=== PATIENT | female | born 1960 | race Caucasian/White ===

== ENCOUNTER → 2019-03-26 | Outpatient (CLI) | payer MEDICARE ==
[~2019-03-26] MED LIST: CPR500T PO; DIPH1TAB45 PO; GBPN600T PO; LEVO200T39 PO; LOSA100T16 PO; MELO-195 PO; METR500T PO; PRED-398 PO; TRAM50TA2 PO
--- NOTE | 2019-03-26 16:28 | Diagnostic Imaging Report ---
PATIENT HISTORY: FALL DOWN STAIRS ONE MONTH AGO. RT HIP PAIN. TECHNIQUE: Two views of the right hip. COMPARISON: CT from 2013. FINDINGS: There is end-stage osteoarthritis of the right hip joint with complete joint space loss, marked subchondral sclerosis, prominent osteophytes, and osteonecrosis with flattening of the superior femoral head. No acute fracture is seen. There are degenerative changes in the right sacroiliac joint. IMPRESSION: End-stage osteoarthritis in the right hip joint. No acute fracture is seen. Dictated by: Dictated on workstation # [id number]
== END ==
LOC: RAD 15:04
PROVIDERS: ATTEND Nurse Practitioner Family
DX: M16.11 Unilateral primary osteoarthritis, right hip (principal)
CPT/HCPCS: 73502

== ENCOUNTER → 2019-05-09 | Outpatient (CLI) | payer MEDICARE ==
--- NOTE | 2019-05-09 17:13 | Diagnostic Imaging Report ---
PROCEDURE: US Non-ob pelvis comp/trans. TECHNIQUE: Multiple realtime grayscale images were obtained of the pelvis in various projections endovaginally. Transabdominal imaging was also performed. INDICATION: Postmenopausal bleeding. FINDINGS: Uterus measures 9.0 x 3.9 x 4.0 cm. The endometrium is 7 mm in thickness. No myometrial mass is detected. Ovaries are not visualized. No adnexal mass or free fluid is seen. IMPRESSION: Nonvisualized ovaries. The study is otherwise unremarkable. Dictated by: Dictated on workstation # [id number]
== END ==
LOC: RAD 14:05
PROVIDERS: ATTEND Obstetrics & Gynecology
DX: N95.0 Postmenopausal bleeding (principal); Z78.0 Asymptomatic menopausal state
CPT/HCPCS: 76830; 76856

== ENCOUNTER 2019-07-15 17:56 | Inpatient (IN) | payer MEDICARE ==
[~2019-07-15] VITALS: Ht 167.6 cm; Wt 150.3 kg
[2019-07-15] MEDS ORDERED: PIPERACILLIN SODIUM/TAZOBACTAM 4.5 GM in NS (IVPB) 100 ML IV ONE (18:15)
[2019-07-15] MEDS ORDERED: ONDANSETRON 4 MG/2 ML (SDV) Z0FRAN IVP ONE (18:15)
[2019-07-15] MEDS ORDERED: NS IV 1000 ML 1,000 ML IV ONE (18:15)
[2019-07-15 18:22] LABS: BASOPHILS % (AUTO) 0 % (0-10); EOSINOPHILS % (AUTO) 0 % (0-10); HEMATOCRIT 47 % (35-52); HEMOGLOBIN 14.7 G/DL (11.5-16.0); LYMPHOCYTES # (AUTO) 0.8 X 10^3 (1.0-4.0); LYMPHOCYTES % (AUTO) 9 % (12-44); MEAN CORPUSCULAR HEMOGLOBIN 28 PG (25-34); MEAN CORPUSCULAR HGB CONC 31 G/DL (32-36); MEAN CORPUSCULAR VOLUME 89 FL (80-99); MEAN PLATELET VOLUME 11.6 FL (7.4-10.4); MONOCYTES # (AUTO) 0.7 X 10^3 (0.0-1.0); MONOCYTES % (AUTO) 7 % (0-12); NEUTROPHILS % (AUTO) 84 % (42-75); PLATELET COUNT 180 10^3/uL (130-400); RED CELL DISTRIBUTION WIDTH 13.9 % (10.0-14.5); WHITE BLOOD COUNT 9.6 10^3/uL (4.3-11.0)
--- NOTE | 2019-07-15 18:22 | ED General ---
General Chief Complaint: - Urinary Stated Complaint: FEVER/NAUSEA/YEAST INFECTION/POSS UTI Nursing Triage Note: COMPLAINS A YEAST INFECTION AND UTI X10 DAYS. Nursing Sepsis Screen: Possible Severe Sepsis Risk Source of Information: Patient, Family Exam Limitations: No Limitations History of Present Illness Date Seen by Provider: Jul 15, 2019 Time Seen by Provider: 18:07 Initial Comments This 58 year old woman presents to the ER with fever x 5 days and dysuria x 10 days. She has been confused although she is alert and oriented at present. She has had nausea without vomiting, constipation, or diarrhea. She states her dysuria is an intense burning with urination. She also wonders if she has a urinary tract infection. She reports intermittent vaginal bleeding for several months. She has seen Dr. TERRAZAS for this. She states he told her she would need D&C or biopsy if it occurred again. She did have vaginal bleeding through the weekend. She complains of generalized abdominal pain that is tender to palpation throughout this illness. Pain is worse when she eats certain foods including spicy foods. Patient is febrile on presentation. Although patient was calm during my assessment, nursing staff reported she was near hysterical when she was first checked again. Allergies and Home Medications Allergies Coded Allergies: dexamethasone (Unverified Adverse Reaction, Unknown, 07/15/19) dexamethasone sod phosphate (Unverified Adverse Reaction, Unknown, 07/15/19) diphenhydramine HCl (Unverified Adverse Reaction, Unknown, 07/15/19) Home Medications Gabapentin 600 Mg Tab, 600 MG PO TID, (Reported) Levothyroxine Sodium 200 Mcg Tablet, 200 MCG PO DAILY, (Reported) Losartan Potassium 100 Mg Tablet, 1 EACH PO DAILY, (Reported) Prednisone 5 Mg Tablet.dr, 5 MG PO Q12H, (Reported) Patient Home Medication List Home Medication List Reviewed: Yes Review of Systems Review of Systems Constitutional: see HPI EENTM: no symptoms reported Respiratory: no symptoms reported Cardiovascular: no symptoms reported Gastrointestinal: see HPI Genitourinary: see HPI : No Musculoskeletal: back pain Skin: no symptoms reported Psychiatric/Neurological: No Symptoms Reported Hematologic/Lymphatic: No Symptoms Reported Immunological/Allergic: no symptoms reported Past Iudocss-Tgcbuo-Gimlyq Hx Past Med/Social Hx: Reviewed and Corrections made Patient Social History Alcohol Use: Rarely Uses Recreational Drug Use: No Smoking Status: Never a Smoker Recent Foreign Travel: No Contact w/Someone Who Travel: No Recent Infectious Disease Expo: No Past Medical History Surgeries: Yes (sinus surgery) Parathyroidectomy, Thyroidectomy Respiratory: No Cardiac: Yes Hypertension Neurological: No : No Reproductive Disorders: Yes (postmenopausal bleeding) [employer] History: Menopausal Genitourinary: No Gastrointestinal: No Musculoskeletal: Yes Rheumatoid Arthritis, Chronic Back Pain Endocrine: Yes Hypothyroidsim, Lupus HEENT: No Cancer: No Psychosocial: No Integumentary: No Physical Exam-Suspected Sepsis Physical Exam Vital Signs Vital Signs - First Documented 07/15/19 07/15/19 18:00 20:59 Temp 102.6 Pulse 94 Resp 16 B/P (MAP) 175/108 (130) Pulse Ox 99 O2 Delivery Room Air O2 Flow Rate 2.00 Capillary Refill : Less Than 3 Seconds Blood Pressure Mean: 130 Height, Weight, BMI Height: 5'6.00" Weight: 345lbs. oz. 156.312454zc; BMI Method:Stated General Appearance: No Apparent Distress, WD/WN, Obese HEENT: PERRL/EOMI, Normal ENT Inspection, Other (mucous membranes moist) Neck: Normal Inspection, Other (thyroidectomy scar) Respiratory: Lungs Clear, Normal Breath Sounds, No Accessory Muscle Use, No Respiratory Distress Cardiovascular: Regular Rate, Rhythm, No Edema, No Murmur, Normal Peripheral Pulses Gastrointestinal: Normal Bowel Sounds, Soft, Tenderness (diffuse) Extremity: Normal Inspection, No Pedal Edema, Slow Capillary Refill (proximally 5 seconds) Neurologic/Psychiatric: Alert, Oriented x3, No Motor/Sensory Deficits, Normal Mood/Affect, human resources team member II-XII Norm as Tested, Other (nursing staff reported she was extremely anxious during initial assessment) Skin: normal color, warm/dry Focused Exam Lactate Level 07/15/19 18:11: Lactic Acid Level 2.49*H 07/15/19 20:40: Lactic Acid Level 0.92 Lactic Acid Level Progress/Results/Core Measures Suspected Sepsis Recent Fever Within 48 Hours: Yes Infection Criteria Present: Suspected New Infection New/Unexplained Altered Menta: Yes Sepsis Screen: Possible Severe Sepsis Risk SIRS Temperature:102.6 Pulse: 94 Respiratory Rate: 16 Laboratory Tests 07/15/19 18:11: White Blood Count 9.6 07/16/19 05:40: White Blood Count 10.6 Blood Pressure 175 /108 Mean: 130 07/15/19 18:11: Lactic Acid Level 2.49*H 07/15/19 20:40: Lactic Acid Level 0.92 Laboratory Tests 07/15/19 18:11: Creatinine 0.83, INR Comment 1.1, Platelet Count 180, Total Bilirubin 0.5 07/16/19 05:40: Creatinine 0.79, Platelet Count 184, Total Bilirubin 0.6 Results/Orders Lab Results Laboratory Tests Test 07/15/19 18:11 07/15/19 18:20 07/15/19 20:40 07/16/19 05:40 Range/Units White Blood Count 9.6 10.6 4.3-11.0 10^3/uL Red Blood Count 5.29 4.70 4.35-5.85 10^6/uL Hemoglobin 14.7 13.0 11.5-16.0 G/DL Hematocrit 47 42 35-52 % Mean Corpuscular Volume 89 90 80-99 FL Mean Corpuscular Hemoglobin 28 28 25-34 PG Mean Corpuscular Hemoglobin Concent 31 L 31 L 32-36 G/DL Red Cell Distribution Width 13.9 14.2 10.0-14.5 % Platelet Count 180 184 130-400 10^3/uL Mean Platelet Volume 11.6 H 11.2 H 7.4-10.4 FL Neutrophils (%) (Auto) 84 H 68 42-75 % Lymphocytes (%) (Auto) 9 L 19 12-44 % Monocytes (%) (Auto) 7 13 H 0-12 % Eosinophils (%) (Auto) 0 0 0-10 % Basophils (%) (Auto) 0 0 0-10 % Neutrophils # (Auto) 8.0 H 7.2 1.8-7.8 X 10^3 Lymphocytes # (Auto) 0.8 L 2.0 1.0-4.0 X 10^3 Monocytes # (Auto) 0.7 1.3 H 0.0-1.0 X 10^3 Eosinophils # (Auto) 0.0 0.0 0.0-0.3 10^3/uL Basophils # (Auto) 0.0 0.0 0.0-0.1 10^3/uL Prothrombin Time 14.3 12.2-14.7 SEC INR Comment 1.1 0.8-1.4 Activated Partial Thromboplast Time 30 24-35 SEC Sodium Level 139 140 135-145 MMOL/L Potassium Level 3.9 3.7 3.6-5.0 MMOL/L Chloride Level 100 105 98-107 MMOL/L Carbon Dioxide Level 26 26 21-32 MMOL/L Anion Gap 13 9 5-14 MMOL/L Blood Urea Nitrogen 13 11 7-18 MG/DL Creatinine 0.83 0.79 0.60-1.30 MG/DL Estimat Glomerular Filtration Rate > 60 > 60 BUN/Creatinine Ratio 16 14 Glucose Level 144 H 105 70-105 MG/DL Lactic Acid Level 2.49 *H 0.92 0.50-2.00 MMOL/L Calcium Level 8.8 8.0 L 8.5-10.1 MG/DL Corrected Calcium 8.9 8.5 8.5-10.1 MG/DL Total Bilirubin 0.5 0.6 0.1-1.0 MG/DL Aspartate Amino Transf (AST/SGOT) 17 11 5-34 U/L Alanine Aminotransferase (ALT/SGPT) 23 22 0-55 U/L Alkaline Phosphatase 107 77 40-136 U/L Total Protein 7.6 6.5 6.4-8.2 GM/DL Albumin 3.9 3.4 3.2-4.5 GM/DL Lipase 9 8-78 U/L Thyroid Stimulating Hormone (TSH) 0.18 L 0.35-4.94 UIU/ML Free Thyroxine 1.54 H 0.70-1.48 NG/DL Urine Color YELLOW Urine Clarity VERY CLOUDY H Urine pH 6.5 5-9 Urine Specific [place] 1.010 L 1.016-1.022 Urine Protein 2+ H NEGATIVE Urine Glucose (UA) NEGATIVE NEGATIVE Urine Ketones NEGATIVE NEGATIVE Urine Nitrite NEGATIVE NEGATIVE Urine Bilirubin NEGATIVE NEGATIVE Urine Urobilinogen NORMAL NORMAL MG/DL Urine Leukocyte Esterase 3+ H NEGATIVE Urine RBC (Auto) 4+ H NEGATIVE Urine RBC 0-2 /HPF Urine WBC >100 H /HPF Urine Squamous Epithelial Cells 5-10 /HPF Urine Crystals NONE /LPF Urine Bacteria TRACE /HPF Urine Casts NONE /LPF Urine Mucus NEGATIVE /LPF Urine Culture Indicated CULTURE PENDING Micro Results Microbiology 07/15/19 Influenza Types A,B Antigen ([facility]) - Final, Complete My Orders Orders - WILBER RODRÍGUEZ MD Cbc With Automated Diff (07/15/19 18:15) Comprehensive Metabolic Panel (07/15/19 18:15) Blood Culture (07/15/19 18:15) Sputum Culture (07/15/19 18:15) Urinalysis (07/15/19 18:15) Urine Culture (07/15/19 18:15) Protime With Inr (07/15/19 18:15) Partial Thromboplastin Time (07/15/19 18:15) Chest 1 View, Ap/Pa Only (07/15/19 18:15) Ed Iv/Invasive Line Start (07/15/19 18:15) Ed Iv/Invasive Line Start (07/15/19 18:15) O2 (07/15/19 18:15) Remove Rings In Anticipation O (07/15/19 18:15) Lactic Acid Analyzer (07/15/19 18:15) Piperacillin Sodium/Tazobactam (Zosyn Vi (07/15/19 18:15) Ed Iv/Invasive Line Start (07/15/19 18:15) Ns Iv 1000 Ml (Sodium Chloride 0.9%) (07/15/19 18:15) Lipase (07/15/19 18:15) Ondansetron Injection (Zofran Injectio (07/15/19 18:15) Catheter(Urinary) Care .0300, 1500 (07/15/19 18:18) Free T4 (Free Thyroxine) (07/15/19 18:11) Thyroid Stimulating Hormone (07/15/19 18:11) Influenza A And B Antigens (07/15/19 18:43) Iohexol Injection (Omnipaque 350 Mg/Ml 1 (07/15/19 19:00) Received Contrast (Hold Metformin- Contr (07/15/19 19:00) Ns (Ivpb) (Sodium Chloride 0.9% Ivpb Bag (07/15/19 19:00) Ct Abdomen/Pelvis Wo (07/15/19 19:05) Acetaminophen Tablet (Tylenol Tablet) (07/15/19 20:15) Medications Given in ED Vital Signs/I&O 07/15/19 07/15/19 07/15/19 07/15/19 20:59 21:27 21:27 21:30 Temp 103.5 100.4 100.4 Pulse 84 89 89 Resp 18 20 20 B/P (MAP) 175/108 (130) 111/53 (72) 111/53 Pulse Ox 94 93 93 O2 Delivery Nasal Cannula Nasal Cannula Nasal Cannula Room Air O2 Flow Rate 2.00 2.00 2.00 07/15/19 07/16/19 07/16/19 07/16/19 22:35 00:25 01:00 03:35 Temp 99.2 98.3 Pulse 70 75 77 71 Resp 20 20 B/P (MAP) 114/58 (76) 124/59 (80) Pulse Ox 93 94 O2 Delivery Nasal Cannula Nasal Cannula O2 Flow Rate 2.00 2.00 07/16/19 00:00 Intake Total 100 ml Balance 100 ml Capillary Refill : Less Than 3 Seconds Blood Pressure Mean: 130 Progress Note #1: Time: 18:20 Progress Note Patient was seen and examined. Sepsis is suspected given her symptoms of infection and fever. Septic workup is being pursued. I anticipate CT imaging of the abdomen and pelvis due to her abdominal pain in context of fever. Zosyn will be administered after the second blood culture is drawn for empiric antibiotic therapy. Labs, urine, and x-ray are pending. IV fluids are being initiated. Progress Note #2: Time: 20:16 Progress Note Patient received Zosyn, Zofran, and a liter of IV fluid. Tylenol will be given for fever. CT demonstrated no overt source of infection. Source of infection is presumed to be the urinary tract infection. She does have criteria for sepsis with fever and heart rate greater than 90 on initial assessment. Due to possible presence of gallstones on CT, we will order a gallbladder ultrasound for tomorrow morning. Dr. Valdez will be consulted. In the meantime, patient will continue on IV fluids and IV antibiotics. We will allow her clear liquid diet with NPO status after 01:00 in preparation for ultrasound. Patient was noted to have hypoxia of around 90 percent on room air. Her fingers and toes appear dusky with capillary refill of approximately 5 seconds. Patient states this is a chronic problem and was present prior to her illness. I suspect that she has rate nods. Given the chronic nature of this finding, I do not think it relates to her sepsis. However, oxygen was placed at 2 L/m by nasal cannula. Progress Note #3: Time: 20:[address] Valdez has been to the emergency room and we discussed the case and reviewed imaging together. He does not believe an ultrasound is necessary for further evaluation of the gallbladder. He plans to discuss potential cholecystectomy with the patient when she is stable. We will make her nothing by mouth after midnight. Diagnostic Imaging Diagonstic Imaging: Xray Plain Films/CT/US/NM/MRI: chest Comments Chest x-ray viewed by me and report reviewed. See report below: NAME: ENMANUEL ANAYA [facility] REC#: [id number] PT STATUS: REG ER : 1960 PHYSICIAN: WILBER RODRÍGUEZ MD ADMIT DATE: 07/15/19/ER Signed Date of Exam:07/15/19 CHEST 1 VIEW, AP/PA ONLY CHEST 1 VIEW, AP/PA ONLY Indication: Fever, nausea. Comparison: None available. Findings: No focal airspace disease in the visualized lungs. Please note that the posterior lower lobes are poorly evaluated by portable radiography. No pleural effusion or pneumothorax. Normal cardiomediastinal silhouette. Impression: No acute cardiopulmonary process by portable radiography. Dictated by: Dictated on workstation # [id number] Dict: 07/15/191855 Trans: 07/15/191855 [facility] [id number] Interpreted by: RAYNA GARCÍA MD Electronically signed by: RAYNA GARCÍA MD 07/15/191855 Diagonstic Imaging: CT Plain Films/CT/US/NM/MRI: abdomen, pelvis Comments CT abdomen and pelvis viewed by me and report reviewed. See report below: NAME: ENMANUEL ANAYA [facility] REC#: [id number] PT STATUS: REG ER : 1960 PHYSICIAN: WILBER RODRÍGUEZ MD ADMIT DATE: 07/15/19/ER Signed Date of Exam: 07/15/19 CT ABDOMEN/PELVIS WO PROCEDURE: CT abdomen and pelvis without contrast. TECHNIQUE: Multiple contiguous axial images were obtained through the abdomen and pelvis without the use of intravenous contrast. Auto Exposure Controls were utilized during the CT exam to meet ALARA standards for radiation dose reduction. INDICATION: Left lower quadrant pain. COMPARISON: 05/07/2013. FINDINGS: Evaluation of the abdominal viscera is mildly limited without contrast. Lower chest: The lung bases are clear. No pericardial or pleural effusion. Peritoneum: No free intraperitoneal air or fluid. Liver and biliary system: Unenhanced liver is normal. Hyperattenuation of the gallbladder may represent cholelithiasis. No CT features of acute cholecystitis or biliary duct obstruction. Spleen and Pancreas: Spleen is normal. Unenhanced pancreas is grossly normal. Adrenals: Normal. tract: No renal or ureteral calculi. No obstructive uropathy. Uterus is normal in appearance. No adnexal mass. GI tract: Stomach is decompressed. No bowel obstruction. No pericolonic inflammatory changes. There are a few scattered descending and sigmoid colon diverticula without features of diverticulitis. Vasculature and Lymph nodes: Normal caliber aorta. No abdominal or pelvic lymphadenopathy. Musculoskeletal: No concerning osseous lesion. Severe degenerative arthritis of both hips. No abdominal, pelvic, or inguinal hernia. IMPRESSION: 1. Colonic diverticulosis without features of diverticulitis. 2. Potential cholelithiasis. No CT features of acute cholecystitis or biliary obstruction. 3. Severe/end-stage degenerative arthritis of both hips. Dictated by: Dictated on workstation # [id number] Dict: 07/15/191926 Trans: 07/15/192005 Interpreted by: RAYNA GARCÍA MD Electronically signed by: RAYNA GARCÍA MD 07/15/192005 Departure Communication (Admissions) Time/Spoke to Admitting Phy: 20:00 Dr. Pham Time/Spoke to Consulting Phy: 20:05 Dr. Valdez Impression Primary Impression: Sepsis Qualified Codes: A41.9 - Sepsis, unspecified organism Additional Impressions: Urinary tract infection Qualified Codes: N39.0 - Urinary tract infection, site not specified Acute generalized abdominal pain Thyroid dysfunction Hypoxia Cholelithiasis Qualified Codes: K80.20 - Calculus of gallbladder without cholecystitis without obstruction Disposition: ADMITTED INPATIENT Condition: Improved Admissions Decision to Admit Reason: Admit from ER (General) Decision to Admit/Date: Jul 15, 2019 Time/Decision to Admit Time: 18:15 Departure-Patient Inst. Referrals: [facility] (PCP) Primary Care Physician CARO GUSTAFSON TERRAZZO JOURNEYMAN (Family) Primary Care Physician WILBER RODRÍGUEZ MD Jul 15, 2019 18:22
[2019-07-15 18:32] LABS: INR 1.1 (0.8-1.4); PROTHROMBIN TIME PATIENT 14.3 SEC (12.2-14.7)
[2019-07-15 18:33] LABS: BILIRUBIN,URINE NEGATIVE (NEGATIVE); CLARITY,URINE VERY CLOUDY; COLOR,URINE YELLOW; GLUCOSE, URINE (UA) NEGATIVE (NEGATIVE); KETONES,URINE NEGATIVE (NEGATIVE); LEUKOCYTE ESTERASE ,URINE 3+ (NEGATIVE); NITRITE,URINE NEGATIVE (NEGATIVE); PH,URINE 6.5 (5-9); PROTEIN,URINE 2+ (NEGATIVE); UROBILINOGEN,URINE NORMAL (NORMAL)
[2019-07-15 18:40] LABS: ALANINE AMINOTRANSFERASE 23 U/L (0-55); ALBUMIN 3.9 GM/DL (3.2-4.5); ALKALINE PHOSPHATASE 107 U/L (40-136); BILIRUBIN,TOTAL 0.5 MG/DL (0.1-1.0); BUN/CREATININE RATIO 16; CALCIUM 8.8 MG/DL (8.5-10.1); CARBON DIOXIDE 26 MMOL/L (21-32); CHLORIDE 100 MMOL/L (98-107); CREATININE SERUM 0.83 MG/DL (0.60-1.30); GFR ESTIMATED > 60; GLUCOSE 144 MG/DL (70-105); LIPASE 9 U/L (8-78); POTASSIUM 3.9 MMOL/L (3.6-5.0); SODIUM 139 MMOL/L (135-145); TOTAL PROTEIN 7.6 GM/DL (6.4-8.2)
[2019-07-15 18:41] LABS: BACTERIA,URINE TRACE /HPF; RBC,URINE 0-2 /HPF; WBC,URINE >100 /HPF
--- NOTE | 2019-07-15 18:59 | Diagnostic Imaging Report ---
CHEST 1 VIEW, AP/PA ONLY Indication: Fever, nausea. Comparison: None available. Findings: No focal airspace disease in the visualized lungs. Please note that the posterior lower lobes are poorly evaluated by portable radiography. No pleural effusion or pneumothorax. Normal cardiomediastinal silhouette. Impression: No acute cardiopulmonary process by portable radiography. Dictated by: Dictated on workstation # [id number]
[2019-07-15] MEDS ORDERED: IOHEXOL 350 MG/ML 100 ML (OMNIPAQUE 350) VIAL IV ONE (19:00)
[2019-07-15] MEDS ORDERED: HOLD METFORMIN - RECEIVED CONTRAST 20 ML VIAL IV SCH (19:00)
[2019-07-15] MEDS ORDERED: NS 100 ML (IVPB) BAG IV ONE (19:00)
[2019-07-15 19:01] LABS: FREE T4 (FREE THYROXINE) 1.54 NG/DL (0.70-1.48)
--- NOTE | 2019-07-15 19:12 | NUR ---
pt to CT to obtain images
--- NOTE | 2019-07-15 19:35 | Diagnostic Imaging Report ---
PROCEDURE: CT abdomen and pelvis without contrast. TECHNIQUE: Multiple contiguous axial images were obtained through the abdomen and pelvis without the use of intravenous contrast. Auto Exposure Controls were utilized during the CT exam to meet ALARA standards for radiation dose reduction. INDICATION: Left lower quadrant pain. COMPARISON: 05/07/2013. FINDINGS: Evaluation of the abdominal viscera is mildly limited without contrast. Lower chest: The lung bases are clear. No pericardial or pleural effusion. Peritoneum: No free intraperitoneal air or fluid. Liver and biliary system: Unenhanced liver is normal. Hyperattenuation of the gallbladder may represent cholelithiasis. No CT features of acute cholecystitis or biliary duct obstruction. Spleen and Pancreas: Spleen is normal. Unenhanced pancreas is grossly normal. Adrenals: Normal. tract: No renal or ureteral calculi. No obstructive uropathy. Uterus is normal in appearance. No adnexal mass. GI tract: Stomach is decompressed. No bowel obstruction. No pericolonic inflammatory changes. There are a few scattered descending and sigmoid colon diverticula without features of diverticulitis. Vasculature and Lymph nodes: Normal caliber aorta. No abdominal or pelvic lymphadenopathy. Musculoskeletal: No concerning osseous lesion. Severe degenerative arthritis of both hips. No abdominal, pelvic, or inguinal hernia. IMPRESSION: 1. Colonic diverticulosis without features of diverticulitis. 2. Potential cholelithiasis. No CT features of acute cholecystitis or biliary obstruction. 3. Severe/end-stage degenerative arthritis of both hips. Dictated by: Dictated on workstation # [id number]
--- NOTE | 2019-07-15 19:58 | NUR ---
O2 applied via NC at 2 L/min per physician
[2019-07-15] MEDS ORDERED: ACETAMINOPHEN 500 MG TAB (TYLENOL) PO ONE (20:15)
--- NOTE | 2019-07-15 20:53 | NUR ---
report given to Lolis QUINN
--- NOTE | 2019-07-15 20:55 | NUR ---
pt reports pain to be a 6/10
--- NOTE | 2019-07-15 21:04 | Consultation - Surgery ---
GRACE JOSÉ,MED STUDENT 07/15/19 2104: History of Present Illness History of Present Illness Patient Consulted On(homa/time) 07/15/19 20:59 Date Seen by Provider: Jul 15, 2019 Time Seen by Provider: 20:50 History of Present Illness Surgery consulted regarding abdominal pain. HPI per ED: "This 58 year old woman presents to the ER with fever x 5 days and dysuria x 10 days. She has been confused although she is alert and oriented at present. She has had nausea without vomiting, constipation, or diarrhea. She states her dysuria is an intense burning with urination. She also wonders if she has a urinary tract infection. She reports intermittent vaginal bleeding for several months. She has seen Dr. TERRAZAS for this. She states he told her she would need D&C or biopsy if it occurred again. She did have vaginal bleeding through the weekend. She complains of generalized abdominal pain that is tender to palpation throughout this illness. Pain is worse when she eats certain foods including spicy foods. Patient is febrile on presentation. Although patient was calm during my assessment, nursing staff reported she was near hysterical when she was first checked again." Pt states for years she has had right upper abdominal pain that, in the past year, has begun to worsen. At visit, she states her pain is a constant 3/10 with intermittent 8/10 crampy pain that occurs around mealtimes. She states apples and grapes bring on her pain and has not noticed anything that alleviates the pain. Pain radiates through her abdomen to her back bilaterally. Allergies and Home Medications Allergies Coded Allergies: dexamethasone (Unverified Adverse Reaction, Unknown, 07/15/19) dexamethasone sod phosphate (Unverified Adverse Reaction, Unknown, 07/15/19) diphenhydramine HCl (Unverified Adverse Reaction, Unknown, 07/15/19) Home Medications Gabapentin 600 Mg Tab, 600 MG PO TID, (Reported) Levothyroxine Sodium 200 Mcg Tablet, 200 MCG PO DAILY, (Reported) Losartan Potassium 100 Mg Tablet, 1 EACH PO DAILY, (Reported) Prednisone 5 Mg Tablet.dr, 5 MG PO Q12H, (Reported) Patient Home Medication List Home Medication List Reviewed: Yes Past Rifejfb-Yuiixb-Umdacr Hx Patient Social History Alcohol Use: Rarely Uses Recreational Drug Use: No Smoking Status: Never a Smoker Recent Foreign Travel: No Contact w/Someone Who Travel: No Recent Infectious Disease Expo: No Surgeries History of Surgeries: Yes (sinus surgery) Surgeries: Parathyroidectomy, Thyroidectomy Respiratory History of Respiratory Disorde: No Cardiovascular History of Cardiac Disorders: Yes Cardiac Disorders: Hypertension Neurological History of Neurological Disord: No Reproductive System : No Hx Reproductive Disorders: Yes (postmenopausal bleeding) REALTY SPECIALIST History: Menopausal Genitourinary History of Genitourinary Disor: No Gastrointestinal History of Gastrointestinal Di: No Musculoskeletal History of Musculoskeletal Dis: Yes Musculoskeletal Disorders: Rheumatoid Arthritis, Chronic Back Pain Endocrine History of Endocrine Disorders: Yes Endocrine Disorders: Hypothyroidsim, Lupus HEENT History of HEENT Disorders: No Cancer History of Cancer: No Psychosocial History of Psychiatric Problem: No Integumentary History of Skin or Integumenta: No Family Medical History Significant Family History: Heart Disease (father), Cancer (mother and father ), Stroke (mother) Review of Systems-General Constitutional: chills; No diaphoresis; fever EENTM: eye pain; No ear discharge, No hearing loss, No ear pain Respiratory: No cough, No dyspnea on exertion; orthopnea (improves with sitting upright ); No short of breath Cardiovascular: chest pain (R lower rib pain ); No edema Gastrointestinal: abdominal pain (diffuse ); No constipation, No diarrhea, No dysphagia, No melena; nausea; No vomiting Genitourinary: frequency, incontinence (stress, states it is related to her d egenerative joint disease ) Musculoskeletal: back pain, joint pain Skin: No lesions, No lumps, No rash Psychiatric/Neurological: Anxiety (one week onset ); Denies Depressed; Headache Other Denies abnormal bleeding disorder. Denies heat/cold intolerance. Physical Exam-General Problems Physical Exam Vital Signs Vital Signs - First Documented 07/15/19 18:00 Temp 102.6 Pulse 94 Resp 16 B/P (MAP) 175/108 (130) Pulse Ox 99 O2 Delivery Room Air Capillary Refill : Less Than 3 Seconds General Appearance: WD/WN, no apparent distress Eyes: Bilateral Eye PERRL, Bilateral Eye EOMI HEENT: No scleral icterus (R), No scleral icterus (L), No pale conjunctivae (R), No pale conjunctivae (L) Respiratory: No chest non-tender; lungs clear, normal breath sounds, no respiratory distress, no accessory muscle use Cardiovascular: regular rate, rhythm Gastrointestinal: soft, distended, guarding (voluntary), tenderness (RUQ, epigastric and midline ) Rectal: deferred Neurologic/Psychiatric: alert, normal mood/affect, oriented x 3 Skin: normal color, warm/dry Data Review Labs Laboratory Tests 07/15/19 18:11: White Blood Count 9.6, Red Blood Count 5.29, Hemoglobin 14.7, Hematocrit 47, Mean Corpuscular Volume 89, Mean Corpuscular Hemoglobin 28, Mean Corpuscular Hemoglobin Concent 31L, Red Cell Distribution Width 13.9, Platelet Count 180, Mean Platelet Volume 11.6H, Neutrophils (%) (Auto) 84H, Lymphocytes (%) (Auto) 9L, Monocytes (%) (Auto) 7, Eosinophils (%) (Auto) 0, Basophils (%) (Auto) 0, Neutrophils # (Auto) 8.0H, Lymphocytes # (Auto) 0.8L, Monocytes # (Auto) 0.7, Eosinophils # (Auto) 0.0, Basophils # (Auto) 0.0, Prothrombin Time 14.3, INR Comment 1.1, Activated Partial Thromboplast Time 30, Sodium Level 139, Potassium Level 3.9, Chloride Level 100, Carbon Dioxide Level 26, Anion Gap 13, Blood Urea Nitrogen 13, Creatinine 0.83, Estimat Glomerular Filtration Rate > 60, BUN/Crea tinine Ratio 16, Glucose Level 144H, Lactic Acid Level 2.49*H, Calcium Level 8.8, Corrected Calcium 8.9, Total Bilirubin 0.5, Aspartate Amino Transf (AST/SGOT) 17, Alanine Aminotransferase (ALT/SGPT) 23, Alkaline Phosphatase 107, Total Protein 7.6, Albumin 3.9, Lipase 9, Thyroid Stimulating Hormone (TSH) 0.18L, Free Thyroxine 1.54H 07/15/19 18:20: Urine Color YELLOW, Urine Clarity VERY CLOUDYH, Urine pH 6.5, Urine Specific [place] 1.010L, Urine Protein 2+H, Urine Glucose (UA) NEGATIVE, Urine Ketones NEGATIVE, Urine Nitrite NEGATIVE, Urine Bilirubin NEGATIVE, Urine Urobilinogen NORMAL, Urine Leukocyte Esterase 3+H, Urine RBC (Auto) 4+H, Urine RBC 0-2, Urine WBC >100H, Urine Squamous Epithelial Cells 5-10, Urine Crystals NONE, Urine Bacteria TRACE, Urine Casts NONE, Urine Mucus NEGATIVE, Urine Culture Indicated CULTURE PENDING 07/15/19 20:40: Microbiology 07/15/19 Influenza Types A,B Antigen (RAQUEL) - Final, Complete Assessment/Plan Assessment/Plan Assessment/Plan Cholelithiasis Urinary tract infection Possible sepsis Admit to med/surg and continue IVF, pain management and antibiotics for urinary tract infection. Spoke with patient about performing cholecystectomy during her hospitalization for ongoing kidney infection or electively as an outpatient. Will continue to follow. YAYO VALDEZ DO 07/15/19 2210: History of Present Illness History of Present Illness Time Seen by Provider: 20:50 Allergies and Home Medications Allergies Coded Allergies: dexamethasone (Unverified Adverse Reaction, Unknown, 07/15/19) dexamethasone sod phosphate (Unverified Adverse Reaction, Unknown, 07/15/19) diphenhydramine HCl (Unverified Adverse Reaction, Unknown, 07/15/19) Home Medications Gabapentin 600 Mg Tab, 600 MG PO TID, (Reported) Levothyroxine Sodium 200 Mcg Tablet, 200 MCG PO DAILY, (Reported) Losartan Potassium 100 Mg Tablet, 1 EACH PO DAILY, (Reported) Prednisone 5 Mg Tablet.dr, 5 MG PO Q12H, (Reported) Physical Exam-General Problems Physical Exam Neck: non-tender; No thyromegaly Back: no vertebral tenderness, CVA tenderness (R) Extremities: no pedal edema, no calf tenderness Supervisory-Addendum Brief Verification & Attestation Participated in pt care: history, MDM, physical Personally performed: exam, history, MDM Care discussed with: Medical Student Procedures: n/a Verification and Attestation of Medical Student E/M Service A medical student performed and documented this service in my presence. I reviewed and verified all information documented by the medical student and made modifications to such information, when appropriate. I personally performed the physical exam and medical decision making. Yayo Valdez, Jul 15, 2019,22:10 GRACE JOSÉ,MED STUDENT Jul 15, 2019 21:04 YAYO VALDEZ DO Jul 15, 2019 22:10
[2019-07-15 21:27] VITALS: BP 111/53
--- NOTE | 2019-07-15 21:50 | NUR ---
Admitted to room 418 per cart from ER. Alert and oriented x4. Unable to ambulate. Voided per bedpan. States abdominal pain 4/6. States the best she has felt all day. Temp 100.4 temporal. Water given per request.
[2019-07-15] MEDS: GABAPENTIN 600 MG (NEURONTIN) TAB PO PRN (22:46)
[2019-07-15] MEDS: NS IV 1000 ML 1,000 ML IV SCH (22:47)
[2019-07-15] MEDS ORDERED: NS (IVPB) 100 ML ONE (23:21)
[2019-07-15] MEDS ORDERED: PIPERACILLIN/TAZO 4.5 GM VIAL (ZOSYN) IV ONE (23:21)
[2019-07-16] MEDS: PIPERACILLIN/TAZO 4.5 GM/NS 100 ML IV SCH ×6 (00:08→15:20)
[2019-07-16 00:25] VITALS: BP 114/58
[2019-07-16 03:35] VITALS: BP 124/59
[2019-07-16] MEDS: GABAPENTIN 600 MG (NEURONTIN) TAB PO PRN ×3 (05:10→23:55)
[2019-07-16] MEDS: LEVOTHYROXINE 75 MCG (LEVOTHROID) TABLET PO SCH (05:10)
[2019-07-16 05:58] LABS: BASOPHILS % (AUTO) 0 % (0-10); EOSINOPHILS % (AUTO) 0 % (0-10); HEMATOCRIT 42 % (35-52); LYMPHOCYTES % (AUTO) 19 % (12-44); MEAN CORPUSCULAR HEMOGLOBIN 28 PG (25-34); MEAN CORPUSCULAR HGB CONC 31 G/DL (32-36); MEAN CORPUSCULAR VOLUME 90 FL (80-99); MEAN PLATELET VOLUME 11.2 FL (7.4-10.4); MONOCYTES # (AUTO) 1.3 X 10^3 (0.0-1.0); MONOCYTES % (AUTO) 13 % (0-12); NEUTROPHILS # (AUTO) 7.2 X 10^3 (1.8-7.8); NEUTROPHILS % (AUTO) 68 % (42-75); PLATELET COUNT 184 10^3/uL (130-400); RED CELL DISTRIBUTION WIDTH 14.2 % (10.0-14.5); WHITE BLOOD COUNT 10.6 10^3/uL (4.3-11.0)
[2019-07-16 06:19] LABS: ALANINE AMINOTRANSFERASE 22 U/L (0-55); ALBUMIN 3.4 GM/DL (3.2-4.5); ALKALINE PHOSPHATASE 77 U/L (40-136); BILIRUBIN,TOTAL 0.6 MG/DL (0.1-1.0); BUN/CREATININE RATIO 14; CARBON DIOXIDE 26 MMOL/L (21-32); CHLORIDE 105 MMOL/L (98-107); CREATININE SERUM 0.79 MG/DL (0.60-1.30); GFR ESTIMATED > 60; GLUCOSE 105 MG/DL (70-105); POTASSIUM 3.7 MMOL/L (3.6-5.0); SODIUM 140 MMOL/L (135-145); TOTAL PROTEIN 6.5 GM/DL (6.4-8.2)
[2019-07-16] MEDS: NS IV 1000 ML 1,000 ML IV SCH ×3 (06:32→23:00)
[2019-07-16] MEDS: ONDANSETRON 4 MG/2 ML (SDV) Z0FRAN IV PRN ×2 (06:36→17:49)
[2019-07-16 08:00] VITALS: BP 110/59
[2019-07-16] MEDS: LOSARTAN 100 MG (COZAAR) TABLET PO SCH (08:21)
--- NOTE | 2019-07-16 08:33 | NUR ---
SPOKE WITH THE PATIENT ABOUT HER MEDICATIONS. WE WENT OVER THE EXT MED HX AND SHE VERIFIED HOW SHE TAKES THEM. SHE FILLED TRAMADOL 50MG #168 FOR A 28 DAY SUPPLY - SHE STATES SHE ONLY TAKES 1 BID. SHE FILLED METHOCARBAMOL 500MG #90 FOR 30 DAYS- SHE STATES SHE ONLY TAKES 1 HS. SHE STATES SHE DOES NOT TAKE ANYTHING OTC.
[2019-07-16] MEDS ORDERED: DICL75TA2 PO (08:36)
[2019-07-16] MEDS ORDERED: LOSA100T57 PO (08:36)
[2019-07-16] MEDS ORDERED: TRAM50TA2 PO (08:36)
[2019-07-16] MEDS ORDERED: GBPN600T PO (08:36)
[2019-07-16] MEDS ORDERED: METH500T7 PO (08:36)
[2019-07-16] MEDS ORDERED: LEVO200T6 PO (08:36)
[2019-07-16] MEDS ORDERED: LEVO25TA5 PO (08:36)
[2019-07-16] MEDS ORDERED: DULO30CA49 PO (08:36)
[2019-07-16] MEDS: fentaNYL INJECTION 100 MCG/2 ML AMP IVP PRN (11:10)
[2019-07-16 12:00] VITALS: BP 118/59
--- NOTE | 2019-07-16 13:17 | NUR ---
Initial visit: The pt welcomed me to sit and visit. This is her first admission to the hospital "in many years" and it is difficult emotionally because her is not present to care for and encourage her: her unexpectedly of heart complications three years ago. She has an online support group of widows and widowers whom she describes as "even more supportive than my own friends." Her primary support is her sister, who has been hospitalized frequently in the last year. Her sister is visiting today. The pt said she was scheduled for gall bladder surgery today, but her UTI and kidney infection have delayed the procedure. She said "I am so glad you visited. I was feeling really down, but I am going to get through this."
--- NOTE | 2019-07-16 14:00 | Progress Note - Surgery ---
Subjective Time Seen by a Provider: 09:55 Subjective/Events-last exam Pt seen and examined, states she feels better than yesterday but still in pain and run down. Pt describes pain on right side, more in the Upper quadrant and some in lower quadrant plus suprapubically. She is very thirsty and hoping she can get something to drink. Review of Systems General: Chills, Fatigue, Malaise HEENT: Head Aches; No Visual Changes, No Sore Throat Pulmonary: No Dyspnea, No Cough Cardiovascular: No: Chest Pain, Palpitations Gastrointestinal: Nausea, Abdominal Pain; No: Vomiting Genitourinary: Dysuria, Frequency; No Hematuria Focused Exam Lactate Level 07/15/19 18:11: Lactic Acid Level 2.49*H 07/15/19 20:40: Lactic Acid Level 0.92 Objective Exam Vital Signs Date Time Temp Pulse Resp B/P (MAP) Pulse Ox O2 Delivery O2 Flow Rate FiO2 07/16/19 12:00 97.2 67 18 118/59 (78) 96 Nasal Cannula 2.00 07/16/19 08:00 98.1 78 20 110/59 (76) 93 Nasal Cannula 2.00 07/16/19 08:00 Room Air 07/16/19 07:00 72 07/16/19 03:35 98.3 71 20 124/59 (80) 94 Nasal Cannula 2.00 07/16/19 01:00 77 07/16/19 00:25 99.2 75 20 114/58 (76) 93 Nasal Cannula 2.00 07/15/19 22:35 70 07/15/19 21:30 Room Air 07/15/19 21:27 100.4 89 20 111/53 93 Nasal Cannula 2.00 07/15/19 21:27 100.4 89 20 111/53 (72) 93 Nasal Cannula 2.00 07/15/19 20:59 103.5 84 18 175/108 (130) 94 Nasal Cannula 2.00 07/15/19 18:00 102.6 94 16 175/108 (130) 99 Room Air I & O 07/16/19 07:00 Intake Total 2370 ml Output Total 900 ml Balance 1470 ml Capillary Refill : Less Than 3 Seconds General Appearance: WD/WN, Moderate Distress, Obese HEENT: PERRL/EOMI, Moist Mucous Membranes, Other (mucous membranes moist) Neck: Normal Inspection, Other (thyroidectomy scar) Respiratory: Lungs Clear, Normal Breath Sounds, No Accessory Muscle Use, No Respiratory Distress Cardiovascular: Regular Rate, Rhythm, No Edema, No Murmur, Normal Peripheral Pulses Gastrointestinal: soft, distended, guarding (voluntary), tenderness (RUQ, epigastric and suprapubic ) Extremity: Normal Inspection, No Pedal Edema, Slow Capillary Refill (proximally 5 seconds) Neurologic/Psychiatric: Alert, Oriented x3, Depressed Affect, Other (nursing staff reported she was extremely anxious during initial assessment) Results Lab Laboratory Tests 07/15/19 18:11: White Blood Count 9.6, Red Blood Count 5.29, Hemoglobin 14.7, Hematocrit 47, Mean Corpuscular Volume 89, Mean Corpuscular Hemoglobin 28, Mean Corpuscular Hemoglobin Concent 31L, Red Cell Distribution Width 13.9, Platelet Count 180, Mean Platelet Volume 11.6H, Neutrophils (%) (Auto) 84H, Lymphocytes (%) (Auto) 9L, Monocytes (%) (Auto) 7, Eosinophils (%) (Auto) 0, Basophils (%) (Auto) 0, Neutrophils # (Auto) 8.0H, Lymphocytes # (Auto) 0.8L, Monocytes # (Auto) 0.7, Eosinophils # (Auto) 0.0, Basophils # (Auto) 0.0, Prothrombin Time 14.3, INR Comment 1.1, Activated Partial Thromboplast Time 30, Sodium Level 139, Potassium Level 3.9, Chloride Level 100, Carbon Dioxide Level 26, Anion Gap 13, Blood Urea Nitrogen 13, Creatinine 0.83, Estimat Glomerular Filtration Rate > 60, BUN/Creatinine Ratio 16, Glucose Level 144H, Lactic Acid Level 2.49*H, Calcium Level 8.8, Corrected Calcium 8.9, Total Bilirubin 0.5, Aspartate Amino Transf (AST/SGOT) 17, Alanine Aminotransferase (ALT/SGPT) 23, Alkaline Phosphatase 107, Total Protein 7.6, Albumin 3.9, Lipase 9, Thyroid Stimulating Hormone (TSH) 0.18L, Free Thyroxine 1.54H 07/15/19 18:20: Urine Color YELLOW, Urine Clarity VERY CLOUDYH, Urine pH 6.5, Urine Specific [place] 1.010L, Urine Protein 2+H, Urine Glucose (UA) NEGATIVE, Urine Ketones NEGATIVE, Urine Nitrite NEGATIVE, Urine Bilirubin NEGATIVE, Urine Urobilinogen NORMAL, Urine Leukocyte Esterase 3+H, Urine RBC (Auto) 4+H, Urine RBC 0-2, Urine WBC >100H, Urine Squamous Epithelial Cells 5-10, Urine Crystals NONE, Urine Bacteria TRACE, Urine Casts NONE, Urine Mucus NEGATIVE, Urine Culture Indicated CULTURE PENDING 07/15/19 20:40: Lactic Acid Level 0.92 07/16/19 05:40: White Blood Count 10.6, Red Blood Count 4.70, Hemoglobin 13.0, Hematocrit 42, Mean Corpuscular Volume 90, Mean Corpuscular Hemoglobin 28, Mean Corpuscular Hemoglobin Concent 31L, Red Cell Distribution Width 14.2, Platelet Count 184, Mean Platelet Volume 11.2H, Neutrophils (%) (Auto) 68, Lymphocytes (%) (Auto) 19, Monocytes (%) (Auto) 13H, Eosinophils (%) (Auto) 0, Basophils (%) (Auto) 0, Neutrophils # (Auto) 7.2, Lymphocytes # (Auto) 2.0, Monocytes # (Auto) 1.3H, Eosinophils # (Auto) 0.0, Basophils # (Auto) 0.0, Sodium Level 140, Potassium Level 3.7, Chloride Level 105, Carbon Dioxide Level 26, Anion Gap 9, Blood Urea Nitrogen 11, Creatinine 0.79, Estimat Glomerular Filtration Rate > 60, BUN/Creatinine Ratio 14, Glucose Level 105, Calcium Level 8.0L, Corrected Calcium 8.5, Total Bilirubin 0.6, Aspartate Amino Transf (AST/SGOT) 11, Alanine Aminotransferase (ALT/SGPT) 22, Alkaline Phosphatase 77, Total Protein 6.5, Albumin 3.4 Microbiology 07/15/19 Blood Culture - Preliminary, Resulted Gram Negative Eliezer 07/15/19 Influenza Types A,B Antigen (RAQUEL) - Final, Complete 07/15/19 Urine Culture - Preliminary, Resulted Escherichia coli Assessment/Plan Assessment/Plan Assessment/Plan Bactermia UTI Cholelithiasis/Cholecystitis Will start clear liquids, continue IV ABX, pain control and anti-emetics as needed. Will have pt do IS 10x Q hour while awake and encourage ambulation. Plan is to possibly do Lap tonny tomorrow or Sunday, depending on how she is feeling and if the ABX have been on board long enough. Await final report on bacteria in blood. Clinical Quality Measures DVT/VTE Risk/Contraindication: Risk Factor Score Per Nursin RFS Level Per Nursing on Admit: 4+=Very High YAYO OLIVAS DO Jul 16, 2019 14:00
--- NOTE | 2019-07-16 15:23 | History & Physical-Hospitalist ---
[facility] 07/16/19 1523: History of Present Illness HPI/Chief Complaint C/C: fever and dysuria HPI: This is a 58 year old white female presenting to the ER with fever and dysuria. Fever and dysuria have been going on for sometime. She also has diffuse abdominal pain with localization to the RUQ. The patient is alert and oriented but in mild distress. Patient is currently in the chair and requires assistance moving to the bed. The patient also states diffuse body pain. Per the ER note the patient is currently under Dr. Salazar care for intermittent vaginal bleeding for several months. Date Seen 07/16/19 Time Seen by a Provider: 09:00 Attending Physician Daniel Valdez DO [facility] Referring Physician Date of Admission Jul 15, 2019 at 20:00 Home Medications & Allergies Home Medications Reviewed patient Home Medication Reconciliation performed by pharmacy medication reconciliations costume technician and/or nursing. Patients Allergies have been reviewed. Allergies Allergies Coded Allergies Iodinated Contrast- Oral and IV Dye (Verified Allergy, Unknown, 07/16/19) dexamethasone (Unverified Adverse Reaction, Unknown, 07/15/19) dexamethasone sod phosphate (Unverified Adverse Reaction, Unknown, 07/15/19) diphenhydramine HCl (Unverified Adverse Reaction, Unknown, 07/15/19) Patient denies food allergies and the only environmental allergy is elm trees. Past Nbjxfti-Avhvkb-Mskgfe Hx Past Med/Social Hx: Reviewed and Corrections made Patient Social History Employed/Student: retired (Medically Retired ) Alcohol Use: Rarely Uses Recreational Drug Use: No Smoking Status: Never a Smoker Recent Foreign Travel: No Contact w/other who traveled: No Recent Infectious Disease Expo: No Past Medical History Surgeries: Parathyroidectomy, Thyroidectomy Sinus Surgery Cardiac: Hypertension : No Reproductive: Yes (postmenopausal bleeding) Menopausal Musculoskeletal: Rheumatoid Arthritis, Chronic Back Pain Endocrine: Hypothyroidsim, Lupus Patient stated that she had had sinus surgery, thyroidectomy and has been dx with RA, lupus, spinal stenosis, herniated disc. Could not remember any other dx Family History Colon cancer 19 MOTHER Completed stroke 19 MOTHER Myocardial infarction 19 FATHER Heart Disease (father), Cancer (mother and father ), Stroke (mother) Mother (69 ): cancer unknown type Father ( at 60): Heart attack One brother: stroke three sisters: one dx with lupus Review of Systems Constitutional: weakness EENTM: no symptoms reported Respiratory: no symptoms reported, other (Only SOB when laying flat ) Cardiovascular: no symptoms reported Gastrointestinal: abdominal pain (RUQ) Genitourinary: dysuria, pain Musculoskeletal: joint pain Skin: no symptoms reported Physical Exam Physical Exam Vital Signs Vital Signs - First Documented 07/15/19 07/15/19 18:00 20:59 Temp 102.6 Pulse 94 Resp 16 B/P (MAP) 175/108 (130) Pulse Ox 99 O2 Delivery Room Air O2 Flow Rate 2.00 Capillary Refill : Less Than 3 Seconds Height, Weight, BMI Height: 5'6.00" Weight: 331lbs. 6.0oz. [id number]; 53.5 BMI Method:Stated Respiratory: Chest Non Tender, Normal Breath Sounds, No Accessory Muscle Use Cardiovascular: Regular Rate, Rhythm, No Edema, No JVD Gastrointestinal: No Pulsatile Mass, Tenderness, Other (Decreased bowel sounds patient is NPO ) Extremity: Normal Capillary Refill Neurologic/Psychiatric: Alert, Oriented x3, medical biller II-XII Norm as Tested Results Results/Procedures Labs Laboratory Tests 07/15/19 18:11 07/16/19 05:40 Patient resulted labs reviewed. Assessment/Plan Assessment and Plan Assessment: 1. UTI 2. Sepsis 3. Cholelithiasis 4. Thyroid dysfunction 5. RA 6. Lupus 7. Arthritis Plan: 1. Continue Abx regimen for infection 2. Monitor GI consult for the possibility of surgery 3. Continue to monitor vitals and labs (CMP, CBC with Diff, lactate, GGT) 4. DVT prophylaxis 5. Consult PT if patient is able 6. Continue current medication regimen 7. Pain management Clinical Quality Measures DVT/VTE Risk/Contraindication: Risk Factor Score Per Nursin RFS Level Per Nursing on Admit: 4+=Very High ZABRINA KELLY DO 07/16/192041: History of Present Illness HPI/Chief Complaint CC: UTI with altered mental status HPI: This is a 58yoWF who previously has a diagnosis of rheumatoid arthritis and fibromyalgia who presented with abdominal pain, nausea, and confusion found to have a UTI and yeast on UA. Gallbladder was found to be abnormal with gallstones and Dr. Valdez was consulted and will initiate a cholecystectomy once medically stable. At this current time pt is much improved, feels much better and abdominal pain is tolerable but I did order some Fentanyl for her comfort. She remains NPO for bowel rest. Source: patient Exam Limitations: clinical condition Past Cvlvcuq-Yjcpww-Qcgwxg Hx Past Med/Social Hx: Reviewed Nursing Past Med/Soc Hx, Reviewed and Corrections made Patient Social History Marrital Status: Employed/Student: retired (Medically Retired ) Past Medical History Cardiac: Hypertension Family History Colon cancer 19 MOTHER Completed stroke 19 MOTHER Myocardial infarction 19 FATHER Review of Systems Constitutional: see HPI, malaise, weakness Gastrointestinal: abdominal pain (RUQ), loss of appetite, nausea, vomiting Genitourinary: decreased output, dysuria, hematuria Physical Exam Physical Exam General Appearance: No Apparent Distress, WD/WN, Chronically ill, Obese Respiratory: Chest Non Tender, Lungs Clear, Normal Breath Sounds, No Accessory Muscle Use, No Respiratory Distress Cardiovascular: Regular Rate, Rhythm, No Edema, No Gallop, No JVD, No Murmur, Normal Peripheral Pulses Gastrointestinal: Tenderness Assessment/Plan Admission Diagnosis Assessment: Sepsis Gram negative bacteremia UTI RA Fibromyalgia Plan: Empiric abx Appreciate Dr Valdez Admission Status: Inpatient Order (span 2 midnights) Reason for Inpatient Admission: Sepsis with bacteremia Diagnosis/Problems Diagnosis/Problems (1) Bacteremia due to Gram-negative bacteria Status: Acute (2) Fibromyalgia Status: Chronic (3) Rheumatoid arthritis Qualifiers: Rheumatoid arthritis location: unspecified site Rheumatoid factor presence: unspecified presence Qualified Codes: M06.9 - Rheumatoid arthritis, unspecified (4) Sepsis Status: Acute Qualifiers: Sepsis type: sepsis due to unspecified organism Sepsis acute organ dysfunction status: unspecified Qualified Codes: A41.9 - Sepsis, unspecified organism (5) Urinary tract infection Status: Acute Qualifiers: Urinary tract infection type: site unspecified Hematuria presence: without hematuria Qualified Codes: N39.0 - Urinary tract infection, site not specified (6) Hypoxia Status: Acute (7) Acute generalized abdominal pain Status: Acute (8) Cholelithiasis Status: Acute Qualifiers: Cholelithiasis location: gallbladder Cholecystitis presence: without cho lecystitis Biliary obstruction: without biliary obstruction Qualified Codes: K80.20 - Calculus of gallbladder without cholecystitis without obstruction Supervisory-Addendum Brief Verification & Attestation Participated in pt care: history, MDM, physical Personally performed: exam, history, MDM, supervision of care Care discussed with: Medical Student Procedures: n/a Results interpretation: Verified all documentation Verification and Attestation of Medical Student E/M Service A medical student performed and documented this service in my presence. I reviewed and verified all information documented by the medical student and made modifications to such information, when appropriate. I personally performed the physical exam and medical decision making. Zabrina Kelly, Jul 16, 2019,20:42 [facility] Jul 16, 2019 15:23 ZABRINA KELLY DO Jul 16, 2019 20:42
[2019-07-16 16:09] VITALS: BP 121/62
[2019-07-16 19:26] VITALS: BP 116/60
[2019-07-16] MEDS: ACETAMINOPHEN 500 MG TAB (TYLENOL) PO PRN (21:37)
[2019-07-17] MEDS: PIPERACILLIN/TAZO 4.5 GM/NS 100 ML IV SCH ×4 (00:20→07:59)
[2019-07-17 00:33] VITALS: BP 114/56
[2019-07-17 04:29] VITALS: BP 96/51
[2019-07-17 05:28] LABS: BASOPHILS % (AUTO) 0 % (0-10); EOSINOPHILS % (AUTO) 0 % (0-10); HEMATOCRIT 40 % (35-52); HEMOGLOBIN 11.9 G/DL (11.5-16.0); LYMPHOCYTES # (AUTO) 1.9 X 10^3 (1.0-4.0); LYMPHOCYTES % (AUTO) 20 % (12-44); MEAN CORPUSCULAR HEMOGLOBIN 27 PG (25-34); MEAN CORPUSCULAR HGB CONC 30 G/DL (32-36); MEAN CORPUSCULAR VOLUME 91 FL (80-99); MEAN PLATELET VOLUME 11.4 FL (7.4-10.4); MONOCYTES # (AUTO) 1.1 X 10^3 (0.0-1.0); MONOCYTES % (AUTO) 12 % (0-12); NEUTROPHILS # (AUTO) 6.5 X 10^3 (1.8-7.8); NEUTROPHILS % (AUTO) 69 % (42-75); PLATELET COUNT 178 10^3/uL (130-400); RED CELL DISTRIBUTION WIDTH 14.5 % (10.0-14.5); WHITE BLOOD COUNT 9.6 10^3/uL (4.3-11.0)
[2019-07-17 05:45] LABS: ALANINE AMINOTRANSFERASE 17 U/L (0-55); ALBUMIN 3.1 GM/DL (3.2-4.5); ALKALINE PHOSPHATASE 73 U/L (40-136); BILIRUBIN,TOTAL 0.7 MG/DL (0.1-1.0); BUN/CREATININE RATIO 12; CARBON DIOXIDE 23 MMOL/L (21-32); CHLORIDE 105 MMOL/L (98-107); CREATININE SERUM 0.76 MG/DL (0.60-1.30); GFR ESTIMATED > 60; GLUCOSE 115 MG/DL (70-105); POTASSIUM 3.5 MMOL/L (3.6-5.0); SODIUM 139 MMOL/L (135-145); TOTAL PROTEIN 6.1 GM/DL (6.4-8.2)
[2019-07-17] MEDS: GABAPENTIN 600 MG (NEURONTIN) TAB PO PRN ×2 (06:11→20:03)
[2019-07-17] MEDS: LEVOTHYROXINE 75 MCG (LEVOTHROID) TABLET PO SCH (06:11)
[2019-07-17 08:00] VITALS: BP 122/56
[2019-07-17] MEDS: LOSARTAN 100 MG (COZAAR) TABLET PO SCH (08:00)
[2019-07-17] MEDS: fentaNYL INJECTION 100 MCG/2 ML AMP IVP PRN (08:09)
--- NOTE | 2019-07-17 10:13 | Progress Note - Surgery ---
GRACE JOSÉ,MED STUDENT 07/17/19 1013: Subjective Date Seen by a Provider: Jul 17, 2019 Time Seen by a Provider: 10:02 Subjective/Events-last exam Pt states her abdominal pain has improved but it is still present, 11/28 at this time. Complains of new onset back pain she localizes to her costovertebral area that comes and goes. States she is hungry and would like to go home and follow up her cholelithiasis as an outpatient. Review of Systems General: No Chills, No Night Sweats Cardiovascular: No: Chest Pain Gastrointestinal: Nausea, Abdominal Pain, Other (passing flatus); No: Vomiting, Diarrhea, Constipation Focused Exam Lactate Level 07/15/19 18:11: Lactic Acid Level 2.49*H 07/15/19 20:40: Lactic Acid Level 0.92 Objective Exam Vital Signs Date Time Temp Pulse Resp B/P (MAP) Pulse Ox O2 Delivery O2 Flow Rate FiO2 07/17/19 08:00 Room Air 07/17/19 08:00 98.4 64 18 122/56 (78) 94 Room Air 07/17/19 07:00 65 07/17/19 04:29 99.2 72 20 96/51 (66) 93 Room Air 07/17/19 01:00 74 07/17/19 00:33 98.2 73 20 114/56 (75) 91 Room Air 07/16/19 22:07 98.2 07/16/19 21:37 100.0 07/16/19 20:00 Room Air 07/16/19 19:26 98.9 74 20 116/60 (78) 96 Room Air 07/16/19 19:00 77 07/16/19 16:09 98.4 67 18 121/62 (81) 97 Room Air 07/16/19 13:00 67 07/16/19 12:00 97.2 67 18 118/59 (78) 96 Nasal Cannula 2.00 I & O 07/17/19 07:00 Intake Total 3370 ml Output Total 3 ml Balance 3367 ml Capillary Refill : Less Than 3 Seconds General Appearance: No Apparent Distress, WD/WN, Obese HEENT: PERRL/EOMI, Moist Mucous Membranes, Other (mucous membranes moist) Neck: Normal Inspection, Non Tender, Other (thyroidectomy scar) Respiratory: Chest Non Tender, No Accessory Muscle Use, No Respiratory Distress Cardiovascular: No Edema, Normal Peripheral Pulses Gastrointestinal: soft, distended (may be body habitus), guarding (voluntary), tenderness (RUQ) Extremity: Normal Capillary Refill Neurologic/Psychiatric: Alert, Oriented x3, 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 Skin: Normal Color, Warm/Dry Results Lab Laboratory Tests 07/17/19 05:04: White Blood Count 9.6, Red Blood Count 4.38, Hemoglobin 11.9, Hematocrit 40, Mean Corpuscular Volume 91, Mean Corpuscular Hemoglobin 27, Mean Corpuscular Hemoglobin Concent 30L, Red Cell Distribution Width 14.5, Platelet Count 178, Mean Platelet Volume 11.4H, Neutrophils (%) (Auto) 69, Lymphocytes (%) (Auto) 20, Monocytes (%) (Auto) 12, Eosinophils (%) (Auto) 0, Basophils (%) (Auto) 0, Neutrophils # (Auto) 6.5, Lymphocytes # (Auto) 1.9, Monocytes # (Auto) 1.1H, Eosinophils # (Auto) 0.0, Basophils # (Auto) 0.0, Sodium Level 139, Potassium Level 3.5L, Chloride Level 105, Carbon Dioxide Level 23, Anion Gap 11, Blood Urea Nitrogen 9, Creatinine 0.76, Estimat Glomerular Filtration Rate > 60, BUN/Creatinine Ratio 12, Glucose Level 115H, Calcium Level 8.0L, Corrected Calcium 8.7, Total Bilirubin 0.7, Aspartate Amino Transf (AST/SGOT) 14, Alanine Aminotransferase (ALT/SGPT) 17, Alkaline Phosphatase 73, Total Protein 6.1L, Albumin 3.1L Microbiology 07/15/19 Blood Culture - Preliminary, Resulted Escherichia coli 07/15/19 Influenza Types A,B Antigen (RAQUEL) - Final, Complete 07/15/19 Urine Culture - Preliminary, Resulted Escherichia coli Assessment/Plan Assessment/Plan Assessment/Plan Bactermia UTI Cholelithiasis/Cholecystitis Continue IV fluids, antibiotics, pain management for UTI and bacteremia. Advance diet to solid low-fat diet. If tolerating diet, from a surgical standpoint she is able to follow up her cholelithiasis as an outpatient, which she states she would like to do. Clinical Quality Measures DVT/VTE Risk/Contraindication: Risk Factor Score Per Nursin RFS Level Per Nursing on Admit: 4+=Very High DANIEL VALDEZ DO 07/17/19 1018: Subjective Time Seen by a Provider: 10:02 Supervisory-Addendum Brief Verification & Attestation Participated in pt care: history, MDM, physical Personally performed: exam, history, MDM Care discussed with: Medical Student Procedures: n/a Verification and Attestation of Medical Student E/M Service A medical student performed and documented this service in my presence. I reviewed and verified all information documented by the medical student and made modifications to such information, when appropriate. I personally performed the physical exam and medical decision making. Daniel Valdez, Jul 17, 2019,10:18 GRACE JOSÉ,MED STUDENT Jul 17, 2019 10:13 DANIEL VALDEZ DO Jul 17, 2019 10:18
[2019-07-17] MEDS: NS IV 1000 ML 1,000 ML IV SCH ×3 (10:55→18:16)
--- NOTE | 2019-07-17 11:22 | Progress Note - Hospitalist ---
[facility] 07/17/19 1122: Subjective HPI/CC On Admission Date Seen by Provider: Jul 17, 2019 Time Seen by Provider: 07:50 CC: UTI with altered mental status HPI: This is a 58yoWF who previously has a diagnosis of rheumatoid arthritis and fibromyalgia who presented with abdominal pain, nausea, and confusion found to have a UTI and yeast on UA. Gallbladder was found to be abnormal with gallstones and Dr. Valdez was consulted and will initiate a cholecystectomy once medically stable. At this current time pt is much improved, feels much better and abdominal pain is tolerable but I did order some Fentanyl for her comfort. She remains NPO for bowel rest. Subjective/Events-last exam Patient is alert and oriented with no acute distress. Stated she was having back pain but she seemed a lot better compared to the previous day. Patient stated she had a hard time sleeping Pt is still NPO Urinating and she states it is dark and still plummer a little. She has not had a bowel movement yet Patient has been ambulating in the room ROS: Pt denies chest pain, has SOB only when she lays down, denies F/C and occasionally she feels a little nausea Heart: HRRR Lungs: LCTAB Abdomen: Slight pain in RUQ but overall it seems improved from the day before. Bowel sounds diminished (pt has been NPO since arrival) Vitals: Stable Labs: Stable Plan: Continue to monitor GI consult for possible surgery in regards to cholelithiasis. Focused Exam Lactate Level 07/15/19 18:11: Lactic Acid Level 2.49*H 07/15/19 20:40: Lactic Acid Level 0.92 Respiratory: Chest Non Tender, Lungs Clear, Normal Breath Sounds, No Accessory Muscle Use, No Respiratory Distress Cardiovascular: Regular Rate, Rhythm, No JVD Peripheral Pulses: 2+ Radial Pulses (R), 2+ Radial Pulses (L) Skin: other (Lower extremities showed vascular insufficieny and possible edema ) Objective Exam Vital Signs Vital Signs Date Time Temp Pulse Resp B/P (MAP) Pulse Ox O2 Delivery O2 Flow Rate FiO2 07/17/19 08:00 Room Air 07/17/19 08:00 98.4 64 18 122/56 (78) 94 07/16/19 12:00 2.00 Capillary Refill : Less Than 3 Seconds General Appearance: No Apparent Distress, WD/WN Neck: Full Range of Motion Respiratory: Chest Non Tender, Lungs Clear, Normal Breath Sounds, No Accessory Muscle Use, No Respiratory Distress Cardiovascular: Regular Rate, Rhythm, No JVD Gastrointestinal: Other (Minor RUQ tenderness, which is improved, diminished bowel sounds (pt NPO) ) Neurologic/Psychiatric: Alert, Oriented x3 Results/Procedures Lab Laboratory Tests 07/17/19 05:04 Patient resulted labs reviewed. Assessment/Plan Assessment and Plan Assess & Plan/Chief Complaint Assessment: 1. UTI 2. Sepsis 3. Cholelithiasis 4. Thyroid dysfunction 5. RA 6. Lupus 7. Arthritis Plan: 1. Continue Abx regimen for infection 2. Monitor GI consult for the possibility of surgery 3. Continue to monitor vitals and labs (CMP, CBC with Diff, lactate, GGT) 4. DVT prophylaxis 5. Consult PT if patient is able 6. Continue current medication regimen 7. Pain management Clinical Quality Measures DVT/VTE Risk/Contraindication: Risk Factor Score Per Nursin RFS Level Per Nursing on Admit: 4+=Very High ZABRINA KELLY DO 07/17/192124: Subjective Subjective/Events-last exam Pt is in the shower. Pain still remains. Cholecystectomy planned for either today or tomorrow depending on blood culture results since there is bacteremia and likely E. Coli. Rocephin will be narrowing the spectrum, discontinue the Zosyn. Overall feeling much better. Labs are stable. Review of Systems General: Fatigue Objective Exam General Appearance: No Apparent Distress, WD/WN Respiratory: Chest Non Tender, Lungs Clear, Normal Breath Sounds, No Accessory Muscle Use, No Respiratory Distress Cardiovascular: Regular Rate, Rhythm, No Edema, No Gallop, No JVD, No Murmur, Normal Peripheral Pulses Neurologic/Psychiatric: Alert, Oriented x3, No Motor/Sensory Deficits, Normal Mood/Affect Assessment/Plan Assessment and Plan Assess & Plan/Chief Complaint Rocephin to narrow spectrum CLD Monitor closely Diagnosis/Problems Diagnosis/Problems (1) Bacteremia due to Gram-negative bacteria Status: Acute (2) Fibromyalgia Status: Chronic (3) Rheumatoid arthritis Qualifiers: Qualified Codes: M06.9 - Rheumatoid arthritis, unspecified (4) Acute generalized abdominal pain Status: Acute (5) Thyroid dysfunction Status: Acute (6) Sepsis Status: Acute Qualifiers: Qualified Codes: A41.9 - Sepsis, unspecified organism (7) Cholelithiasis Status: Acute Qualifiers: Qualified Codes: K80.20 - Calculus of gallbladder without cholecystitis without obstruction (8) Hypoxia Status: Acute (9) Urinary tract infection Status: Acute Qualifiers: Qualified Codes: N39.0 - Urinary tract infection, site not specified Supervisory-Addendum Brief Verification & Attestation Participated in pt care: history, MDM, physical Personally performed: exam, history, MDM, supervision of care Care discussed with: Medical Student Procedures: n/a Results interpretation: Verified all documentation Verification and Attestation of Medical Student E/M Service A medical student performed and documented this service in my presence. I reviewed and verified all information documented by the medical student and made modifications to such information, when appropriate. I personally performed the physical exam and medical decision making. Zabrina Kelly, Jul 17, 2019,21:25 [facility] Jul 17, 2019 11:22 ZABRINA KELLY DO Jul 17, 2019 21:25
[2019-07-17 12:00] VITALS: BP 103/51
[2019-07-17] MEDS: ACETAMINOPHEN 500 MG TAB (TYLENOL) PO PRN (13:16)
[2019-07-17 16:00] VITALS: BP 109/56
[2019-07-17] MEDS ORDERED: cefTRIAXone 1,000 MG/SWFI 10 ML IV PUSH IV SCH ×2 (16:00)
[2019-07-17 19:28] VITALS: BP 130/61
[2019-07-18 00:53] VITALS: BP 130/77
[2019-07-18] MEDS: NS IV 1000 ML 1,000 ML IV SCH (02:06)
[2019-07-18 04:58] VITALS: BP 125/74
[2019-07-18] MEDS: ACETAMINOPHEN 500 MG TAB (TYLENOL) PO PRN (05:01)
[2019-07-18] MEDS: LEVOTHYROXINE 75 MCG (LEVOTHROID) TABLET PO SCH (05:28)
[2019-07-18 05:56] LABS: BASOPHILS % (AUTO) 0 % (0-10); EOSINOPHILS % (AUTO) 0 % (0-10); HEMATOCRIT 39 % (35-52); LYMPHOCYTES % (AUTO) 19 % (12-44); MEAN CORPUSCULAR HEMOGLOBIN 28 PG (25-34); MEAN CORPUSCULAR HGB CONC 31 G/DL (32-36); MEAN CORPUSCULAR VOLUME 91 FL (80-99); MEAN PLATELET VOLUME 11.1 FL (7.4-10.4); MONOCYTES # (AUTO) 0.8 X 10^3 (0.0-1.0); MONOCYTES % (AUTO) 8 % (0-12); NEUTROPHILS # (AUTO) 7.8 X 10^3 (1.8-7.8); NEUTROPHILS % (AUTO) 73 % (42-75); PLATELET COUNT 190 10^3/uL (130-400); RED CELL DISTRIBUTION WIDTH 14.1 % (10.0-14.5); WHITE BLOOD COUNT 10.6 10^3/uL (4.3-11.0)
[2019-07-18 06:20] LABS: ALANINE AMINOTRANSFERASE 21 U/L (0-55); ALBUMIN 3.2 GM/DL (3.2-4.5); ALKALINE PHOSPHATASE 70 U/L (40-136); BILIRUBIN,TOTAL 0.4 MG/DL (0.1-1.0); BUN/CREATININE RATIO 13; CALCIUM 8.2 MG/DL (8.5-10.1); CARBON DIOXIDE 23 MMOL/L (21-32); CHLORIDE 108 MMOL/L (98-107); CREATININE SERUM 0.72 MG/DL (0.60-1.30); GFR ESTIMATED > 60; GLUCOSE 105 MG/DL (70-105); POTASSIUM 3.7 MMOL/L (3.6-5.0); SODIUM 142 MMOL/L (135-145); TOTAL PROTEIN 6.4 GM/DL (6.4-8.2)
[2019-07-18 08:00] VITALS: BP 120/75
[2019-07-18] MEDS: LOSARTAN 100 MG (COZAAR) TABLET PO SCH (08:49)
--- NOTE | 2019-07-18 09:18 | Progress Note - Surgery ---
Subjective Time Seen by a Provider: 08:44 Subjective/Events-last exam Pt seen and examined, states she is feeling better. Ate yesterday and this am with no problems. Pt states pain is almost gone. Review of Systems General: No Chills, No Night Sweats Pulmonary: No Dyspnea, No Cough Cardiovascular: No: Chest Pain, Palpitations Gastrointestinal: No: Nausea, Vomiting Focused Exam Lactate Level 07/15/19 18:11: Lactic Acid Level 2.49*H 07/15/19 20:40: Lactic Acid Level 0.92 Objective Exam Vital Signs Date Time Temp Pulse Resp B/P (MAP) Pulse Ox O2 Delivery O2 Flow Rate FiO2 07/18/19 07:00 55 07/18/19 05:40 99.5 07/18/19 05:01 100.4 07/18/19 04:58 100.4 72 18 125/74 (91) 93 Room Air 07/18/19 00:53 100.0 70 18 130/77 (94) 95 Room Air 07/18/19 00:49 71 07/17/19 20:00 Room Air 07/17/19 19:28 98.6 62 20 130/61 (84) 98 Room Air 07/17/19 19:00 64 07/17/19 16:00 97.8 62 20 109/56 (73) 97 Room Air 07/17/19 13:16 100.0 07/17/19 13:00 65 07/17/19 12:00 100.0 64 16 103/51 (68) 95 Room Air I & O 07/18/19 07:00 Intake Total 4440 ml Output Total 3 ml Balance 4437 ml Capillary Refill : Less Than 3 Seconds General Appearance: No Apparent Distress, WD/WN, Obese HEENT: PERRL/EOMI, Moist Mucous Membranes Neck: Full Range of Motion Respiratory: Chest Non Tender, Lungs Clear, Normal Breath Sounds, No Accessory Muscle Use, No Respiratory Distress Cardiovascular: Regular Rate, Rhythm, No Edema, No Murmur Peripheral Pulses: 2+ Radial Pulses (R), 2+ Radial Pulses (L) Gastrointestinal: soft, tenderness (RUQ very minimal) Extremity: No Calf Tenderness Neurologic/Psychiatric: Alert, Oriented x3, Normal Mood/Affect Skin: Normal Color, Warm/Dry Results Lab Laboratory Tests 07/18/19 05:45: White Blood Count 10.6, Red Blood Count 4.33L, Hemoglobin 12.0, Hematocrit 39, Mean Corpuscular Volume 91, Mean Corpuscular Hemoglobin 28, Mean Corpuscular Hemoglobin Concent 31L, Red Cell Distribution Width 14.1, Platelet Count 190, Mean Platelet Volume 11.1H, Neutrophils (%) (Auto) 73, Lymphocytes (%) (Auto) 19, Monocytes (%) (Auto) 8, Eosinophils (%) (Auto) 0, Basophils (%) (Auto) 0, Neutrophils # (Auto) 7.8, Lymphocytes # (Auto) 2.0, Monocytes # (Auto) 0.8, Eosinophils # (Auto) 0.0, Basophils # (Auto) 0.0, Sodium Level 142, Potassium Level 3.7, Chloride Level 108H, Carbon Dioxide Level 23, Anion Gap 11, Blood Urea Nitrogen 9, Creatinine 0.72, Estimat Glomerular Filtration Rate > 60, BUN/Creatinine Ratio 13, Glucose Level 105, Calcium Level 8.2L, Corrected Calcium 8.8, Total Bilirubin 0.4, Aspartate Amino Transf (AST/SGOT) 13, Alanine Aminotransferase (ALT/SGPT) 21, Alkaline Phosphatase 70, Total Protein 6.4, Albumin 3.2 Microbiology 07/15/19 Blood Culture - Preliminary, Resulted Escherichia coli 07/15/19 Influenza Types A,B Antigen (RAQUEL) - Final, Complete 07/15/19 Urine Culture - Preliminary, Resulted Escherichia coli Assessment/Plan Assessment/Plan Assessment/Plan Chronic Cholelithiasis/Cholecystitis Bacteremia - E. Coli UTI - E. coli Microbiology report and sensitivity is back; pt is on ABX that treats it correctly. Pt is tolerating diet. She would like to go home and have Cholecystectomy done as an outpt. I will have nurse make an appointment to see me in a week. She had no other questions. Clinical Quality Measures DVT/VTE Risk/Contraindication: Risk Factor Score Per Nursin RFS Level Per Nursing on Admit: 4+=Very High YAYO OLIVAS DO Jul 18, 2019 09:18
[2019-07-18] MEDS ORDERED: CEFD300C3 PO (11:08)
[2019-07-18] MEDS ORDERED: cefTRIAXone 2,000 MG/SWFI 20 ML IV PUSH IV SCH ×2 (12:00)
[2019-07-18] MEDS ORDERED: MEROPENEM 500 MG VIAL (MERREM) IV ONE (12:59)
--- NOTE | 2019-07-18 13:21 | NUR ---
CM/SS responded to consult for SS. Patient was interested in services for in home of housekeeping/ grocery shopping. Provided her information on [employer] and application process.
[2019-07-18 14:07] VITALS: BP 120/75
--- NOTE | 2019-07-18 14:15 | NUR ---
DISMISSED PER W/C, VERBALIZED UNDERSTANDING OF DISCHARGE INSTRUCTION, DENIES NAUSEA, IV DC, TELEMETRY DC
--- NOTE | 2019-07-18 15:25 | Discharge Summary ---
[facility] 07/18/19 1525: Diagnosis/Chief Complaint Date of Admission Jul 15, 2019 at 20:00 Date of Discharge Jul 18, 2019 at 14:00 Discharge Date: Jul 18, 2019 Admission Diagnosis Assessment: Sepsis Gram negative bacteremia UTI RA Fibromyalgia Plan: Empiric abx Appreciate Dr Valdez Primary Care Elly Domínguez Vice President Sales Discharge Diagnosis UTI, Sepsis, cholelithiasis (1) Bacteremia due to Gram-negative bacteria Status: Acute (2) Fibromyalgia Status: Chronic (3) Rheumatoid arthritis (4) Acute generalized abdominal pain Status: Acute (5) Thyroid dysfunction Status: Acute (6) Sepsis Status: Acute (7) Cholelithiasis Status: Acute (8) Hypoxia Status: Acute (9) Urinary tract infection Status: Acute Discharge Summary Discharge Physical Exam Allergies: Coded Allergies: Iodinated Contrast- Oral and IV Dye (Verified Allergy, Unknown, 07/16/19) dexamethasone (Unverified Adverse Reaction, Unknown, 07/15/19) dexamethasone sod phosphate (Unverified Adverse Reaction, Unknown, 07/15/19) diphenhydramine HCl (Unverified Adverse Reaction, Unknown, 07/15/19) Vitals & I&Os Vital Signs Date Time Temp Pulse Resp B/P (MAP) Pulse Ox O2 Delivery O2 Flow Rate FiO2 07/18/19 14:07 55 28 120/75 94 Room Air 2.00 07/18/19 08:00 97.2 General Appearance: No Apparent Distress, WD/WN, Obese Respiratory: Chest Non Tender, Lungs Clear, Normal Breath Sounds, No Accessory Muscle Use, No Respiratory Distress Cardiovascular: Regular Rate, Rhythm, No Edema, No JVD Gastrointestinal: Other (Bowel sounds have increasde and patients tenderness has decreased 2/10 on deep palpation of RUQ, no pain without palpation) Extremity: Normal Capillary Refill Skin: Normal Color, Warm/Dry Neurologic/Psychiatric: Alert, Oriented x3 Hospital Course Was the Problem List Reviewed?: Yes Gauri Sosa presented to [facility] with an UTI, sepsis and Abdominal pain. All of which had been going on for sometime according to the patient. The patient was under the care of Dr. Kelly Internal Medicine and Dr. Valdez General Surgery while at [facility]. The patient was worked up for the aforementioned dx and the patient was found with E.coli present in both urine and blood samples. The patient also had a gallstone that was not obstructing but of considerable size causing the abdominal pain. In addition to the presenting dx the patient has an extensive PMH. The patient had both an X-ray (No pertinent findings) and CT (please see imaging notes for full evaluation) while in the hospital. Additionally, the patient was put on an appropriated treatment regimen and brought back to good health. As of today the patient was alert, oriented and in no distress and minimal to zero pain.She continually expressed her desire to go home. Both vitals and labs are stable. The abdominal pain had decreased considerably. The patient is to continue her Abx regimen and her other medications outlined in her discharge papers. The patient is also advised to follow up with Dr. Valdez as an outpatient to monitor her gallbladder issues. The patient is being discharged today as stable and should follow all instruction outlined in her discharge papers. The aforementioned hospital course is not all inclusive and for a more detailed understanding of this patient please review hospital notes. Labs (last 24 hrs) Laboratory Tests 07/18/19 05:45: White Blood Count 10.6, Red Blood Count 4.33L, Hemoglobin 12.0, Hematocrit 39, Mean Corpuscular Volume 91, Mean Corpuscular Hemoglobin 28, Mean Corpuscular Hemoglobin Concent 31L, Red Cell Distribution Width 14.1, Platelet Count 190, Mean Platelet Volume 11.1H, Neutrophils (%) (Auto) 73, Lymphocytes (%) (Auto) 19, Monocytes (%) (Auto) 8, Eosinophils (%) (Auto) 0, Basophils (%) (Auto) 0, Neutrophils # (Auto) 7.8, Lymphocytes # (Auto) 2.0, Monocytes # (Auto) 0.8, Eosinophils # (Auto) 0.0, Basophils # (Auto) 0.0, Sodium Level 142, Potassium Level 3.7, Chloride Level 108H, Carbon Dioxide Level 23, Anion Gap 11, Blood Urea Nitrogen 9, Creatinine 0.72, Estimat Glomerular Filtration Rate > 60, BUN/Creatinine Ratio 13, Glucose Level 105, Calcium Level 8.2L, Corrected Calcium 8.8, Total Bilirubin 0.4, Aspartate Amino Transf (AST/SGOT) 13, Alanine Aminotransferase (ALT/SGPT) 21, Alkaline Phosphatase 70, Total Protein 6.4, Albumin 3.2 Microbiology 07/15/19 Blood Culture - Final, Complete Escherichia coli 07/15/19 Influenza Types A,B Antigen (RAQUEL) - Final, Complete 07/15/19 Urine Culture - Final, Complete Escherichia coli Patient resulted labs reviewed. Discharge Home Medications: Active Scripts Active Cefdinir 300 Mg Capsule 300 Mg PO BID Reported Duloxetine HCl 30 Mg Capsule.dr 30 Mg PO HS Gabapentin 600 Mg Tablet 600 Mg PO QID Losartan Potassium 100 Mg Tablet 100 Mg PO DAILY Diclofenac Sodium 75 Mg Tablet.dr 75 Mg PO BID Levothyroxine Sodium 200 Mcg Tablet 200 Mcg PO DAILY TAKES ALONG WITH 25MCG TABLET Levothyroxine Sodium 25 Mcg Tablet 25 Mcg PO DAILY TAKES ALONG WITH 200MCG TABLET Tramadol HCl 50 Mg Tablet 50 Mg PO BID Methocarbamol 500 Mg Tablet 500 Mg PO HS Instructions to patient/family Please see electronic discharge instructions given to patient. Clinical Quality Measures DVT/VTE Risk/Contraindication: Risk Factor Score Per Nursin RFS Level Per Nursing on Admit: 4+=Very High ZABRINA KELLY DO 07/18/19 1655: Diagnosis/Chief Complaint Discharge Diagnosis (1) Bacteremia due to Gram-negative bacteria Status: Acute (2) Fibromyalgia Status: Chronic (3) Rheumatoid arthritis (4) Cholelithiasis Status: Acute (5) Hypoxia Status: Acute (6) Acute generalized abdominal pain Status: Acute (7) Sepsis Status: Acute Discharge Summary Discharge Physical Exam Allergies: Coded Allergies: Iodinated Contrast- Oral and IV Dye (Verified Allergy, Unknown, 07/16/19) dexamethasone (Unverified Adverse Reaction, Unknown, 07/15/19) dexamethasone sod phosphate (Unverified Adverse Reaction, Unknown, 07/15/19) diphenhydramine HCl (Unverified Adverse Reaction, Unknown, 07/15/19) General Appearance: No Apparent Distress, WD/WN, Chronically ill, Obese Neurologic/Psychiatric: Alert, Oriented x3, No Motor/Sensory Deficits, Normal Mood/Affect Hospital Course Was the Problem List Reviewed?: Yes Verification and Attestation of Medical Student E/M Service A medical student performed and documented this service in my presence. I reviewed and verified all information documented by the medical student and made modifications to such information, when appropriate. I personally performed the physical exam and medical decision making. Zabrina Kelly, Jul 18, 2019,16:55 Discussion & Recommendations Discharge Planning: <30 minutes discharge planning Supervisory-Addendum Brief Verification & Attestation Participated in pt care: history, MDM, physical Personally performed: exam, history, MDM, supervision of care Care discussed with: Medical Student Procedures: n/a Results interpretation: Verified all documentation Verification and Attestation of Medical Student E/M Service A medical student performed and documented this service in my presence. I reviewed and verified all information documented by the medical student and made modifications to such information, when appropriate. I personally performed the physical exam and medical decision making. Zabrina Kelly, Jul 18, 2019,16:55 Problem Qualifiers (1) Rheumatoid arthritis: Rheumatoid arthritis location: unspecified site Rheumatoid factor presence: unspecified presence Qualified Codes: M06.9 - Rheumatoid arthritis, unsp ecified (2) Sepsis: Sepsis type: sepsis due to unspecified organism Sepsis acute organ dysfunction status: unspecified Qualified Codes: A41.9 - Sepsis, unspecified organism (3) Cholelithiasis: Cholelithiasis location: gallbladder Cholecystitis presence: without tonny cystitis Biliary obstruction: without biliary obstruction Qualified Codes: K80.20 - Calculus of gallbladder without cholecystitis without obstruction (4) Urinary tract infection: Urinary tract infection type: site unspecified Hematuria presence: without hematuria Qualified Codes: N39.0 - Urinary tract infection, site not specified [facility] Jul 18, 2019 15:25 ZABRINA KELLY DO Jul 18, 2019 16:55
== END 2019-07-18 14:00 | disposition home or self-care (01) | DRG 872 ==
LOC: EDUNIT# 17:56 → ER 17:57 → 4TH 20:00
PROVIDERS: ADMIT Internal Medicine; ATTEND Surgery
DX: A41.51 Sepsis due to Escherichia coli [E. coli] (principal); N39.0 Urinary tract infection, site not specified; B37.49 Other urogenital candidiasis; K80.10 Calculus of gallbladder with chronic cholecystitis without obstruction; Z68.43 Body mass index [BMI] 50.0-59.9, adult; I10 Essential (primary) hypertension; N95.0 Postmenopausal bleeding; E89.0 Postprocedural hypothyroidism; R09.02 Hypoxemia; E89.2 Postprocedural hypoparathyroidism; M06.9 Rheumatoid arthritis, unspecified; F41.9 Anxiety disorder, unspecified; R51 Headache; I73.00 Raynaud's syndrome without gangrene; M32.9 Systemic lupus erythematosus, unspecified; M48.00 Spinal stenosis, site unspecified; M19.91 Primary osteoarthritis, unspecified site; E07.9 Disorder of thyroid, unspecified; M79.7 Fibromyalgia
CPT/HCPCS: 36415; 71045; 74176; 80053; 81000; 83605; 83690; 84439; 84443; 85025; 85610; 85730; 87040; 87077; 87088; 87186; 87804; 94664; 96374; 96375

== ENCOUNTER 2019-07-24 18:41 | Emergency (ER) | payer MEDICARE ==
[~2019-07-24] VITALS: Ht 167.6 cm; Wt 150.1 kg
--- NOTE | 2019-07-24 19:20 | ED General ---
General Chief Complaint: Fever-Adult/Adol Stated Complaint: FEVER/NOT THINKING RIGHT Nursing Triage Note: PATIENT STATES THAT SHE WAS IN THE HOSPITAL LAST WEEK WITH SEPSIS. SHE STATES THAT HER DOCTOR TOLD HER SHE PROBBALY NEEDS ANOTHER ANTIBIOTIC. REPORTS FEVERS AND WEAKNESS RECENTLY. Nursing Sepsis Screen: No Definite Risk Source of Information: Patient Exam Limitations: No Limitations History of Present Illness Date Seen by Provider: Jul 24, 2019 Time Seen by Provider: 19:19 Initial Comments To ER per private vehicle with reports of weakness and fevers. She had outpatient labs drawn just prior to coming here, family convinced her to check into the ER for weakness. She was admitted recently for UTI and Escherichia coli bacteremia. She is currently on antibiotic, has 1 day left. Upon arrival to ER she is without tachycardia or hypotension, she is not febrile and she had a normal CBC outpatient just before getting here. Timing/Duration: 1-2 Days Severity: Moderate Associated Systoms: Weakness Allergies and Home Medications Allergies Coded Allergies: Iodinated Contrast- Oral and IV Dye (Verified Allergy, Unknown, 07/16/19) dexamethasone (Unverified Adverse Reaction, Unknown, 07/15/19) dexamethasone sod phosphate (Unverified Adverse Reaction, Unknown, 07/15/19) diphenhydramine HCl (Unverified Adverse Reaction, Unknown, 07/15/19) Home Medications Cefdinir 300 Mg Capsule, 300 MG PO BID Prescribed by: MARILYNN KELLY on 07/18/19 1108 Diclofenac Sodium 75 Mg Tablet.dr, 75 MG PO BID, (Reported) Duloxetine HCl 30 Mg Capsule.dr, 30 MG PO HS, (Reported) Gabapentin 600 Mg Tablet, 600 MG PO QID, (Reported) Levothyroxine Sodium 25 Mcg Tablet, 25 MCG PO DAILY, (Reported) TAKES ALONG WITH 200MCG TABLET Levothyroxine Sodium 200 Mcg Tablet, 200 MCG PO DAILY, (Reported) TAKES ALONG WITH 25MCG TABLET Losartan Potassium 100 Mg Tablet, 100 MG PO DAILY, (Reported) Methocarbamol 500 Mg Tablet, 500 MG PO HS, (Reported) Tramadol HCl 50 Mg Tablet, 50 MG PO BID, (Reported) Patient Home Medication List Home Medication List Reviewed: Yes Review of Systems Review of Systems Constitutional: see HPI EENTM: see HPI Respiratory: no symptoms reported Cardiovascular: no symptoms reported Genitourinary: no symptoms reported Musculoskeletal: see HPI Skin: no symptoms reported Psychiatric/Neurological: No Symptoms Reported Past Iqkbaid-Adrllx-Uvftue Hx Patient Social History Alcohol Use: Denies Use Recreational Drug Use: No Smoking Status: Never a Smoker 2nd Hand Smoke Exposure: No Recent Foreign Travel: No Contact w/Someone Who Travel: No Recent Infectious Disease Expo: No Past Medical History Surgeries: Yes (sinus surgery) Parathyroidectomy, Thyroidectomy Respiratory: No Cardiac: Yes Hypertension Neurological: No Reproductive Disorders: Yes (postmenopausal bleeding) [employer] History: Menopausal Genitourinary: No Gastrointestinal: No Musculoskeletal: Yes Rheumatoid Arthritis, Chronic Back Pain Endocrine: Yes Hypothyroidsim, Lupus HEENT: No Cancer: No Psychosocial: No Integumentary: No Family Medical History Colon cancer 19 MOTHER Completed stroke 19 MOTHER Myocardial infarction 19 FATHER Heart Disease, Cancer, Stroke Mother (69 ): cancer unknown type Father ( at 60): Heart attack One brother: stroke three sisters: one dx with lupus Physical Exam Vital Signs Vital Signs - First Documented 07/24/19 19:08 Temp 97.7 Pulse 56 Resp 18 B/P (MAP) 196/98 (130) Pulse Ox 98 Capillary Refill : Less Than 3 Seconds Height, Weight, BMI Height: 5'6.00" Weight: 331lbs. 0oz. [id number]; 53.5 BMI Method:Stated General Appearance: No Apparent Distress, WD/WN, Obese, Other (alert and oriented conversing with me appropriately) Eyes: Bilateral Eye Normal Inspection, Bilateral Eye PERRL, Bilateral Eye EOMI Neck: Full Range of Motion, Normal Inspection Respiratory: Normal Breath Sounds, No Accessory Muscle Use, No Respiratory Distress Cardiovascular: Regular Rate, Rhythm, Normal Peripheral Pulses Gastrointestinal: Normal Bowel Sounds, Non Tender, Soft Extremity: Normal Capillary Refill, Normal Inspection Neurologic/Psychiatric: Alert, Oriented x3 Skin: Normal Color, Warm/Dry Progress/Results/Core Measures Suspected Sepsis Recent Fever Within 48 Hours: No Infection Criteria Present: Suspected New Infection New/Unexplained Altered Menta: No Sepsis Screen: No Definite Risk SIRS Temperature:97.7 Pulse: 56 Respiratory Rate: 18 Blood Pressure 196 /98 Mean: 130 Laboratory Tests 07/24/19 18:29: Creatinine 0.71, Total Bilirubin 0.3 Results/Orders Lab Results Laboratory Tests Test 07/24/19 18:29 07/24/19 19:51 Range/Units Sodium Level 145 135-145 MMOL/L Potassium Level 3.5 L 3.6-5.0 MMOL/L Chloride Level 106 98-107 MMOL/L Carbon Dioxide Level 32 21-32 MMOL/L Anion Gap 7 5-14 MMOL/L Blood Urea Nitrogen 18 7-18 MG/DL Creatinine 0.71 0.60-1.30 MG/DL Estimat Glomerular Filtration Rate > 60 BUN/Creatinine Ratio 25 Glucose Level 107 H 70-105 MG/DL Calcium Level 9.0 8.5-10.1 MG/DL Corrected Calcium 9.3 8.5-10.1 MG/DL Total Bilirubin 0.3 0.1-1.0 MG/DL Aspartate Amino Transf (AST/SGOT) 18 5-34 U/L Alanine Aminotransferase (ALT/SGPT) 41 0-55 U/L Alkaline Phosphatase 91 40-136 U/L Total Protein 6.9 6.4-8.2 GM/DL Albumin 3.6 3.2-4.5 GM/DL Urine Color YELLOW Urine Clarity CLEAR Urine pH 6 5-9 Urine Specific [place] 1.015 L 1.016-1.022 Urine Protein NEGATIVE NEGATIVE Urine Glucose (UA) NEGATIVE NEGATIVE Urine Ketones NEGATIVE NEGATIVE Urine Nitrite NEGATIVE NEGATIVE Urine Bilirubin NEGATIVE NEGATIVE Urine Urobilinogen NORMAL NORMAL MG/DL Urine Leukocyte Esterase 2+ H NEGATIVE Urine RBC (Auto) NEGATIVE NEGATIVE Urine RBC 0-2 /HPF Urine WBC 5-10 H /HPF Urine Squamous Epithelial Cells 2-5 /HPF Urine Crystals NONE /LPF Urine Bacteria FEW H /HPF Urine Casts NONE /LPF Urine Mucus NEGATIVE /LPF Urine Culture Indicated NO My Orders Orders - LUCERO MARIN APRN Ua Culture If Indicated (07/24/19 19:17) Comprehensive Metabolic Panel (07/24/19 19:17) Vital Signs/I&O 07/24/19 19:08 Temp 97.7 Pulse 56 Resp 18 B/P (MAP) 196/98 (130) Pulse Ox 98 Capillary Refill : Less Than 3 Seconds Blood Pressure Mean: 130 Departure Impression Primary Impression: UTI (urinary tract infection) Additional Impression: Weakness Disposition: 01 HOME, SELF-CARE Condition: Stable Departure-Patient Inst. Decision time for Depature: 20:07 Referrals: [facility] (PCP) Primary Care Physician CARO GUSTAFSON APRN (Family) Primary Care Physician Patient Instructions: Urinary Tract Infection, Adult (DC), Generalized Weakness (DC) Scripts Cefdinir (Cefdinir) 300 Mg Capsule 300 MG PO BID, #6 CAP 0 Refills Prov: LUCERO MARIN APRN 07/24/19 LUCERO MARIN APRN Jul 24, 2019 19:20
[2019-07-24 19:41] LABS: ALANINE AMINOTRANSFERASE 41 U/L (0-55); ALBUMIN 3.6 GM/DL (3.2-4.5); ALKALINE PHOSPHATASE 91 U/L (40-136); BILIRUBIN,TOTAL 0.3 MG/DL (0.1-1.0); BUN/CREATININE RATIO 25; CARBON DIOXIDE 32 MMOL/L (21-32); CHLORIDE 106 MMOL/L (98-107); CREATININE SERUM 0.71 MG/DL (0.60-1.30); GFR ESTIMATED > 60; GLUCOSE 107 MG/DL (70-105); POTASSIUM 3.5 MMOL/L (3.6-5.0); SODIUM 145 MMOL/L (135-145); TOTAL PROTEIN 6.9 GM/DL (6.4-8.2)
[2019-07-24 19:57] LABS: BILIRUBIN,URINE NEGATIVE (NEGATIVE); CLARITY,URINE CLEAR; COLOR,URINE YELLOW; GLUCOSE, URINE (UA) NEGATIVE (NEGATIVE); KETONES,URINE NEGATIVE (NEGATIVE); LEUKOCYTE ESTERASE ,URINE 2+ (NEGATIVE); NITRITE,URINE NEGATIVE (NEGATIVE); PH,URINE 6 (5-9); PROTEIN,URINE NEGATIVE (NEGATIVE); UROBILINOGEN,URINE NORMAL (NORMAL)
[2019-07-24 20:05] LABS: BACTERIA,URINE FEW /HPF; RBC,URINE 0-2 /HPF
[2019-07-24] MEDS ORDERED: CEFD300C3 PO (20:08)
[2019-07-24 20:15] VITALS: BP 196/98
== END 2019-07-24 20:14 | disposition home or self-care (01) ==
LOC: EDUNIT# 18:41 → ER 18:42
DX: N39.0 Urinary tract infection, site not specified (principal); R53.1 Weakness; I10 Essential (primary) hypertension; M06.9 Rheumatoid arthritis, unspecified; E03.9 Hypothyroidism, unspecified; M32.9 Systemic lupus erythematosus, unspecified; Z91.041 Radiographic dye allergy status; Z88.8 Allergy status to other drugs, medicaments and biological substances; Z80.0 Family history of malignant neoplasm of digestive organs; Z82.49 Family history of ischemic heart disease and other diseases of the circulatory system
CPT/HCPCS: 36415; 80053; 81000; 99282

== ENCOUNTER → 2019-07-24 | Outpatient (CLI) | payer MEDICARE ==
[~2019-07-24] MED LIST changes: +CEFD300C3 PO; +DICL75TA2 PO; +DULO30CA49 PO; +LEVO200T6 PO; +LEVO25TA5 PO; +LOSA100T57 PO; +METH500T7 PO
[2019-07-24 18:35] LABS: BASOPHILS % (AUTO) 0 % (0-10); EOSINOPHILS # (AUTO) 0.1 10^3/uL (0.0-0.3); EOSINOPHILS % (AUTO) 1 % (0-10); HEMATOCRIT 41 % (35-52); HEMOGLOBIN 12.5 G/DL (11.5-16.0); LYMPHOCYTES # (AUTO) 2.8 X 10^3 (1.0-4.0); LYMPHOCYTES % (AUTO) 29 % (12-44); MEAN CORPUSCULAR HEMOGLOBIN 27 PG (25-34); MEAN CORPUSCULAR HGB CONC 31 G/DL (32-36); MEAN CORPUSCULAR VOLUME 89 FL (80-99); MEAN PLATELET VOLUME 10.3 FL (7.4-10.4); MONOCYTES # (AUTO) 0.5 X 10^3 (0.0-1.0); MONOCYTES % (AUTO) 5 % (0-12); NEUTROPHILS # (AUTO) 6.4 X 10^3 (1.8-7.8); NEUTROPHILS % (AUTO) 65 % (42-75); PLATELET COUNT 295 10^3/uL (130-400); RED CELL DISTRIBUTION WIDTH 14.1 % (10.0-14.5); WHITE BLOOD COUNT 9.8 10^3/uL (4.3-11.0)
== END ==
LOC: LAB 18:09
PROVIDERS: ATTEND Surgery
DX: R78.81 Bacteremia (principal)
CPT/HCPCS: 36415; 85025; 87040

== ENCOUNTER 2019-08-12 13:41 | Emergency (ER) | payer MEDICARE ==
[~2019-08-12] VITALS: Ht 167.7 cm; Wt 150.5 kg
[2019-08-12 14:12] LABS: BILIRUBIN,URINE NEGATIVE (NEGATIVE); CLARITY,URINE CLEAR; COLOR,URINE YELLOW; GLUCOSE, URINE (UA) NEGATIVE (NEGATIVE); KETONES,URINE 1+ (NEGATIVE); LEUKOCYTE ESTERASE ,URINE 2+ (NEGATIVE); NITRITE,URINE NEGATIVE (NEGATIVE); PH,URINE 7 (5-9); PROTEIN,URINE 1+ (NEGATIVE); UROBILINOGEN,URINE NORMAL (NORMAL)
[2019-08-12 14:23] LABS: BACTERIA,URINE TRACE /HPF; RBC,URINE RARE /HPF
[2019-08-12] MEDS ORDERED: NITR-65 PO (14:38)
--- NOTE | 2019-08-12 14:38 | ED GU-Female ---
General Chief Complaint: - Urinary Stated Complaint: LOWER BACK PAIN Nursing Triage Note: Pt reports possible kidney infection with "slimy/bloody" urine as well as pain with urination. Nursing Sepsis Screen: No Definite Risk Source: patient Exam Limitations: no limitations History of Present Illness Date Seen by Provider: Aug 12, 2019 Time Seen by Provider: 13:51 Initial Comments Patient presents to the emergency room with complaints of dysuria 3 weeks, temperature up to 100 at home, and urine with bloody and slimy consistency. She was admitted in late June with sepsis. She was seen again in the emergency room earlier this month with suspected urinary tract infection. She does not feel like she ever got over the infection. Chart was reviewed. She was prescribed Cefdinir during her last visit which she completed. For some reason a urine culture was not performed during that visit. Allergies and Home Medications Allergies Coded Allergies: Iodinated Contrast- Oral and IV Dye (Verified Allergy, Unknown, 07/16/19) dexamethasone (Unverified Adverse Reaction, Unknown, 07/15/19) dexamethasone sod phosphate (Unverified Adverse Reaction, Unknown, 07/15/19) diphenhydramine HCl (Unverified Adverse Reaction, Unknown, 07/15/19) Home Medications Cefdinir 300 Mg Capsule, 300 MG PO BID Prescribed by: MARILYNN KELLY on 07/18/191107 Cefdinir 300 Mg Capsule, 300 MG PO BID Prescribed by: LUCERO MARIN on 07/24/192007 Diclofenac Sodium 75 Mg Tablet.dr, 75 MG PO BID, (Reported) Duloxetine HCl 30 Mg Capsule.dr, 30 MG PO HS, (Reported) Gabapentin 600 Mg Tablet, 600 MG PO QID, (Reported) Levothyroxine Sodium 25 Mcg Tablet, 25 MCG PO DAILY, (Reported) TAKES ALONG WITH 200MCG TABLET Levothyroxine Sodium 200 Mcg Tablet, 200 MCG PO DAILY, (Reported) TAKES ALONG WITH 25MCG TABLET Losartan Potassium 100 Mg Tablet, 100 MG PO DAILY, (Reported) Methocarbamol 500 Mg Tablet, 500 MG PO HS, (Reported) Nitrofurantoin Monohyd/M-Cryst 100 Mg Capsule, 1 TAB PO BID Prescribed by: WILBER OSCAR on 08/12/19 1438 Tramadol HCl 50 Mg Tablet, 50 MG PO BID, (Reported) Patient Home Medication List Home Medication List Reviewed: Yes Review of Systems Review of Systems Constitutional: see HPI EENTM: no symptoms reported Respiratory: no symptoms reported Cardiovascular: no symptoms reported Gastrointestinal: no symptoms reported Genitourinary: see HPI : No Musculoskeletal: other (chronic problems with left lower back and sciatic pain) Skin: no symptoms reported Psychiatric/Neurological: No Symptoms Reported Endocrine: No Symptoms Reported Past Mklptsn-Jialeq-Yffogd Hx Patient Social History Alcohol Use: Denies Use Recreational Drug Use: No Smoking Status: Never a Smoker 2nd Hand Smoke Exposure: No Recent Foreign Travel: No Contact w/Someone Who Travel: No Recent Infectious Disease Expo: No Recent Hopitalizations: Yes Past Medical History Surgeries: Yes (sinus surgery) Parathyroidectomy, Thyroidectomy Respiratory: No Cardiac: Yes Hypertension Neurological: No Reproductive Disorders: Yes (postmenopausal bleeding) [employer] History: Menopausal Genitourinary: No Gastrointestinal: No Musculoskeletal: Yes Rheumatoid Arthritis, Chronic Back Pain Endocrine: Yes Hypothyroidsim, Lupus HEENT: No Cancer: No Psychosocial: No Integumentary: No Family Medical History Colon cancer 19 MOTHER Completed stroke 19 MOTHER Myocardial infarction 19 FATHER Heart Disease, Cancer, Stroke Mother (69 ): cancer unknown type Father ( at 60): Heart attack One brother: stroke three sisters: one dx with lupus Physical Exam Vital Signs Vital Signs - First Documented 08/12/19 13:49 Temp 36.7 Pulse 68 Resp 14 B/P (MAP) 192/91 (124) Pulse Ox 94 Capillary Refill : Less Than 3 Seconds Height, Weight, BMI Height: 5'6.00" Weight: 331lbs. 0oz. 150.182190rw; 53.00 BMI Method:Stated General Appearance: WD/WN, no apparent distress HEENT: normal ENT inspection Neck: normal inspection Cardiovascular: regular rate, rhythm, no edema, no murmur Respiratory: lungs clear, normal breath sounds, no respiratory distress Gastrointestinal: normal bowel sounds, soft, tenderness (suprapubic) Extremities: normal inspection, no pedal edema Neurologic/Psychiatric: vp packaging II-XII nml as tested, no motor/sensory deficits, alert, normal mood/affect, oriented x 3 Skin: normal color, warm/dry Progress/Results/Core Measures Suspected Sepsis Recent Fever Within 48 Hours: Yes Infection Criteria Present: Suspected New Infection New/Unexplained Altered Menta: No Sepsis Screen: No Definite Risk SIRS Temperature: Pulse: 68 Respiratory Rate: 14 Blood Pressure 192 /91 Mean: 124 Results/Orders Lab Results My Orders Vital Signs/I&O Capillary Refill : Less Than 3 Seconds Blood Pressure Mean: 124 Progress Note : Progress Note There was very subtle suggestion of urinary tract infection on UA but it was not very impressive. Nonetheless, she does have symptoms and will therefore be retreated. Departure Impression Primary Impression: Urinary tract infection Qualified Codes: N39.0 - Urinary tract infection, site not specified Disposition: HOME, SELF-CARE Condition: Stable Departure-Patient Inst. Decision time for Depature: 14:37 Referrals: [facility] (PCP) Primary Care Physician CARO GUSTAFSON APRN (Family) Primary Care Physician Patient Instructions: Urinary Tract Infection, Adult (DC) Add. Discharge Instructions: Complete your antibiotics as prescribed. This antibiotic may cause an orangeish or reddish color to your urine. Drink plenty of clear liquids and urinate often. Follow-up with your primary care provider later this week to review urine culture results. Return to the ER if you have worsening symptoms. All discharge instructions reviewed with patient and/or family. Voiced understan joe. Scripts Nitrofurantoin Monohyd/M-Cryst (Macrobid 100 mg Capsule) 100 Mg Capsule 1 TAB PO BID, #14 CAP Prov: WILBER RODRÍGUEZ MD 08/12/19 Copy Copies To 1: OUSMANE PRIEST JOSHUA T MD Aug 12, 2019 14:38
[2019-08-12 14:57] VITALS: BP 192/91
== END 2019-08-12 14:54 | disposition home or self-care (01) ==
LOC: EDUNIT# 13:41 → ER 13:42
DX: N39.0 Urinary tract infection, site not specified (principal); I10 Essential (primary) hypertension; M06.9 Rheumatoid arthritis, unspecified; E03.9 Hypothyroidism, unspecified; Z88.8 Allergy status to other drugs, medicaments and biological substances; Z91.041 Radiographic dye allergy status; Z87.39 Personal history of other diseases of the musculoskeletal system and connective tissue; Z80.0 Family history of malignant neoplasm of digestive organs; Z82.49 Family history of ischemic heart disease and other diseases of the circulatory system
CPT/HCPCS: 81000; 87077; 87088; 99282

== ENCOUNTER 2021-02-18 00:39 | Emergency (ER) | payer MEDICARE ==
[~2021-02-18] VITALS: Ht 167.7 cm; Wt 155.0 kg
[~2021-02-18 00:39] MED LIST changes: +METH-731 PO; -METH500T7 PO; +NITR-65 PO; +TRM50T PO
--- NOTE | 2021-02-18 01:12 | ED General ---
General Chief Complaint: - Urinary Stated Complaint: LEGS SWOLLEN FOR 6 MONTHS,BLOOD IN URINE,LEGS WEEP Nursing Triage Note: BLOOD IN URINE X2 DAYS, LEGS LEAKING X 1 MONTH. Nursing Sepsis Screen: No Definite Risk Source of Information: Patient Exam Limitations: No Limitations History of Present Illness Date Seen by Provider: Feb 18, 2021 Time Seen by Provider: 00:50 Initial Comments Patient is a 60-year-old female who presents to the emergency department today with a chief complaint of blood in her urine and swelling over the course of the last month. Patient states that she has an appointment at [facility] tomorrow at 4:00 in the afternoon. Patient states that she noticed the blood in her urine several times today and her sister became concerned and advised that she come to the emergency room for evaluation. Patient endorses dysuria, incontinence, urinary frequency and urgency. She states that she has had subjective fever. No nausea vomiting or diarrhea. No chest pain. The patient is slightly short of breath. She is morbidly obese. She has a little abdominal discomfort in the mid abdomen as well. Patient states that she has had so much swelling that she has a hard time fitting into her clothes and in her shoes. She is on Cozaar for a blood pressure medication and states that she takes it at 6 AM every morning. She takes 100 mg. Patient denies any other complaints of illness or injury. All other review of systems reviewed and negative except as stated above. Timing/Duration: Constant, Getting Worse Severity: Severe Allergies and Home Medications Allergies Coded Allergies: Iodinated Contrast- Oral and IV Dye (Verified Allergy, Unknown, 07/16/19) dexamethasone (Unverified Adverse Reaction, Unknown, 07/15/19) dexamethasone sod phosphate (Unverified Adverse Reaction, Unknown, 07/15/19) diphenhydramine HCl (Unverified Adverse Reaction, Unknown, 07/15/19) Home Medications Diclofenac Sodium 75 Mg Tablet.dr, 75 MG PO BID, (Reported) Duloxetine HCl 30 Mg Capsule.dr, 30 MG PO HS, (Reported) Gabapentin 600 Mg Tablet, 600 MG PO QID, (Reported) Levothyroxine Sodium 25 Mcg Tablet, 25 MCG PO DAILY, (Reported) TAKES ALONG WITH 200MCG TABLET Levothyroxine Sodium 200 Mcg Tablet, 200 MCG PO DAILY, (Reported) TAKES ALONG WITH 25MCG TABLET Losartan Potassium 100 Mg Tablet, 100 MG PO DAILY, (Reported) Nitrofurantoin Monohyd/M-Cryst 100 Mg Capsule, 1 TAB PO BID Prescribed by: ALVA LI on 02/18/21 0210 Patient Home Medication List Home Medication List Reviewed: Yes Review of Systems Review of Systems Constitutional: see HPI EENTM: no symptoms reported Respiratory: short of breath Cardiovascular: edema Gastrointestinal: abdominal pain, other (Mid abdominal pain and suprapubic pain) Genitourinary: dysuria, frequency, hematuria, hesitancy : No (Patient states that she is menopausal) Musculoskeletal: back pain (Chronic; patient takes diclofenac for chronic back pain and arthritis pain), muscle pain Skin: no symptoms reported All Other Systems Reviewed Negative Unless Noted: Yes Past Ivghmxn-Nocrne-Vezblk Hx Patient Social History Alcohol Use: Denies Use Smoking Status: Never a Smoker 2nd Hand Smoke Exposure: No Recent Infectious Disease Expo: No Recent Hopitalizations: No Immunizations Up To Date Tetanus Booster (TDap): Unknown Seasonal Allergies Seasonal Allergies: No Past Medical History Surgeries: Yes (sinus surgery) Parathyroidectomy, Thyroidectomy Respiratory: No Cardiac: Yes Hypertension Neurological: Yes Neuropathy : No Reproductive Disorders: Yes (postmenopausal bleeding) INPATIENT SERVICES RN History: Menopausal Genitourinary: Yes UTI-Chronic Gastrointestinal: No Musculoskeletal: Yes Arthritis, Rheumatoid Arthritis, Chronic Back Pain Endocrine: Yes Hypothyroidsim, Lupus HEENT: No Cancer: No Psychosocial: No Integumentary: No Family Medical History Colon cancer 19 MOTHER Completed stroke 19 MOTHER Myocardial infarction 19 FATHER Heart Disease, Cancer, Stroke Mother (69 ): cancer unknown type Father ( at 60): Heart attack One brother: stroke three sisters: one dx with lupus Physical Exam Vital Signs Vital Signs - First Documented 02/18/21 00:46 Temp 36.5 Pulse 112 Resp 18 B/P (MAP) 151/130 (137) Pulse Ox 95 O2 Delivery Room Air Capillary Refill : Less Than 3 Seconds Height, Weight, BMI Height: 5'6.00" Weight: 331lbs. 0oz. 150.271730ge; 55.00 BMI Method:Stated General Appearance: No Apparent Distress, WD/WN, Obese Eyes: Bilateral Eye Normal Inspection HEENT: PERRL/EOMI Neck: Normal Inspection Respiratory: Lungs Clear, Normal Breath Sounds, No Accessory Muscle Use, No Respiratory Distress Cardiovascular: Regular Rate, Rhythm (Distant heart sounds) Gastrointestinal: Soft, Tenderness (Mild mid abdominal tenderness) Extremity: Normal Inspection, Pedal Edema Neurologic/Psychiatric: Alert, Oriented x3, No Motor/Sensory Deficits, Normal Mood/Affect Skin: Warm/Dry Progress/Results/Core Measures Suspected Sepsis Recent Fever Within 48 Hours: No Infection Criteria Present: None New/Unexplained Altered Menta: No Sepsis Screen: No Definite Risk SIRS Temperature: Pulse: 112 Respiratory Rate: 18 Laboratory Tests 02/18/21 01:10: White Blood Count 11.2H Blood Pressure 151 /130 Mean: 137 Laboratory Tests 02/18/21 01:10: Creatinine 0.82, Platelet Count 198 Results/Orders Lab Results Laboratory Tests Test 02/18/21 01:10 Range/Units White Blood Count 11.2 H 4.3-11.0 10^3/uL Red Blood Count 5.30 H 3.80-5.11 10^6/uL Hemoglobin 15.0 11.5-16.0 g/dL Hematocrit 49 35-52 % Mean Corpuscular Volume 92 80-99 fL Mean Corpuscular Hemoglobin 28 25-34 pg Mean Corpuscular Hemoglobin Concent 31 L 32-36 g/dL Red Cell Distribution Width 14.6 H 10.0-14.5 % Platelet Count 198 130-400 10^3/uL Mean Platelet Volume 11.7 9.0-12.2 fL Immature Granulocyte % (Auto) 0 % Neutrophils (%) (Auto) 66 42-75 % Lymphocytes (%) (Auto) 27 12-44 % Monocytes (%) (Auto) 6 0-12 % Eosinophils (%) (Auto) 1 0-10 % Basophils (%) (Auto) 0 0-10 % Neutrophils # (Auto) 7.3 1.8-7.8 10^3/uL Lymphocytes # (Auto) 3.0 1.0-4.0 10^3/uL Monocytes # (Auto) 0.7 0.0-1.0 10^3/uL Eosinophils # (Auto) 0.1 0.0-0.3 10^3/uL Basophils # (Auto) 0.0 0.0-0.1 10^3/uL Immature Granulocyte # (Auto) 0.0 0.0-0.1 10^3/uL Urine Color YELLOW Urine Clarity CLEAR Urine pH 6.0 5-9 Urine Specific [place] 1.010 L 1.016-1.022 Urine Protein TRACE H NEGATIVE Urine Glucose (UA) NEGATIVE NEGATIVE Urine Ketones NEGATIVE NEGATIVE Urine Nitrite NEGATIVE NEGATIVE Urine Bilirubin NEGATIVE NEGATIVE Urine Urobilinogen 0.2 < = 1.0 MG/DL Urine Leukocyte Esterase TRACE H NEGATIVE Urine RBC (Auto) 3+ H NEGATIVE Urine RBC 5-10 H /HPF Urine WBC RARE /HPF Urine Squamous Epithelial Cells 5-10 /HPF Urine Crystals NONE /LPF Urine Bacteria NEGATIVE /HPF Urine Casts NONE /LPF Urine Mucus SMALL H /LPF Urine Culture Indicated NO Sodium Level 141 135-145 MMOL/L Potassium Level 3.7 3.6-5.0 MMOL/L Chloride Level 103 98-107 MMOL/L Carbon Dioxide Level 25 21-32 MMOL/L Anion Gap 13 5-14 MMOL/L Blood Urea Nitrogen 15 7-18 MG/DL Creatinine 0.82 0.60-1.30 MG/DL Estimat Glomerular Filtration Rate > 60 BUN/Creatinine Ratio 18 Glucose Level 98 70-105 MG/DL Calcium Level 9.1 8.5-10.1 MG/DL My Orders Orders - ALVA LI MD Cbc With Automated Diff (02/18/21 01:12) Basic Metabolic Panel (02/18/21 01:12) Ua Culture If Indicated (02/18/21 01:12) Urine Culture (02/18/21 02:11) Vital Signs/I&O 02/18/21 02/18/21 00:46 02:13 Temp 36.5 36.4 Pulse 112 85 Resp 18 20 B/P (MAP) 151/130 (137) 182/109 (137) Pulse Ox 95 93 O2 Delivery Room Air Room Air Capillary Refill : Less Than 3 Seconds Blood Pressure Mean: 137 Progress Note : Time: 02:07 Progress Note Patient's labs reviewed and all within normal limits except for a mild leukocytosis. Patient had a little bit of blood in her urine. She insists that she believes that the blood is not vaginal. Patient states again that she is menopausal. She does not appear to want to have a vaginal exam this evening. She does have a scheduled appointment with her primary care physician at 4:00 this afternoon. I recommended she follow-up with them. She is concerned about a bladder infection and with the burning and discomfort that she has had as well as calling the urine "slimy". I'm going to go ahead and put her on a little Macrobid for the next 5 days. I will order a urine culture. I do not believe at this time the patient has any clinical indications of sepsis. She is not hypotensive or febrile. She was slightly tachycardic. She is in fact h ypertensive and declines any medication here in the emergency department. She states her blood pressure is up because her back hurts. The patient also declines pain medications for her back. She states she will be "fine" when she gets home and into her own bed. Patient is strongly encouraged to keep her appointment this afternoon. She verbalizes understanding. All questions have been sought and answered. Patient is stable for discharge. Departure Impression Primary Impression: Cystitis Disposition: HOME, SELF-CARE Condition: Stable Departure-Patient Inst. Decision time for Depature: 02:09 Referrals: [facility] (PCP) Primary Care Physician RAYMOND LUBIN APRN (Family) Primary Care Physician Patient Instructions: Acute Cystitis (DC) Add. Discharge Instructions: You should get some [id number] Azo or Pyridium for bladder spasms. This will help the pain when you urinate. I have written you a prescription for Macrobid, an antibiotic for your urine. I have also cultured your urine today. We will contact you if the antibiotic does not match any bacteria that may grow from your urine. Return to the emergency room if you have any increased pain especially with fever, worsening burning with urination, or any other emergent concerning symptoms. Please keep your follow-up appointment with your primary care provider today at 4:00. Scripts Nitrofurantoin Monohyd/M-Cryst (Macrobid 100 mg Capsule) 100 Mg Capsule 1 TAB PO BID, #10 CAP Prov: ALVA LI MD 02/18/21 ALVA LI MD Feb 18, 2021 01:12
[2021-02-18 01:18] LABS: BILIRUBIN,URINE NEGATIVE (NEGATIVE); CLARITY,URINE CLEAR; COLOR,URINE YELLOW; GLUCOSE, URINE (UA) NEGATIVE (NEGATIVE); KETONES,URINE NEGATIVE (NEGATIVE); LEUKOCYTE ESTERASE ,URINE TRACE (NEGATIVE); NITRITE,URINE NEGATIVE (NEGATIVE); PROTEIN,URINE TRACE (NEGATIVE)
[2021-02-18 01:20] LABS: BASOPHILS % (AUTO) 0 % (0-10); EOSINOPHILS # (AUTO) 0.1 10^3/uL (0.0-0.3); EOSINOPHILS % (AUTO) 1 % (0-10); HEMATOCRIT 49 % (35-52); LYMPHOCYTES % (AUTO) 27 % (12-44); MEAN CORPUSCULAR HEMOGLOBIN 28 pg (25-34); MEAN CORPUSCULAR HGB CONC 31 g/dL (32-36); MEAN CORPUSCULAR VOLUME 92 fL (80-99); MEAN PLATELET VOLUME 11.7 fL (9.0-12.2); MONOCYTES # (AUTO) 0.7 10^3/uL (0.0-1.0); MONOCYTES % (AUTO) 6 % (0-12); NEUTROPHILS # (AUTO) 7.3 10^3/uL (1.8-7.8); NEUTROPHILS % (AUTO) 66 % (42-75); PLATELET COUNT 198 10^3/uL (130-400); WHITE BLOOD COUNT 11.2 10^3/uL (4.3-11.0)
[2021-02-18 01:30] LABS: CHLORIDE 103 MMOL/L (98-107); POTASSIUM 3.7 MMOL/L (3.6-5.0); SODIUM 141 MMOL/L (135-145)
[2021-02-18 01:31] LABS: CALCIUM 9.1 MG/DL (8.5-10.1)
[2021-02-18 01:32] LABS: GLUCOSE 98 MG/DL (70-105)
[2021-02-18 01:33] LABS: CARBON DIOXIDE 25 MMOL/L (21-32)
[2021-02-18 01:36] LABS: BUN/CREATININE RATIO 18; CREATININE SERUM 0.82 MG/DL (0.60-1.30); GFR ESTIMATED > 60
[2021-02-18 01:57] LABS: BACTERIA,URINE NEGATIVE /HPF; WBC,URINE RARE /HPF
[2021-02-18] MEDS ORDERED: NITR-65 PO (02:10)
[2021-02-18 02:13] VITALS: BP 182/109
== END 2021-02-18 02:19 | disposition home or self-care (01) ==
LOC: EDUNIT# 00:39 → ER 00:43
DX: N30.01 Acute cystitis with hematuria (principal); R60.9 Edema, unspecified; I10 Essential (primary) hypertension; G89.29 Other chronic pain; M54.9 Dorsalgia, unspecified; M06.9 Rheumatoid arthritis, unspecified; E89.0 Postprocedural hypothyroidism; Z79.1 Long term (current) use of non-steroidal anti-inflammatories (NSAID); Z79.890 Hormone replacement therapy; Z88.8 Allergy status to other drugs, medicaments and biological substances; Z91.041 Radiographic dye allergy status; Z80.0 Family history of malignant neoplasm of digestive organs
CPT/HCPCS: 36415; 80048; 81000; 85025; 87088

== ENCOUNTER 2021-04-04 02:01 | Emergency (ER) | payer MEDICARE ==
[~2021-04-04] VITALS: Ht 167.7 cm; Wt 158.8 kg
[2021-04-04] MEDS ORDERED: ONDANSETRON 4 MG/2 ML (SDV) Z0FRAN IVP ONE (02:15)
[2021-04-04] MEDS ORDERED: NS IV 1000 ML 1,000 ML IV SCH (02:15)
[2021-04-04] MEDS ORDERED: ASPIRIN 81 MG CHEW (CHILDREN'S ASA) PO ONE (02:15)
--- NOTE | 2021-04-04 02:20 | ED General ---
General Stated Complaint: A-FIB History of Present Illness Date Seen by Provider: April 04, 2021 Time Seen by Provider: 02:18 Initial Comments Patient presenting to the emergency department for evaluation of chest pain nausea and vomiting that has been going on for the past 36 hours that she said it started Sunday night after eating Syriac food. She says the emesis is nonbloody nonbilious and the pain is in the center of her chest and describes it as a pressure-like sensation. Chest pain comes and goes and can last for hours at a time and her current episode of chest pain has been lasting for at least 6 hours. She denies any worsening shortness of breath or any diaphoresis. She does have a history of atrial fibrillation and is on Cardizem in addition to a baby aspirin. She says she cannot take her Cardizem on Sunday morning due to nausea and vomiting so she called 911 and she was found to be in A. fib RVR with a rate of 150 and was given 25 mg Cardizem IV by EMS and now her heart rate is at approximately 100. She was given Zofran and she feels much better. She has a history of hypertension but no diabetes high cholesterol or smoking history. She denies any prior cardiac or stratification such as stress test or heart catheterization. Allergies and Home Medications Allergies Coded Allergies: Iodinated Contrast- Oral and IV Dye (Verified Allergy, Unknown, 07/16/19) dexamethasone (Unverified Adverse Reaction, Unknown, 07/15/19) dexamethasone sod phosphate (Unverified Adverse Reaction, Unknown, 07/15/19) diphenhydramine HCl (Unverified Adverse Reaction, Unknown, 07/15/19) Home Medications Diclofenac Sodium 75 Mg Tablet.dr, 75 MG PO BID, (Reported) Duloxetine HCl 30 Mg Capsule.dr, 30 MG PO HS, (Reported) Gabapentin 600 Mg Tablet, 600 MG PO QID, (Reported) Levothyroxine Sodium 25 Mcg Tablet, 25 MCG PO DAILY, (Reported) TAKES ALONG WITH 200MCG TABLET Levothyroxine Sodium 200 Mcg Tablet, 200 MCG PO DAILY, (Reported) TAKES ALONG WITH 25MCG TABLET Losartan Potassium 100 Mg Tablet, 100 MG PO DAILY, (Reported) Nitrofurantoin Monohyd/M-Cryst 100 Mg Capsule, 1 TAB PO BID Prescribed by: ALVA LI on 02/18/21 0210 Patient Home Medication List Home Medication List Reviewed: Yes Review of Systems Review of Systems Constitutional: no symptoms reported EENTM: no symptoms reported Respiratory: no symptoms reported Cardiovascular: chest pain Gastrointestinal: nausea, vomiting Genitourinary: no symptoms reported Musculoskeletal: no symptoms reported Skin: no symptoms reported Psychiatric/Neurological: No Symptoms Reported All Other Systems Reviewed Negative Unless Noted: Yes Past Vlzsjnk-Ognyun-Ggttes Hx Patient Social History 2nd Hand Smoke Exposure: No Recent Hopitalizations: No Immunizations Up To Date Tetanus Booster (TDap): Unknown Seasonal Allergies Seasonal Allergies: No Past Medical History Surgeries: Yes (sinus surgery) Parathyroidectomy, Thyroidectomy Respiratory: No Cardiac: Yes Hypertension Neurological: Yes Neuropathy Reproductive Disorders: Yes (postmenopausal bleeding) MERCHANDISER RETAIL REPRESENTATIVE History: Menopausal Genitourinary: Yes UTI-Chronic Gastrointestinal: No Musculoskeletal: Yes Arthritis, Rheumatoid Arthritis, Chronic Back Pain Endocrine: Yes Hypothyroidsim, Lupus HEENT: No Cancer: No Psychosocial: No Integumentary: No Family Medical History Colon cancer 19 MOTHER Completed stroke 19 MOTHER Myocardial infarction 19 FATHER Heart Disease, Cancer, Stroke Mother (69 ): cancer unknown type Father ( at 60): Heart attack One brother: stroke three sisters: one dx with lupus Physical Exam Vital Signs Vital Signs - First Documented 04/04/21 02:03 Temp 37.5 Pulse 88 Resp 19 B/P (MAP) 113/60 (77) Pulse Ox 95 O2 Delivery Nasal Cannula O2 Flow Rate 3.00 Capillary Refill : Height, Weight, BMI Height: 5'6.00" Weight: 331lbs. 0oz. 150.514696ea; 55.00 BMI Method:Stated General Appearance: No Apparent Distress, Obese HEENT: PERRL/EOMI Neck: Supple Respiratory: Lungs Clear, No Respiratory Distress Cardiovascular: Irregularly Irregular Gastrointestinal: Non Tender, Soft Back: Normal Inspection Extremity: Normal Capillary Refill Neurologic/Psychiatric: Alert, Oriented x3 Skin: Warm/Dry Progress/Results/Core Measures Suspected Sepsis SIRS Temperature: Pulse: Respiratory Rate: Laboratory Tests 04/04/21 02:15: White Blood Count 10.5 Blood Pressure / Mean: Laboratory Tests 04/04/21 02:15: Creatinine 0.67, INR Comment 1.1, Platelet Count 182, Total Bilirubin 0.9 Results/Orders Lab Results Laboratory Tests Test 04/04/21 02:15 Range/Units White Blood Count 10.5 4.3-11.0 10^3/uL Red Blood Count 5.46 4.35-5.85 10^6/uL Hemoglobin 15.4 11.5-16.0 G/DL Hematocrit 49 35-52 % Mean Corpuscular Volume 90 80-99 FL Mean Corpuscular Hemoglobin 28 25-34 PG Mean Corpuscular Hemoglobin Concent 32 32-36 G/DL Red Cell Distribution Width 15.5 H 10.0-14.5 % Platelet Count 182 130-400 10^3/uL Mean Platelet Volume 12.0 H 7.4-10.4 FL Immature Granulocyte % (Auto) 0 % Neutrophils (%) (Auto) 83 H 42-75 % Lymphocytes (%) (Auto) 12 12-44 % Monocytes (%) (Auto) 5 0-12 % Eosinophils (%) (Auto) 0 0-10 % Basophils (%) (Auto) 0 0-10 % Neutrophils # (Auto) 8.7 H 1.8-7.8 X 10^3 Lymphocytes # (Auto) 1.2 1.0-4.0 X 10^3 Monocytes # (Auto) 0.6 0.0-1.0 X 10^3 Eosinophils # (Auto) 0.0 0.0-0.3 10^3/uL Basophils # (Auto) 0.0 0.0-0.1 10^3/uL Immature Granulocyte # (Auto) 0.0 0.0-0.1 10^3/uL Percent Immature Platelet Fraction 6.6 0.0-7.6 % Prothrombin Time 14.6 12.2-14.7 SEC INR Comment 1.1 0.8-1.4 Activated Partial Thromboplast Time 27 24-35 SEC Sodium Level 137 135-145 MMOL/L Potassium Level 3.6 3.6-5.0 MMOL/L Chloride Level 98 98-107 MMOL/L Carbon Dioxide Level 27 21-32 MMOL/L Anion Gap 12 5-14 MMOL/L Blood Urea Nitrogen 17 7-18 MG/DL Creatinine 0.67 0.60-1.30 MG/DL Estimat Glomerular Filtration Rate > 60 BUN/Creatinine Ratio 25 Glucose Level 113 H 70-105 MG/DL Calcium Level 8.6 8.5-10.1 MG/DL Corrected Calcium 8.9 8.5-10.1 MG/DL Total Bilirubin 0.9 0.1-1.0 MG/DL Aspartate Amino Transf (AST/SGOT) 19 5-34 U/L Alanine Aminotransferase (ALT/SGPT) 25 0-55 U/L Alkaline Phosphatase 94 40-136 U/L Troponin I < 0.30 <0.30 NG/ML Pro-B-Type Natriuretic Peptide 1574.0 H <75.0 PG/ML Total Protein 7.1 6.4-8.2 GM/DL Albumin 3.6 3.2-4.5 GM/DL My Orders Orders - CORWIN CASANOVA DO Comprehensive Metabolic Panel (04/04/21 02:07) Cbc With Automated Diff (04/04/21 02:07) Iv/Invasive Line Insertion .IV start (04/04/21 02:07) Ekg Tracing (04/04/21 02:07) Ua Culture If Indicated (04/04/21 02:07) Troponin I Fs (04/04/21 02:07) Probnp Fs (04/04/21 02:07) Protime With Inr (04/04/21 02:07) Partial Thromboplastin Time (04/04/21 02:07) Lipase (04/04/21 02:07) Ondansetron Injection (Zofran Injectio (04/04/21 02:15) Ns Iv 1000 Ml (Sodium Chloride 0.9%) (04/04/21 02:15) Aspirin Chewable Tablet (Baby Aspirin Ch (04/04/21 02:15) Medications Given in ED Current Medications Medications Dose Ordered Sig/Aly Route Start Time Stop Time Status Last Admin Dose Admin Aspirin 324 mg ONCE ONCE PO 04/04/21 02:15 04/04/21 02:16 DC 04/04/21 02:22 324 MG Ondansetron HCl 4 mg ONCE ONCE IVP 04/04/21 02:15 04/04/21 02:16 DC 04/04/21 02:22 4 MG Vital Signs/I&O 04/04/21 04/04/21 02:03 02:34 Temp 37.5 Pulse 88 Resp 19 B/P (MAP) 113/60 (77) Pulse Ox 95 O2 Delivery Nasal Cannula Nasal Cannula O2 Flow Rate 3.00 3.0 Capillary Refill : Progress Note : Progress Note Patient has symptoms that are atypical for ACS in my opinion but will give Zofran IV fluids aspirin check labs and reassess. Patient says she wants less done if possible and wants avoid CXR. Patient has a negative EKG for STEMI however she does have flattened T waves in her lateral leads. She has a negative troponin more than 6 hours out from the onset of symptoms. I told her the incidental finding of her elevated BNP and t old her it could be from the atrial fibrillation with RVR or could be from CHF. I told her she would need further work-up such as echocardiogram and this is warranted given she has an oxygen saturation of 90% on room air. Patient has a heart score equal to 4 putting her at higher risk for adverse coronary event and recommended admission given her risk factors and presenting symptoms. Patient is refusing stating that she feels much better and would like to go home. I told patient that there is no signs of heart attack right now but discussed the limitations of the testing I can do here in the emergency room. I told her if she gets admitted the hospital she can get further test such as stress test and echocardiogram to further evaluate her symptoms and to risk stratify her chest pain. I told her that she may have life-threatening pathology and that if she does not get further work-up it will be a risk. Patient verbalized understanding and accepted the risks of and disability by not pursuing further work-up as an inpatient. Patient will be discharged with Zofran for nausea and vomiting told to take her aspirin daily in addition to Cardizem and to follow with primary care provider within the next 2 days for recheck and come back to the ED sooner with worsening pain shortness of breath or other general concerns. Patient aware and agreeable with plan and verbalized understanding the above instructions. Departure Impression Primary Impression: Chest pain Qualified Codes: R07.9 - Chest pain, unspecified Additional Impressions: Nausea & vomiting Atrial fibrillation with rapid ventricular response Elevated brain natriuretic peptide (BNP) level Hypoxia Disposition: 01 HOME, SELF-CARE Condition: Improved Departure-Patient Inst. Referrals: [facility] (PCP) Primary Care Physician RAYMOND LUBIN APRN (Family) Primary Care Physician Patient Instructions: Atrial Fibrillation (DC) Scripts Ondansetron (Ondansetron Odt) 4 Mg Tab.rapdis 4 MG PO Q6H PRN for NAUSEA/VOMITING, #8 TAB 0 Refills Prov: CORWIN CASANOVA DO 04/04/21 CORWIN CASANOVA DO April 04, 2021 02:19
[2021-04-04 02:29] LABS: BASOPHILS % (AUTO) 0 % (0-10); EOSINOPHILS % (AUTO) 0 % (0-10); HEMATOCRIT 49 % (35-52); HEMOGLOBIN 15.4 G/DL (11.5-16.0); LYMPHOCYTES # (AUTO) 1.2 X 10^3 (1.0-4.0); LYMPHOCYTES % (AUTO) 12 % (12-44); MEAN CORPUSCULAR HEMOGLOBIN 28 PG (25-34); MEAN CORPUSCULAR HGB CONC 32 G/DL (32-36); MEAN CORPUSCULAR VOLUME 90 FL (80-99); MONOCYTES # (AUTO) 0.6 X 10^3 (0.0-1.0); MONOCYTES % (AUTO) 5 % (0-12); NEUTROPHILS # (AUTO) 8.7 X 10^3 (1.8-7.8); NEUTROPHILS % (AUTO) 83 % (42-75); PLATELET COUNT 182 10^3/uL (130-400); WHITE BLOOD COUNT 10.5 10^3/uL (4.3-11.0)
[2021-04-04 02:37] LABS: INR 1.1 (0.8-1.4); PROTHROMBIN TIME PATIENT 14.6 SEC (12.2-14.7)
[2021-04-04 03:15] LABS: BUN/CREATININE RATIO 25; CARBON DIOXIDE 27 MMOL/L (21-32); CHLORIDE 98 MMOL/L (98-107); CREATININE SERUM 0.67 MG/DL (0.60-1.30); GFR ESTIMATED > 60; POTASSIUM 3.6 MMOL/L (3.6-5.0); SODIUM 137 MMOL/L (135-145)
[2021-04-04 03:16] LABS: ALANINE AMINOTRANSFERASE 25 U/L (0-55); ALBUMIN 3.6 GM/DL (3.2-4.5); ALKALINE PHOSPHATASE 94 U/L (40-136); BILIRUBIN,TOTAL 0.9 MG/DL (0.1-1.0); CALCIUM 8.6 MG/DL (8.5-10.1); GLUCOSE 113 MG/DL (70-105); TOTAL PROTEIN 7.1 GM/DL (6.4-8.2)
[2021-04-04] MEDS ORDERED: RX-ONDANSETRON 4 MG ODT (ZOFRAN) PPK #4 ONE (03:24)
[2021-04-04 03:28] LABS: LIPASE 11 U/L (8-78)
[2021-04-04] MEDS ORDERED: ONDA4TAB11 PO (03:29)
[2021-04-04 03:30] VITALS: BP 98/80
== END 2021-04-04 03:30 | disposition home or self-care (01) ==
LOC: EDUNIT# 02:01 → ER FS 02:04
DX: I48.91 Unspecified atrial fibrillation (principal); R11.2 Nausea with vomiting, unspecified; R09.02 Hypoxemia; R79.89 Other specified abnormal findings of blood chemistry; I10 Essential (primary) hypertension; E03.9 Hypothyroidism, unspecified; M06.9 Rheumatoid arthritis, unspecified; G89.29 Other chronic pain; M54.9 Dorsalgia, unspecified; G62.9 Polyneuropathy, unspecified; E66.9 Obesity, unspecified; Z68.43 Body mass index [BMI] 50.0-59.9, adult; Z91.041 Radiographic dye allergy status; Z88.8 Allergy status to other drugs, medicaments and biological substances; Z79.82 Long term (current) use of aspirin; Z79.890 Hormone replacement therapy; Z79.899 Other long term (current) drug therapy
CPT/HCPCS: 36415; 80053; 83690; 83880; 84484; 85025; 85610; 85730; 93005

== ENCOUNTER 2021-04-20 16:21 | Observation (INO) | payer MEDICARE ==
[~2021-04-20] VITALS: Ht 167.6 cm; Wt 163.0 kg
[~2021-04-20 16:21] MED LIST changes: +ONDA4TAB11 PO
--- NOTE | 2021-04-20 16:38 | ED GI ---
General Stated Complaint: PAIN IN STOMACH,VOMITTING,DIAREAH Source of Information: Patient Exam Limitations: No Limitations (RIVERA JASSO APRN) History of Present Illness Date Seen by Provider: Apr 20, 2021 Time Seen by Provider: 16:38 Initial Comments This is a well-appearing 60-year-old female who presents to the ER via POV with complaints of generalized abdominal pain, persistent nausea and vomiting. States that she has been having the symptoms on and off for the past month. She was recently diagnosed with a UTI and hospitalized at [facility] last week with same complaints. States that she was discharged home with plan to have gallbladder removed outpatient. However, she declined to follow up with surgeon. Denies fev er, chills, cough, shortness of breath, chest pain. (RIVERA JASSO APRN) Allergies and Home Medications Allergies Coded Allergies: Iodinated Contrast Media (Verified Allergy, Unknown, 07/16/19) dexamethasone (Unverified Adverse Reaction, Unknown, 07/15/19) dexamethasone sod phosphate (Unverified Adverse Reaction, Unknown, 07/15/19) diphenhydramine HCl (Unverified Adverse Reaction, Unknown, 07/15/19) Home Medications Diclofenac Sodium 75 Mg Tablet.dr, 75 MG PO BID, (Reported) Duloxetine HCl 30 Mg Capsule.dr, 30 MG PO HS, (Reported) Gabapentin 600 Mg Tablet, 600 MG PO QID, (Reported) Hydrocodone Bit/Acetaminophen 1 Ea Tab, 1 TAB PO Q6H Prescribed by: YAYO OLIVAS on 04/21/21 1986 Levothyroxine Sodium 25 Mcg Tablet, 25 MCG PO DAILY, (Reported) TAKES ALONG WITH 200MCG TABLET Levothyroxine Sodium 200 Mcg Tablet, 200 MCG PO DAILY, (Reported) TAKES ALONG WITH 25MCG TABLET Losartan Potassium 100 Mg Tablet, 100 MG PO DAILY, (Reported) Nitrofurantoin Monohyd/M-Cryst 100 Mg Capsule, 1 TAB PO BID Prescribed by: ALVA LI on 02/18/21 0210 Ondansetron 4 Mg Tab.rapdis, 4 MG PO Q6H PRN for NAUSEA/VOMITING Prescribed by: CORWIN CASANOVA on 04/04/21 0329 Patient Home Medication List Home Medication List Reviewed: Yes (RIVERA JASSO APRN) Review of Systems Review of Systems Constitutional: see HPI EENTM: No Symptoms Reported Respiratory: No Symptoms Reported Cardiovascular: No Symptoms Reported Gastrointestinal: See HPI Genitourinary: See HPI Musculoskeletal: no symptoms reported Skin: no symptoms reported Psychiatric/Neurological: No Symptoms Reported Endocrine: No Symptoms Reported Hematologic/Lymphatic: No Symptoms Reported (RIVERA JASSO APRN) Past Wtyonyd-Oddrcc-Hwfejk Hx Patient Social History 2nd Hand Smoke Exposure: No Recent Hopitalizations: No (RIVERA JASSO APRN) Immunizations Up To Date Tetanus Booster (TDap): Unknown (RIVERA JASSO APRN) Seasonal Allergies Seasonal Allergies: No (RIVERA JASSO APRN) Past Medical History Surgeries: Yes (sinus surgery) Parathyroidectomy, Thyroidectomy Respiratory: No Cardiac: Yes Atrial Fibrillation, Hypertension Neurological: Yes Neuropathy Reproductive Disorders: Yes (postmenopausal bleeding) NETWORK SUPPORT MANAGER History: Menopausal Genitourinary: Yes UTI-Chronic Gastrointestinal: No Musculoskeletal: Yes Arthritis, Rheumatoid Arthritis, Chronic Back Pain Endocrine: Yes Hypothyroidsim, Lupus HEENT: No Cancer: No Psychosocial: No Integumentary: No (RIVERA JASSO APRN) Family Medical History Colon cancer 19 MOTHER Completed stroke 19 MOTHER Myocardial infarction 19 FATHER Heart Disease, Cancer, Stroke Mother (69 ): cancer unknown type Father ( at 60): Heart attack One brother: stroke three sisters: one dx with lupus (RIVERA JASSO APRN) Physical Exam Vital Signs Vital Signs - First Documented 04/20/21 16:50 Temp 35.5 Pulse 90 Resp 24 B/P (MAP) 139/100 (113) Pulse Ox 90 O2 Delivery Room Air (WILBER RODRÍGUEZ MD) Vital Signs Capillary Refill : (RIVERA JASSO APRN) Height/Weight/BMI Height: 5'6.00" Weight: 331lbs. 0oz. 150.264945jo; 56.00 BMI Method:Stated General Appearance: WD/WN, no apparent distress HEENT: PERRL/EOMI, normal ENT inspection, pharynx normal Neck: non-tender, full range of motion, normal inspection Respiratory: lungs clear, normal breath sounds, no respiratory distress Cardiovascular: normal peripheral pulses, irregularly irregular Gastrointestinal: normal bowel sounds, soft; No distended; guarding; No rebound; tenderness (generalized ) Extremities: normal inspection, no calf tenderness Neurologic/Psychiatric: no motor/sensory deficits, alert, normal mood/affect, oriented x 3 Skin: normal color, warm/dry (RIVERA JASSO APRN) Focused Exam Lactate Level 04/20/21 17:55: Lactic Acid Level 1.59 (WILBER RODRÍGUEZ MD) Lactic Acid Level Laboratory Tests Test 04/20/21 17:55 Lactic Acid Level 1.59 MMOL/L (0.50-2.00) (WILBER RODRÍGUEZ MD) Progress/Results/Core Measures Results/Orders Lab Results Laboratory Tests Test 04/20/21 17:00 04/20/21 17:15 04/20/21 17:55 Range/Units Urine Color ORANGE H Urine Clarity SL CLOUDY Urine pH 5.5 5-9 Urine Specific [place] >=1.030 1.016-1.022 Urine Protein 1+ H NEGATIVE Urine Glucose (UA) NEGATIVE NEGATIVE Urine Ketones NEGATIVE NEGATIVE Urine Nitrite POSITIVE H NEGATIVE Urine Bilirubin NEGATIVE NEGATIVE Urine Urobilinogen 1.0 < = 1.0 MG/DL Urine Leukocyte Esterase 1+ H NEGATIVE Urine RBC (Auto) 3+ H NEGATIVE Urine RBC 10-25 H /HPF Urine WBC 10-25 H /HPF Urine Squamous Epithelial Cells 2-5 /HPF Urine Crystals NONE /LPF Urine Bacteria TRACE /HPF Urine Casts NONE /LPF Urine Mucus NEGATIVE /LPF Urine Culture Indicated YES White Blood Count 12.6 H 4.3-11.0 10^3/uL Red Blood Count 5.28 H 3.80-5.11 10^6/uL Hemoglobin 14.8 11.5-16.0 g/dL Hematocrit 50 35-52 % Mean Corpuscular Volume 94 80-99 fL Mean Corpuscular Hemoglobin 28 25-34 pg Mean Corpuscular Hemoglobin Concent 30 L 32-36 g/dL Red Cell Distribution Width 14.9 H 10.0-14.5 % Platelet Count 222 130-400 10^3/uL Mean Platelet Volume 12.2 9.0-12.2 fL Immature Granulocyte % (Auto) 0 % Neutrophils (%) (Auto) 78 H 42-75 % Lymphocytes (%) (Auto) 14 12-44 % Monocytes (%) (Auto) 6 0-12 % Eosinophils (%) (Auto) 1 0-10 % Basophils (%) (Auto) 1 0-10 % Neutrophils # (Auto) 9.9 H 1.8-7.8 10^3/uL Lymphocytes # (Auto) 1.8 1.0-4.0 10^3/uL Monocytes # (Auto) 0.8 0.0-1.0 10^3/uL Eosinophils # (Auto) 0.1 0.0-0.3 10^3/uL Basophils # (Auto) 0.1 0.0-0.1 10^3/uL Immature Granulocyte # (Auto) 0.0 0.0-0.1 10^3/uL Sodium Level 142 135-145 MMOL/L Potassium Level 4.3 3.6-5.0 MMOL/L Chloride Level 101 98-107 MMOL/L Carbon Dioxide Level 29 21-32 MMOL/L Anion Gap 12 5-14 MMOL/L Blood Urea Nitrogen 26 H 7-18 MG/DL Creatinine 1.94 H 0.60-1.30 MG/DL Estimat Glomerular Filtration Rate 27 BUN/Creatinine Ratio 13 Glucose Level 102 70-105 MG/DL Calcium Level 9.3 8.5-10.1 MG/DL Corrected Calcium 9.5 8.5-10.1 MG/DL Total Bilirubin 0.6 0.1-1.0 MG/DL Aspartate Amino Transf (AST/SGOT) 17 5-34 U/L Alanine Aminotransferase (ALT/SGPT) 19 0-55 U/L Alkaline Phosphatase 88 40-136 U/L Total Protein 7.3 6.4-8.2 GM/DL Albumin 3.7 3.2-4.5 GM/DL Lactic Acid Level 1.59 0.50-2.00 MMOL/L (WILBER RODRÍGUEZ MD) Micro Results Microbiology 04/20/21 Urine Culture - Final, Complete >=3 Gram Positive Isolates (WILBER RODRÍGUEZ MD) Vital Signs/I&O 04/20/21 16:50 Temp 35.5 Pulse 90 Resp 24 B/P (MAP) 139/100 (113) Pulse Ox 90 O2 Delivery Room Air (WILBER RODRÍGUEZ MD) Progress Progress Note : Progress Note I was physically present in the emergency department as attending physician during the care of this patient, but I was not directly involved with this patient's care. (WILBER RODRÍGUEZ MD) Diagnostic Imaging Diagonstic Imaging: CT Plain Films/CT/US/NM/MRI: abdomen, pelvis Comments [facility] [place], [place] NAME: ENMANUEL ANAYA [facility] REC#: [id number] PT STATUS: REG ER : 1960 PHYSICIAN: RIVERA JASSO SURGICAL BRACE MAKER ADMIT DATE: 04/20/21/ER Signed Date of Exam:04/20/21 CT ABDOMEN/PELVIS WO PROCEDURE: CT abdomen and pelvis without contrast. TECHNIQUE: Multiple contiguous axial images were obtained through the abdomen and pelvis without the use of intravenous contrast. Auto Exposure Controls were utilized during the CT exam to meet ALARA standards for radiation dose reduction. INDICATION: Pain, nausea, vomiting, diarrhea. COMPARED: 07/15/2019 FINDINGS: There are gallstones present without bile duct dilatation. No CT findings of acute cholecystitis. Spleen, adrenals and pancreas appeared nonacute. There is no hydroureteronephrosis. No opaque urinary tract calculi. There is noninflamed diverticulosis of the sigmoid. Some subcutaneous edema along the right greater than left flank. No fluid collection. No pneumatosis or free air. Lung bases and bony structures nonacute. The aorta is nonaneurysmal. Uterus and adnexa unremarkable. Urinary bladder nearly empty and appearing nonacute. There are no findings of appendicitis. IMPRESSION: Unobstructed and nonacute bowel, noninflamed diverticulosis, gallstones without bile duct dilatation, unobstructed urinary tracts. Dictated by: Dictated on workstation # [id number] Dict: 04/20/21 1832 Trans: 04/20/211846 [facility] [id number] Interpreted by: SIS FELIX Electronically signed by: SIS FELIX 04/20/211846 Reviewed: Reviewed by Me (RIVERA JASSO SURGICAL BRACE MAKER) Departure Communication (Admissions) Time/Spoke to Admitting Phy: 18:[address] Pham, accepted patient admission. Time/Spoke to Consulting Phy: 19:[address] Olivas. (RIVERA JASSO SURGICAL BRACE MAKER) Impression Primary Impression: Cholelithiases Additional Impressions: UTI (urinary tract infection) Acute kidney injury Disposition: ADMITTED INPATIENT Condition: Stable Admissions Decision to Admit Reason: Admit from ER (General) Decision to Admit/Date: Apr 20, 2021 Time/Decision to Admit Time: 19:06 (RIVERA JASSO APRN) Departure-Patient Inst. Referrals: [facility] (PCP) Primary Care Physician RAYMOND LUBIN APRN (Family) Primary Care Physician Scripts Hydrocodone Bit/Acetaminophen (HYDROcodone/APAP 10/325 TABLET) 1 Ea Tab 1 TAB PO Q6H for PAIN-MODERATE MDD 5, #20 TAB 0 Refills Prov: YAYO OLIVAS DO 04/21/21 Copy Copies To 1: [facility] Copies To 2: YAYO OLIVAS STORMY D APRN Apr 20, 2021 16:38 WILBER RODRÍGUEZ MD Apr 23, 2021 07:04
[2021-04-20] MEDS ORDERED: NS IV 1000 ML 1,000 ML IV ONE (17:00)
[2021-04-20] MEDS ORDERED: ONDANSETRON 4 MG/2 ML (SDV) Z0FRAN IVP ONE (17:00)
[2021-04-20 17:16] LABS: BILIRUBIN,URINE NEGATIVE (NEGATIVE); GLUCOSE, URINE (UA) NEGATIVE (NEGATIVE); KETONES,URINE NEGATIVE (NEGATIVE); LEUKOCYTE ESTERASE ,URINE 1+ (NEGATIVE); NITRITE,URINE POSITIVE (NEGATIVE); PH,URINE 5.5 (5-9); PROTEIN,URINE 1+ (NEGATIVE)
[2021-04-20 17:27] LABS: BASOPHILS # (AUTO) 0.1 10^3/uL (0.0-0.1); BASOPHILS % (AUTO) 1 % (0-10); EOSINOPHILS # (AUTO) 0.1 10^3/uL (0.0-0.3); EOSINOPHILS % (AUTO) 1 % (0-10); HEMATOCRIT 50 % (35-52); HEMOGLOBIN 14.8 g/dL (11.5-16.0); LYMPHOCYTES # (AUTO) 1.8 10^3/uL (1.0-4.0); LYMPHOCYTES % (AUTO) 14 % (12-44); MEAN CORPUSCULAR HEMOGLOBIN 28 pg (25-34); MEAN CORPUSCULAR HGB CONC 30 g/dL (32-36); MEAN CORPUSCULAR VOLUME 94 fL (80-99); MEAN PLATELET VOLUME 12.2 fL (9.0-12.2); MONOCYTES # (AUTO) 0.8 10^3/uL (0.0-1.0); MONOCYTES % (AUTO) 6 % (0-12); NEUTROPHILS # (AUTO) 9.9 10^3/uL (1.8-7.8); NEUTROPHILS % (AUTO) 78 % (42-75); PLATELET COUNT 222 10^3/uL (130-400); WHITE BLOOD COUNT 12.6 10^3/uL (4.3-11.0)
[2021-04-20 17:29] LABS: CLARITY,URINE SL CLOUDY; COLOR,URINE ORANGE
[2021-04-20 17:32] LABS: BACTERIA,URINE TRACE /HPF
[2021-04-20 17:47] LABS: ALBUMIN 3.7 GM/DL (3.2-4.5)
[2021-04-20 17:48] LABS: POTASSIUM 4.3 MMOL/L (3.6-5.0)
[2021-04-20 17:49] LABS: CALCIUM 9.3 MG/DL (8.5-10.1)
[2021-04-20 17:50] LABS: TOTAL PROTEIN 7.3 GM/DL (6.4-8.2)
[2021-04-20 17:52] LABS: BILIRUBIN,TOTAL 0.6 MG/DL (0.1-1.0)
[2021-04-20 17:53] LABS: CREATININE SERUM 1.94 MG/DL (0.60-1.30)
[2021-04-20] MEDS ORDERED: CEFEPIME INJECTION 2,000 MG in WATER (STERILE) FOR INJECTION 20 ML IV ONE (18:30)
--- NOTE | 2021-04-20 18:45 | Diagnostic Imaging Report ---
PROCEDURE: CT abdomen and pelvis without contrast. TECHNIQUE: Multiple contiguous axial images were obtained through the abdomen and pelvis without the use of intravenous contrast. Auto Exposure Controls were utilized during the CT exam to meet ALARA standards for radiation dose reduction. INDICATION: Pain, nausea, vomiting, diarrhea. COMPARED: 07/15/2019 FINDINGS: There are gallstones present without bile duct dilatation. No CT findings of acute cholecystitis. Spleen, adrenals and pancreas appeared nonacute. There is no hydroureteronephrosis. No opaque urinary tract calculi. There is noninflamed diverticulosis of the sigmoid. Some subcutaneous edema along the right greater than left flank. No fluid collection. No pneumatosis or free air. Lung bases and bony structures nonacute. The aorta is nonaneurysmal. Uterus and adnexa unremarkable. Urinary bladder nearly empty and appearing nonacute. There are no findings of appendicitis. IMPRESSION: Unobstructed and nonacute bowel, noninflamed diverticulosis, gallstones without bile duct dilatation, unobstructed urinary tracts. Dictated by: Dictated on workstation # [id number]
[2021-04-20] MEDS ORDERED: PROMETHAZINE INJ 25 MG/ML (PHENERGAN) AMP IVP ONE (19:45)
[2021-04-20] MEDS ORDERED: NS IV 500 ML 500 ML IV ONE (19:45)
[2021-04-20 20:20] VITALS: BP 119/78
[2021-04-20] MEDS ORDERED: NS IV 1000 ML 1,000 ML ONE (20:59)
[2021-04-20 21:13] VITALS: BP 139/100
[2021-04-20] MEDS ORDERED: RT-ALBUTEROL SULF 2.5 MG/3 ML PRE-MIX VIAL INH PRN (21:30)
[2021-04-20] MEDS ORDERED: CALCIUM CARBONATE 500 MG (TUMS) TAB.CHEW PO PRN (21:30)
[2021-04-20] MEDS ORDERED: LOPERAMIDE 2 MG (IMODIUM) TABLET PO PRN (21:30)
[2021-04-20] MEDS ORDERED: morphine INJ 10 MG/ML 1ML (SYR OR VIAL) IVP PRN (21:30)
[2021-04-20] MEDS ORDERED: ACETAMINOPHEN 500 MG TAB (TYLENOL) PO PRN (21:30)
[2021-04-20] MEDS ORDERED: ONDANSETRON 4 MG/2 ML (SDV) Z0FRAN IVP PRN (21:30)
[2021-04-20] MEDS ORDERED: MELATONIN 3 MG TABLET PO PRN (21:30)
[2021-04-20] MEDS ORDERED: HYDROcodone/APAP 5 MG/325 MG (LORTAB) TAB PO PRN (21:30)
[2021-04-20] MEDS ORDERED: ALPRAZolam 0.25 MG (XANAX) TAB PO PRN (21:30)
[2021-04-20] MEDS ORDERED: PROMETHAZINE INJ 25 MG/ML (PHENERGAN) AMP IVP PRN (21:45)
[2021-04-20] MEDS: NS IV 1000 ML 1,000 ML IV SCH (22:18)
--- NOTE | 2021-04-20 22:27 | Consultation - Surgery ---
History of Present Illness History of Present Illness Patient Consulted On(homa/time) 04/20/21 22:21 Time Seen by Provider: 20:12 History of Present Illness Surgery asked to consult regarding RUQ pain. HPI per ED: This is a well-appearing 60-year-old female who presents to the ER via POV with complaints of generalized abdominal pain, persistent nausea and vomiting. States that she has been having the symptoms on and off for the past month. She was recently diagnosed with a UTI and hospitalized at [facility] last week with same complaints. States that she was discharged home with plan to have gallbladder removed outpatient. I actually saw the pt in 2019 with similar complaints. This time she states she has had the pain for at least 3 weeks and she is miserable. When I asked her if she was ready now to get her gallbladder removed; she stated "please take it now". She rates the pain as 7 out of 10, chronic pain with occasional sharp stabbing pain that shoots into her back. She states at this point it occurs with all foods and she hasn't been able to eat the past couple of weeks; she gets nauseous as soon as she eats. Allergies and Home Medications Allergies Coded Allergies: Iodinated Contrast Media (Verified Allergy, Unknown, 07/16/19) dexamethasone (Unverified Adverse Reaction, Unknown, 07/15/19) dexamethasone sod phosphate (Unverified Adverse Reaction, Unknown, 07/15/19) diphenhydramine HCl (Unverified Adverse Reaction, Unknown, 07/15/19) Home Medications Diclofenac Sodium 75 Mg Tablet.dr, 75 MG PO BID, (Reported) Duloxetine HCl 30 Mg Capsule.dr, 30 MG PO HS, (Reported) Gabapentin 600 Mg Tablet, 600 MG PO QID, (Reported) Levothyroxine Sodium 25 Mcg Tablet, 25 MCG PO DAILY, (Reported) TAKES ALONG WITH 200MCG TABLET Levothyroxine Sodium 200 Mcg Tablet, 200 MCG PO DAILY, (Reported) TAKES ALONG WITH 25MCG TABLET Losartan Potassium 100 Mg Tablet, 100 MG PO DAILY, (Reported) Nitrofurantoin Monohyd/M-Cryst 100 Mg Capsule, 1 TAB PO BID Prescribed by: ALVA LI on 02/18/21 0210 Ondansetron 4 Mg Tab.rapdis, 4 MG PO Q6H PRN for NAUSEA/VOMITING Prescribed by: CORWIN CASANOVA on 04/04/21 0329 Patient Home Medication List Home Medication List Reviewed: Yes Past Zggewkb-Hzihvy-Yarfmt Hx Patient Social History Smoking Status: Never a Smoker 2nd Hand Smoke Exposure: No Recent Hopitalizations: No Alcohol Use?: Yes (rare) Immunizations Up To Date Tetanus Booster (TDap): Unknown Seasonal Allergies Seasonal Allergies: No Surgeries History of Surgeries: Yes (sinus surgery) Surgeries: Parathyroidectomy, Thyroidectomy Respiratory History of Respiratory Disorde: No Cardiovascular History of Cardiac Disorders: Yes Cardiac Disorders: Atrial Fibrillation, Hypertension Neurological History of Neurological Disord: Yes Neurological Disorders: Neuropathy Reproductive System Hx Reproductive Disorders: Yes (postmenopausal bleeding) GUIDE TOUR History: Menopausal Genitourinary History of Genitourinary Disor: Yes Genitourinary Disorders: UTI-Chronic Gastrointestinal History of Gastrointestinal Di: No Musculoskeletal History of Musculoskeletal Dis: Yes Musculoskeletal Disorders: Arthritis, Rheumatoid Arthritis, Chronic Back Pain Endocrine History of Endocrine Disorders: Yes Endocrine Disorders: Hypothyroidsim, Lupus HEENT History of HEENT Disorders: No Cancer History of Cancer: No Psychosocial History of Psychiatric Problem: No Integumentary History of Skin or Integumenta: No Family Medical History Significant Family History: Heart Disease, Cancer, Stroke Family Medial History: Colon cancer 19 MOTHER Completed stroke 19 MOTHER Myocardial infarction 19 FATHER Review of Systems-General Constitutional: chills, malaise, weakness EENTM: No double vision, No mouth pain, No mouth swelling, No epistaxis, No throat swelling Respiratory: No cough, No dyspnea on exertion, No short of breath Cardiovascular: No chest pain; palpitations Gastrointestinal: abdominal pain; No jaundice; loss of appetite, nausea, vomiting Genitourinary: dysuria, frequency; No hematuria Musculoskeletal: joint pain, joint swelling, muscle stiffness, muscle cramps Skin: No change in color, No change in hair/nails Psychiatric/Neurological: Denies Anxiety, Denies Depressed, Denies Seizure, Denies Tremors Other pt denies any hx of abnormal bleeding or bruising Physical Exam-General Problems Physical Exam Vital Signs Vital Signs - First Documented 04/20/21 04/20/21 04/20/21 16:50 20:20 21:13 Temp 35.5 Pulse 90 Resp 24 B/P (MAP) 139/100 (113) Pulse Ox 90 O2 Delivery Room Air O2 Flow Rate 2.00 FiO2 21 Capillary Refill : Less Than 3 Seconds General Appearance: mild distress, obese (morbidly), other (has crutches in her bed) Eyes: Bilateral Eye PERRL, Bilateral Eye EOMI HEENT: pharynx normal; No scleral icterus (R), No scleral icterus (L); other (poor dentition) Neck: non-tender, supple Respiratory: lungs clear, normal breath sounds, no respiratory distress, no accessory muscle use Cardiovascular: no murmur, irregularly irregular Gastrointestinal: soft, no organomegaly, guarding (voluntary), tenderness (RUQ) Rectal: deferred Back: no CVA tenderness, no vertebral tenderness Extremities: no calf tenderness, normal capillary refill, pedal edema (mild) Neurologic/Psychiatric: classroom monitor II-XII nml as tested, alert, normal mood/affect, oriented x 3 Skin: normal color, warm/dry Lymphatic: no adenopathy (neck, axilla or groin) Data Review Labs Laboratory Tests 04/20/21 17:00: Urine Color ORANGEH, Urine Clarity SL CLOUDY, Urine pH 5.5, Urine Specific [place] >=1.030, Urine Protein 1+H, Urine Glucose (UA) NEGATIVE, Urine Ketones NEGATIVE, Urine Nitrite POSITIVEH, Urine Bilirubin NEGATIVE, Urine Urobilinogen 1.0, Urine Leukocyte Esterase 1+H, Urine RBC (Auto) 3+H, Urine RBC 10-25H, Urine WBC 10-25H, Urine Squamous Epithelial Cells 2-5, Urine Crystals NONE, Urine Bacteria TRACE, Urine Casts NONE, Urine Mucus NEGATIVE, Urine Culture Indicated YES 04/20/21 17:15: White Blood Count 12.6H, Red Blood Count 5.28H, Hemoglobin 14.8, Hematocrit 50, Mean Corpuscular Volume 94, Mean Corpuscular Hemoglobin 28, Mean Corpuscular Hemoglobin Concent 30L, Red Cell Distribution Width 14.9H, Platelet Count 222, Mean Platelet Volume 12.2, Immature Granulocyte % (Auto) 0, Neutrophils (%) (Auto) 78H, Lymphocytes (%) (Auto) 14, Monocytes (%) (Auto) 6, Eosinophils (%) (Auto) 1, Basophils (%) (Auto) 1, Neutrophils # (Auto) 9.9H, Lymphocytes # (Auto) 1.8, Monocytes # (Auto) 0.8, Eosinophils # (Auto) 0.1, Basophils # (Auto) 0.1, Immature Granulocyte # (Auto) 0.0, Sodium Level 142, Potassium Level 4.3, Chloride Level 101, Carbon Dioxide Level 29, Anion Gap 12, Blood Urea Nitrogen 26H, Creatinine 1.94H, Estimat Glomerular Filtration Rate 27, BUN/Creatinine Ratio 13, Glucose Level 102, Calcium Level 9.3, Corrected Calcium 9.5, Total Bilirubin 0.6, Aspartate Amino Transf (AST/SGOT) 17, Alanine Aminotransferase (ALT/SGPT) 19, Alkaline Phosphatase 88, Total Protein 7.3, Albumin 3.7 04/20/21 17:55: Lactic Acid Level 1.59 Radiology Date of Exam:04/20/21 CT ABDOMEN/PELVIS WO PROCEDURE: CT abdomen and pelvis without contrast. TECHNIQUE: Multiple contiguous axial images were obtained through the abdomen and pelvis without the use of intravenous contrast. Auto Exposure Controls were utilized during the CT exam to meet ALARA standards for radiation dose reduction. INDICATION: Pain, nausea, vomiting, diarrhea. COMPARED: 07/15/2019 FINDINGS: There are gallstones present without bile duct dilatation. No CT findings of acute cholecystitis. Spleen, adrenals and pancreas appeared nonacute. There is no hydroureteronephrosis. No opaque urinary tract calculi. There is noninflamed diverticulosis of the sigmoid. Some subcutaneous edema along the right greater than left flank. No fluid collection. No pneumatosis or free air. Lung bases and bony structures nonacute. The aorta is nonaneurysmal. Uterus and adnexa unremarkable. Urinary bladder nearly empty and appearing nonacute. There are no findings of appendicitis. IMPRESSION: Unobstructed and nonacute bowel, noninflamed diverticulosis, gallstones without bile duct dilatation, unobstructed urinary tracts. Dictated by: Dictated on workstation # [id number] Dict: 04/20/21 1832 Trans: 04/20/218 CV [id number] Interpreted by: SIS FELIX Electronically signed by: SIS FELIX 04/20/218 Assessment/Plan Assessment/Plan Assessment/Plan Chronic Cholecystitis with Cholelithiasis Intractable N/V Morbid obesity Pt will be admitted and made NPO, IV fluids, pain control, anti-emetics as neede d and will be started on some ABX. Plan to take her to the OR tomorrow to perform a Laparoscopic Cholecystectomy with possible cholangiogram possible open. Discussed the risks and complications, not limited to pain, bleeding, infection, scar, damage to bowel or bile ducts and need for further procedure. All questions answered to her satisfaction. YAYO OLIVAS DO Apr 20, 2021 22:27
[2021-04-20] MEDS: ENOXAPARIN 60 MG/0.6 ML (LOVENOX) SYR SC SCH (22:51)
[2021-04-20 23:58] VITALS: BP 115/78
[2021-04-21] VITALS (13 sets, daily range): BP systolic 94–131; BP diastolic 64–99
[2021-04-21] MEDS: CEFEPIME 1,000 MG/SWFI 10 ML IV PUSH IV SCH ×8 (00:28→16:54)
--- NOTE | 2021-04-21 05:23 | History & Physical-Hospitalist ---
History of Present Illness HPI/Chief Complaint Chief complaint: Abdominal pain due to gallbladder biliary colic History of present illness: This is a 60-year-old white female clinic patient of [facility] who presented to the ER with abdominal pain and biliary colic with UTI and acute kidney injury. Patient received IV fluids and supportive care and IV medication to control the pain and antiemetics and creatinine is improved at 1.43. She is set to have a cholecystectomy today at [address] Valdez. Sister and life partner at the bedside. Source: patient Exam Limitations: no limitations Date Seen 04/21/21 Time Seen by a Provider: 10:30 Attending Physician Zabrina Pham DO [facility] Referring Physician Date of Admission Apr 20, 2021 at 18:59 Home Medications & Allergies Home Medications Reviewed patient Home Medication Reconciliation performed by pharmacy medication reconciliations nail technician and/or nursing. Patients Allergies have been reviewed. Allergies Allergies Coded Allergies Iodinated Contrast Media (Verified Allergy, Unknown, 07/16/19) dexamethasone (Unverified Adverse Reaction, Unknown, 07/15/19) dexamethasone sod phosphate (Unverified Adverse Reaction, Unknown, 07/15/19) diphenhydramine HCl (Unverified Adverse Reaction, Unknown, 07/15/19) Past Mxthzml-Jekpfm-Ypslij Hx Patient Social History Marrital Status: cohabiting Employed/Student: unemployed Tobacco Use?: No Smoking Status: Never a Smoker Smokeless Tobacco Frequency: Never a User Use of E-Cig and/or Vaping dev: No Substance use?: No Alcohol Use?: Yes (rare) Alcohol Frequency: Rarely Pt feels they are or have been: No Seasonal Allergies Seasonal Allergies: No Current Status status: No status: No Advance Directives: No Communicates: Verbally Primary Language: German Preferred Spoken Language: German Is interpretation needed?: No Implanted or Applied Medical D: None Past Medical History Surgeries: Parathyroidectomy, Thyroidectomy Atrial Fibrillation, Hypertension Neuropathy 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: Menopausal UTI-Chronic Arthritis, Rheumatoid Arthritis, Chronic Back Pain Hypothyroidsim, Lupus Family Medical History Colon cancer 19 MOTHER Completed stroke 19 MOTHER Myocardial infarction 19 FATHER Heart Disease, Cancer, Stroke Mother (69 ): cancer unknown type Father ( at 60): Heart attack One brother: stroke three sisters: one dx with lupus Review of Systems Constitutional: see HPI, malaise, weakness Gastrointestinal: abdominal pain, loss of appetite, nausea, vomiting Physical Exam Physical Exam Vital Signs Vital Signs - First Documented 04/20/21 04/20/21 04/20/21 16:50 20:20 21:13 Temp 35.5 Pulse 90 Resp 24 B/P (MAP) 139/100 (113) Pulse Ox 90 O2 Delivery Room Air O2 Flow Rate 2.00 FiO2 21 Capillary Refill : Less Than 3 Seconds Height, Weight, BMI Height: 5'6.00" Weight: 331lbs. 0oz. [id number]; 60.66 BMI Method:Stated General Appearance: No Apparent Distress, Chronically ill, Obese Eyes: Right Eye Normal Inspection, Right Eye PERRL HEENT: PERRL/EOMI, Normal ENT Inspection, Pharynx Normal, Moist Mucous Membranes Neck: Full Range of Motion, Normal Inspection, Non Tender Respiratory: Chest Non Tender, Lungs Clear, Normal Breath Sounds, No Accessory Muscle Use, No Respiratory Distress Cardiovascular: Regular Rate, Rhythm, No Edema, No Gallop, No JVD, No Murmur, Normal Peripheral Pulses Gastrointestinal: Normal Bowel Sounds, No Organomegaly, No Pulsatile Mass, Non Tender, Soft Back: Normal Inspection, No CVA Tenderness, No Vertebral Tenderness Extremity: Normal Capillary Refill, Normal Inspection, Normal Range of Motion, Non Tender, No Calf Tenderness, No Pedal Edema Neurologic/Psychiatric: Alert, Oriented x3, No Motor/Sensory Deficits, Normal Mood/Affect Skin: Normal Color, Warm/Dry Lymphatic: No Adenopathy Results Results/Procedures Labs Laboratory Tests 04/20/21 17:15 04/21/21 05:52 Patient resulted labs reviewed. Assessment/Plan Admission Diagnosis Assessment: Abdominal pain from biliary colic UTI Acute kidney injury Morbid obesity Hypothyroidism Atrial fibrillation Plan: Cholecystectomy since benefits outweigh risk UTI treatment Monitor closely Admission Status: Observation Diagnosis/Problems Diagnosis/Problems (1) Nausea & vomiting Status: Acute (2) Acute kidney injury Status: Acute (3) UTI (urinary tract infection) Status: Acute (4) Cholelithiases Status: Acute ZABRINA PHAM DO Apr 21, 2021 05:23
[2021-04-21 06:06] LABS: BASOPHILS # (AUTO) 0.1 10^3/uL (0.0-0.1); BASOPHILS % (AUTO) 1 % (0-10); EOSINOPHILS # (AUTO) 0.1 10^3/uL (0.0-0.3); EOSINOPHILS % (AUTO) 2 % (0-10); HEMATOCRIT 47 % (35-52); HEMOGLOBIN 13.5 g/dL (11.5-16.0); LYMPHOCYTES # (AUTO) 1.8 10^3/uL (1.0-4.0); LYMPHOCYTES % (AUTO) 21 % (12-44); MEAN CORPUSCULAR HEMOGLOBIN 28 pg (25-34); MEAN CORPUSCULAR HGB CONC 29 g/dL (32-36); MEAN CORPUSCULAR VOLUME 97 fL (80-99); MEAN PLATELET VOLUME 12.1 fL (9.0-12.2); MONOCYTES # (AUTO) 0.6 10^3/uL (0.0-1.0); MONOCYTES % (AUTO) 6 % (0-12); NEUTROPHILS # (AUTO) 6.1 10^3/uL (1.8-7.8); NEUTROPHILS % (AUTO) 70 % (42-75); PLATELET COUNT 189 10^3/uL (130-400); WHITE BLOOD COUNT 8.7 10^3/uL (4.3-11.0)
[2021-04-21 06:21] LABS: ALBUMIN 3.3 GM/DL (3.2-4.5)
[2021-04-21 06:22] LABS: POTASSIUM 4.6 MMOL/L (3.6-5.0)
[2021-04-21 06:23] LABS: CALCIUM 8.5 MG/DL (8.5-10.1)
[2021-04-21 06:24] LABS: TOTAL PROTEIN 6.2 GM/DL (6.4-8.2)
[2021-04-21 06:26] LABS: BILIRUBIN,TOTAL 0.7 MG/DL (0.1-1.0)
[2021-04-21 06:28] LABS: CREATININE SERUM 1.43 MG/DL (0.60-1.30)
[2021-04-21] MEDS: SENNA W/DOCUSATE (SENOKOT S) TABLET PO SCH ×2 (08:55→20:56)
[2021-04-21] MEDS: ENOXAPARIN 60 MG/0.6 ML (LOVENOX) SYR SC SCH ×2 (08:55→22:12)
[2021-04-21] MEDS: PANTOPRAZOLE 40 MG (PROTONIX) VIAL IV SCH (08:58)
[2021-04-21] MEDS ORDERED: CEFEPIME INJECTION 2,000 MG in WATER (STERILE) FOR INJECTION 20 ML IV SCH (09:00)
[2021-04-21] MEDS ORDERED: MIDAZOLAM 2 MG/2 ML (VERSED) VIAL ONE (11:08)
[2021-04-21] MEDS ORDERED: fentaNYL INJ 100 MCG/2 ML AMP ONE (11:09)
[2021-04-21] MEDS ORDERED: LIDOCAINE/EPI 1%-1:100,000 (XYLOCAINE) 20ML ONE (11:10)
[2021-04-21] MEDS ORDERED: IOPAMIDOL 61% 30 ML (ISOVUE 300) VIAL ONE (11:10)
[2021-04-21] MEDS: LACTATED RINGERS 1,000 ML IV PRN ×2 (11:32→12:21)
[2021-04-21] MEDS ORDERED: CLINDAMYCIN 600 MG/4ML (CLEOCIN) VIAL ONE (11:33)
[2021-04-21] MEDS ORDERED: PHENYLEPHRINE 100 MCG/ML 10 ML (ANESTHESIA) SYR ONE (11:39)
[2021-04-21] MEDS ORDERED: LIDOCAINE PF 2% 5 ML (XYLOCAINE) VIAL ONE (11:43)
[2021-04-21] MEDS ORDERED: ROCURONIUM 10 MG/ML 5 ML SYRINGE IV ONE (11:43)
[2021-04-21] MEDS ORDERED: SEVOFLURANE (ULTANE) 15 ML INHAL SOLN ONE (11:43)
[2021-04-21] MEDS ORDERED: GLYCOPYRROLATE 0.2 MG/ML (ROBINUL) 2 ML VIAL ONE (11:43)
[2021-04-21] MEDS ORDERED: proPOfol 200 MG/20 ML (DIPRIVAN) VIAL IV ONE (11:43)
[2021-04-21] MEDS ORDERED: NEOSTIGMINE 3 MG/3 ML VIAL ONE (11:43)
[2021-04-21] MEDS ORDERED: SUCCINYLCHOLINE INJ 100 MG/5 ML SYR/VIAL ONE (11:43)
[2021-04-21] MEDS ORDERED: ONDANSETRON 4 MG/2 ML (SDV) Z0FRAN ONE (11:43)
[2021-04-21] MEDS ORDERED: CLINDAMYCIN 900 MG/50 ML IVPB 50 ML IV ONE (11:45)
[2021-04-21] MEDS ORDERED: ONDANSETRON 4 MG/2 ML (SDV) Z0FRAN IVP PRN (13:15)
[2021-04-21] MEDS ORDERED: morphine INJ 10 MG/ML 1ML (SYR OR VIAL) IVP ONE (13:15)
--- NOTE | 2021-04-21 14:53 | Progress Note-Post Operative ---
Post-Operative Progess Note Surgeon (s)/Care Transition Coordinator (s) Surgeon YAYO OLIVAS DO Care Transition Coordinator: Nargis Pre-Operative Diagnosis Chronic Cholecystitis with Cholelithiasis Post-Operative Diagnosis same Procedure & Operative Findings Date of Procedure 04/21/21 Procedure Performed/Findings PROCEDURE: Laparoscopic cholecystectomy with intraoperative cholangiogram. COMPLICATIONS: None. PROCEDURE: The patient was taken to the operating suite and was prepped and draped in sterile fashion. A surgical pause was performed. Just superior to the umbilicus, a 12 mm incision was made. Dissection was taken down to the fascia, which was then scored and grasped with a Karen and the abdomen was then entered. A 0 Vicryl suture was placed in a djegjy-re-ihdgh fashion and a Chaudhry trocar was placed and secured. Pneumoperitoneum was achieved. A 5mm trochar place in the subxyphoid and 2 in the right upper quadrant. The gallbladder was noted to be covered in omentum and adhesions; a sign of previous cholecystitis attack. The adhesions were carefully taken down with bovie cautery and blunt dissection. Then grasped the gallbladder at the fundus and took it in the superior direction. Able to dissect out robin's pouch and pull it in the infero-lateral direction. The cystic duct, and cystic artery were then dissected out. Clip was placed on the distal portion of the cystic duct which was then partially transected. An arrow catheter was inserted into the duct. The cholangiogram was then performed. No filing defects and contrast made its way into the duodenum. Catheter removed. Clips were placed on proximal portion of the cystic duct and then the duct was then transected. Clips were placed along the proximal and distal portion of the cystic artery which was then transected. Hook cautery was used to dissect the gallbladder from the gallbladder fossa achieving hemostasis. The gallbladder was placed in an Endobag and removed through the 12 mm trocar site. The abdomen was then reinspected. Copious amounts of irrigation were used to irrigate the abdomen and there were no signs of active bleeding. Hemostasis had been achieved. The 12 mm fascial defect was then closed with 0 Vicryl suture that had been placed in a [id number]-[id number]-[id number] fashion. The abdomen was then desufflated, the trocars were removed. The abdomen was then washed and dried. The skin was then closed using 4-0 Monocryl in a subcuticular fashion. The abdomen was washed and dried and Skin Affix was place over incisions. Patient tolerated the procedure well without any complications and was taken to the recovery room in stable condition. Dr. Barillas assisted on this case helping to make incisions, close incisions, identify anatomy and hold anatomy out of the way. Anesthesia Type GET Estimated Blood Loss Estimated blood loss (mL): scant Specimens/Packing Specimens Removed GB and contents YAYO OLIVAS DO Apr 21, 2021 14:53
[2021-04-21] MEDS ORDERED: ACHYD1T PO (14:54)
--- NOTE | 2021-04-21 14:57 | Discharge Inst-Surgical ---
Discharge Inst-Surgical Depart Medication/Instructions New, Converted or Re-Newed RX: RX Given to Pt/Family Patient Instructions Follow up Appt: Make appointment for 1 week. [phone] Instructions: No lifting greater than 20 pounds. No strenuous activity. May shower in 24 hours, no tub bath or soaking. Use incentive spirometer at home as directed. No Smoking Skin/Wound Care: May remove bandages in am. You need to leave the Dermabond on incision it will fall off on it's own. Symptoms to Report: Appetite Changes, Extremity Discoloration, Numbness/Tingling, Swelling Increased, Bleeding Excessive, Eyesight Changes, Pain Increased, Urine Color Change, Constipation(Persistent), Fever over 101 degree F, Pain/Pressure in chest, Urinating Difficulty, Cough Up/Vomit Blood, Heart Beat Irreg/Pounding, Pain/Pressure in jaw, Cramps in feet or legs, Lightheadedness, Pain/Pressure in shoulder, Diarrhea(Persistent), Memory Changes Suddenly, Questions/Concerns, Weight gain consecutive days, Dizziness/Fainting, Nausea/Vomiting, Shortness of Breath, Weight gain over 2 pounds If questions or concerns contact your physician Or seek help at emergency department. Activity Activity as Tolerated: Yes Activity Instructions: Avoid Stress to Incision Driving Instructions: No Driving/Refer to Diet Discharge Diet: Avoid Fatty Foods, Low Fat/Low Cholesterol Diet After 24 Hours: Clear Liquid if Nauseous If Any Problems/Questions/Issu: Contact Your Physician, Go to Emergency Room Skin/Wound Care Infection Signs and Symptoms: Increased Redness, Foul Odor of Wound, Increased Drainage, Skin Itchy or Has a Rash, Increased Swelling, Temperature Above 101 F Bathing Instructions: Shower Stitches/Bartlett/Dermabond Dis: Dermabond YAYO OLIVAS DO Apr 21, 2021 14:57
--- NOTE | 2021-04-21 15:49 | Diagnostic Imaging Report ---
INDICATION: Fluoroscopy during intraoperative cholangiogram. Fluoroscopy was provided in the OR during intraoperative cholangiogram. 22 seconds of fluoroscopic time was utilized. 160 images were obtained. Images demonstrate contrast being injected via the cystic duct remnant. Contrast in the common duct passes into the small bowel. No filling defects are seen to suggest retained stone. IMPRESSION: Fluoroscopy during intraoperative cholangiogram. Dictated by: Dictated on workstation # [id number]
[2021-04-21] MEDS: NS IV 1000 ML 1,000 ML IV SCH (16:51)
[2021-04-22 03:40] VITALS: BP 125/88
[2021-04-22 05:46] LABS: BASOPHILS # (AUTO) 0.1 10^3/uL (0.0-0.1); BASOPHILS % (AUTO) 1 % (0-10); EOSINOPHILS # (AUTO) 0.1 10^3/uL (0.0-0.3); EOSINOPHILS % (AUTO) 1 % (0-10); HEMATOCRIT 48 % (35-52); HEMOGLOBIN 14.2 g/dL (11.5-16.0); LYMPHOCYTES # (AUTO) 1.8 10^3/uL (1.0-4.0); LYMPHOCYTES % (AUTO) 20 % (12-44); MEAN CORPUSCULAR HEMOGLOBIN 28 pg (25-34); MEAN CORPUSCULAR HGB CONC 30 g/dL (32-36); MEAN CORPUSCULAR VOLUME 95 fL (80-99); MEAN PLATELET VOLUME 12.3 fL (9.0-12.2); MONOCYTES # (AUTO) 0.7 10^3/uL (0.0-1.0); MONOCYTES % (AUTO) 8 % (0-12); NEUTROPHILS # (AUTO) 6.7 10^3/uL (1.8-7.8); NEUTROPHILS % (AUTO) 71 % (42-75); PLATELET COUNT 195 10^3/uL (130-400); WHITE BLOOD COUNT 9.4 10^3/uL (4.3-11.0)
[2021-04-22 05:50] LABS: ALBUMIN 3.3 GM/DL (3.2-4.5); POTASSIUM 4.9 MMOL/L (3.6-5.0)
[2021-04-22 05:52] LABS: CALCIUM 8.5 MG/DL (8.5-10.1)
[2021-04-22 05:53] LABS: TOTAL PROTEIN 6.5 GM/DL (6.4-8.2)
[2021-04-22 05:54] LABS: BILIRUBIN,TOTAL 0.7 MG/DL (0.1-1.0)
[2021-04-22 05:56] LABS: CREATININE SERUM 1.07 MG/DL (0.60-1.30)
--- NOTE | 2021-04-22 06:32 | Discharge Summary ---
Discharge Summary Hospital Course Was the Problem List Reviewed?: Yes Problems/Dx: (1) Nausea & vomiting Status: Acute (2) Acute kidney injury Status: Acute (3) UTI (urinary tract infection) Status: Acute (4) Cholelithiases Status: Acute Hospital Course Date of Admission: Apr 20, 2021 at 18:59 Admission Diagnosis : Family Physician/Provider: Barb Tidwell Aprn Date of Discharge: 04/22/21 Discharge Diagnosis: Nausea and vomiting, abdominal pain, biliary colic, abnormal UA but no evidence of UTI Hospital Course: Patient had an uneventful hospital course after she was admitted for abdominal pain and nausea vomiting acute kidney injury patient received IV fluids and supportive care and antibiotics but urine culture revealed no significant pathogen so those were discontinued. Patient did undergo uncomplicated cholecystectomy with Dr. Valdez and was discharged in improved condition. Labs and Pending Lab Test: Laboratory Tests 04/22/21 05:14: White Blood Count 9.4, Red Blood Count 5.08, Hemoglobin 14.2, Hematocrit 48, Mean Corpuscular Volume 95, Mean Corpuscular Hemoglobin 28, Mean Corpuscular Hemoglobin Concent 30L, Red Cell Distribution Width 14.8H, Platelet Count 195, Mean Platelet Volume 12.3H, Immature Granulocyte % (Auto) 0, Neutrophils (%) (Auto) 71, Lymphocytes (%) (Auto) 20, Monocytes (%) (Auto) 8, Eosinophils (%) (Auto) 1, Basophils (%) (Auto) 1, Neutrophils # (Auto) 6.7, Lymphocytes # (Auto) 1.8, Monocytes # (Auto) 0.7, Eosinophils # (Auto) 0.1, Basophils # (Auto) 0.1, Immature Granulocyte # (Auto) 0.0, Sodium Level 141, Potassium Level 4.9, Chloride Level 104, Carbon Dioxide Level 26, Anion Gap 11, Blood Urea Nitrogen 16, Creatinine 1.07, Estimat Glomerular Filtration Rate 53, BUN/Creatinine Ratio 15, Glucose Level 86, Calcium Level 8.5, Corrected Calcium 9.1, Total Bilirubin 0.7, Aspartate Amino Transf (AST/SGOT) 22, Alanine Aminotransferase (ALT/SGPT) 21, Alkaline Phosphatase 74, Total Protein 6.5, Albumin 3.3 Microbiology 04/20/21 Urine Culture - Final, Complete >=3 Gram Positive Isolates Home Meds Active HYDROcodone/APAP 10/325 TABLET (Acetaminophen/Hydrocodone Bitart) 1 Ea Tab 1 Tab PO Q6H MDD 5 Ondansetron Odt (Ondansetron) 4 Mg Tab.rapdis 4 Mg PO Q6H PRN Macrobid 100 mg Capsule (Nitrofurantoin Monohyd/M-Cryst) 100 Mg Capsule 1 Tab PO BID Reported Duloxetine HCl 30 Mg Capsule.dr 30 Mg PO HS Gabapentin 600 Mg Tablet 600 Mg PO QID Losartan Potassium 100 Mg Tablet 100 Mg PO DAILY Diclofenac Sodium 75 Mg Tablet.dr 75 Mg PO BID Levothyroxine Sodium 200 Mcg Tablet 200 Mcg PO DAILY TAKES ALONG WITH 25MCG TABLET Levothyroxine Sodium 25 Mcg Tablet 25 Mcg PO DAILY TAKES ALONG WITH 200MCG TABLET Assessment/Pt Instructions PCP in [address] Valdez as instructed Discharge Planning: <30 minutes discharge planning Discharge Instructions Discharge Diet: Avoid Fatty Foods, Low Fat/Low Cholesterol Activity as Tolerated: Yes Discharge Physical Examination Vital Signs Vital Signs Date Time Temp Pulse Resp B/P (MAP) Pulse Ox O2 Delivery O2 Flow Rate FiO2 04/22/21 03:40 36.7 109 18 125/88 (100) 95 Nasal Cannula 1.50 04/20/21 21:13 21 General Appearance: No Apparent Distress, WD/WN, Chronically ill Allergies: Coded Allergies: Iodinated Contrast Media (Verified Allergy, Unknown, 07/16/19) dexamethasone (Unverified Adverse Reaction, Unknown, 07/15/19) dexamethasone sod phosphate (Unverified Adverse Reaction, Unknown, 07/15/19) diphenhydramine HCl (Unverified Adverse Reaction, Unknown, 07/15/19) Discharge Summary Date of Admission Apr 20, 2021 at 18:59 Date of Discharge Discharge Date: Apr 22, 2021 Admission Diagnosis Assessment: Abdominal pain from biliary colic UTI Acute kidney injury Morbid obesity Hypothyroidism Atrial fibrillation Plan: Cholecystectomy since benefits outweigh risk UTI treatment Monitor closely Discharge Diagnosis (1) Nausea & vomiting Status: Acute (2) Acute kidney injury Status: Acute (3) UTI (urinary tract infection) Status: Acute (4) Cholelithiases Status: Acute MARILYNN KELLY DO Apr 22, 2021 06:32
[2021-04-22 07:10] VITALS: BP 129/85
[2021-04-22] MEDS: NS IV 1000 ML 1,000 ML IV SCH (08:34)
[2021-04-22] MEDS: PANTOPRAZOLE 40 MG (PROTONIX) VIAL IV SCH (08:35)
[2021-04-22] MEDS: SENNA W/DOCUSATE (SENOKOT S) TABLET PO SCH (08:36)
[2021-04-22] MEDS: ENOXAPARIN 60 MG/0.6 ML (LOVENOX) SYR SC SCH (10:02)
[2021-04-22 13:21] VITALS: BP 129/85
--- NOTE | 2021-04-22 13:23 | Anesthesia-General Post-Op ---
General Post Op Complications Complications None Follow Up Care/Instructions Patient Instructions None needed. Anesthesia/Patient Condition Patient Condition Patient discharged. Chart reviewed, no apparent adverse anesthesia problems. No complications reported per nursing. JACKY OLEARY CRNA Apr 22, 2021 13:23
== END 2021-04-22 13:00 | disposition home or self-care (01) ==
LOC: EDUNIT# 16:21 → ER 16:24 → 4TH 18:59
PROVIDERS: ADMIT Internal Medicine; ATTEND Internal Medicine
DX: K80.10 Calculus of gallbladder with chronic cholecystitis without obstruction (principal); I10 Essential (primary) hypertension; I48.91 Unspecified atrial fibrillation; N39.0 Urinary tract infection, site not specified; M06.9 Rheumatoid arthritis, unspecified; E89.0 Postprocedural hypothyroidism; N17.9 Acute kidney failure, unspecified; E66.01 Morbid (severe) obesity due to excess calories; Z68.43 Body mass index [BMI] 50.0-59.9, adult; Z91.041 Radiographic dye allergy status; Z88.8 Allergy status to other drugs, medicaments and biological substances; Z79.891 Long term (current) use of opiate analgesic; Z79.890 Hormone replacement therapy; Z79.899 Other long term (current) drug therapy; Z78.0 Asymptomatic menopausal state
CPT/HCPCS: 36415; 74176; 76000; 80053; 81000; 82150; 83605; 83690; 85025; 87081; 87088; 88304; 94664

== ENCOUNTER 2022-07-01 20:19 | Emergency (ER) | payer MEDICARE, OTHER ==
[~2022-07-01 20:19] MED LIST changes: +ACHYD1T PO
[2022-07-01] MEDS ORDERED: LIDOCAINE 1% INJ 50 ML (XYLOCAINE) VIAL IJ STA (20:36)
--- NOTE | 2022-07-01 20:41 | ED Fall/Injury ---
General Chief Complaint: Laceration Stated Complaint: FALL/LEFT HAND LACERATION Nursing Triage Note: Pt states she fell at home about an hour ago. She states she was using her crutch to get around and slipped on some water. Pt presents with a left hand laceration Source: patient History of Present Illness Date Seen by Provider: Jul 01, 2022 Time Seen by Provider: 20:24 Initial Comments 61-year-old female presenting with complaint of fall at home tonight. She had been trying to clean them up her house and had slipped on some water. She tried to catch herself and caught her hand on a door pull. The pull had a sharp point to it and had cut into her left hand. She is also on Eliquis so she was having a lot of bleeding initially. Bleeding is controlled at this time. She cleaned the wound with alcohol and hydrogen peroxide at home. She denies hitting her head or losing consciousness. She states that she feels like she strained her hip when she fell as well as bruised her elbow. she reports it has been more than 10 years since her last tetanus booster. Location Injury Occurred: Home Occurred: this evening Severity: mild Injuries/Pain Location: upper extremity (left hand laceration, left elbow contusion), lower extremity (left hip strain) Context: slipped Loss of Consciousness: no loss of consciousness Modifying Factors: Worse With Movement Associated Symptoms (Fall): No Abdominal Pain, No Chest Pain, No Confusion, No Dizziness, No Headache, No Lightheadedness, No Muscle Spasms, No Nausea/Vomiting, No Neck Pain, No Ringing in Ears, No Seizures, No Shortness of Air, No Slurred Speech, No Trouble Walking, No Vision Changes Allergies and Home Medications Allergies Coded Allergies: Iodinated Contrast Media (Verified Allergy, Unknown, 07/16/19) dexamethasone (Unverified Adverse Reaction, Unknown, 07/15/19) dexamethasone sod phosphate (Unverified Adverse Reaction, Unknown, 07/15/19) diphenhydramine HCl (Unverified Adverse Reaction, Unknown, 07/15/19) Patient Home Medication List Home Medication List Reviewed: Yes Diclofenac Sodium (Diclofenac Sodium) 75 Mg Tablet.dr, 75 MG PO BID, (Reported) Entered as Reported by: RAYMOND ANAYA on 07/16/19 0836 Duloxetine HCl (Duloxetine HCl) 30 Mg Capsule.dr, 30 MG PO HS, (Reported) Entered as Reported by: RAYMOND ANAYA on 07/16/19 0836 Gabapentin (Gabapentin) 600 Mg Tablet, 600 MG PO QID, (Reported) Entered as Reported by: RAYMOND ANAYA on 07/16/19 0836 Hydrocodone Bit/Acetaminophen (HYDROcodone/APAP 10/325 TABLET) 1 Ea Tab, 1 TAB PO Q6H Prescribed by: YAYO OLIVAS on 04/21/21 1456 Levothyroxine Sodium (Levothyroxine Sodium) 25 Mcg Tablet, 25 MCG PO DAILY, (Reported) Entered as Reported by: RAYMOND ANAYA on 07/16/19 0836 Levothyroxine Sodium (Levothyroxine Sodium) 200 Mcg Tablet, 200 MCG PO DAILY, (Reported) Entered as Reported by: RAYMOND ANAYA on 07/16/19 08 Losartan Potassium (Losartan Potassium) 100 Mg Tablet, 100 MG PO DAILY, (Reported) Entered as Reported by: RAYMOND ANAAY on 07/16/19835 Nitrofurantoin Monohyd/M-Cryst (Macrobid 100 mg Capsule) 100 Mg Capsule, 1 TAB PO BID Prescribed by: ALVA LI on 02/18/21 0210 Ondansetron (Ondansetron Odt) 4 Mg Tab.rapdis, 4 MG PO Q6H PRN for NAUSEA/VOMITING Prescribed by: CORWIN CASANOVA on 04/04/21 0329 Review of Systems Review of Systems Constitutional: No chills, No dizziness, No fever Eyes: Denies Blurred Vision, Denies Photophobia Ears, Nose, Mouth, Throat: denies ear pain, denies ear discharge, denies nose pain, denies nose discharge, denies epistaxis, denies mouth pain Respiratory: No cough, No short of breath Cardiovascular: No chest pain Gastrointestinal: No nausea, No vomiting Genitourinary: no symptoms reported Musculoskeletal: see HPI Skin: see HPI Psychiatric/Neurological: Tingling (left pinky finger) Past Dombdwa-Xknmxi-Tctvrs Hx Patient Social History Tobacco Use?: No Use of E-Cig and/or Vaping dev: No Substance use?: No Alcohol Use?: No Pt feels they are or have been: No Immunizations Up To Date Tetanus Booster (TDap): Unknown Seasonal Allergies Seasonal Allergies: No Past Medical History Surgery/Hospitalization HX: sinus surgery, thyroidectomy Surgeries: Yes (sinus surgery) Parathyroidectomy, Thyroidectomy Respiratory: No Cardiac: Yes Atrial Fibrillation, Hypertension Neurological: Yes Neuropathy Reproductive Disorders: Yes (postmenopausal bleeding) H[employer] History: Menopausal Genitourinary: Yes UTI-Chronic Gastrointestinal: No Musculoskeletal: Yes Arthritis, Rheumatoid Arthritis, Chronic Back Pain Endocrine: Yes Hypothyroidsim, Lupus HEENT: No Cancer: No Psychosocial: No Integumentary: No Family Medical History Colon cancer 19 MOTHER Completed stroke 19 MOTHER Myocardial infarction 19 FATHER Heart Disease, Cancer, Stroke Mother (69 ): cancer unknown type Father ( at 60): Heart attack One brother: stroke three sisters: one dx with lupus Physical Exam Vital Signs Vital Signs - First Documented 07/01/22 20:24 Temp 36.3 Pulse 103 Resp 20 B/P (MAP) 187/103 (131) Pulse Ox 94 O2 Delivery Room Air Capillary Refill : Less Than 3 Seconds Height, Weight, BMI Height: 5'6.00" Weight: 331lbs. 0oz. 150.484158ab; 60.66 BMI Method:Stated General Appearance: no apparent distress, obese HEENT: PERRL/EOMI, pharynx normal Neck: non-tender, full range of motion, supple, normal inspection Cardiovascular: normal peripheral pulses Extremities: normal range of motion, no calf tenderness, normal capillary refill, other (3.3 cm laceration to left medial hand proximal to pinky finger MCP joint. states sensation intact to light touch of pinky finger and has normal range of motion) Neurologic/Psychiatric: alert, normal mood/affect, oriented x 3 Skin: normal color, warm/dry [place] Coma Score Best Eye Response: (4) Open Spontaneously Best Verbal Response: (5) Oriented Best Motor Response: (6) Obeys Commands Alexis Total: 15 Procedures/Interventions Wound Location: Upper Extremities (Left hand) Wound Length (cm): 3.3 Wound's Depth, Shape: linear, contused tissue, sub Q Wound Explored: clean Irrigated w/ Saline (ccs): 200 Anesthesia: 1% Lidocaine Volume Anesthetic (ccs): 8 Suture: Ethlion Suture Size: 4-0 Number of Sutures: 7 Sterile Dressing Applied?: Yes Progress After obtaining verbal consent from the patient the wound was cleaned with chlorhexidine scrub soap and sterile saline. 1% plain lidocaine was infiltrated in the wound for anesthetic effect. A total of 8 mL of 1% plain lidocaine were infiltrated. The wound edges were approximated using 4-0 Ethilon and simple i nterrupted stitches. A total of 7 simple interrupted stitches were used to approximate the wound edges. Wound edges were well approximated and patient tolerated procedure well without any immediate complication. No foreign bodies were seen on visual inspection or on x-ray of the wound prior to closure. Counseled on management of the wound as well as follow-up and return precaut ions. Advised to have the stitches removed in 10 to 14 days. Progress/Results/Core Measures Results/Orders My Orders Orders - GREYSON GREEN MD Hand 3 View Left (07/01/22 20:34) Dipht,Pertuss(Acell),Tet Adult (Boostrix (07/01/22 20:45) Lidocaine 1% Inj 50 Ml (Xylocaine 1% Inj (07/01/22 20:36) Medications Given in ED Current Medications Medications Dose Ordered Sig/Aly Route Start Time Stop Time Status Last Admin Dose Admin Diphtheria/ Tetanus/Acell Pertussis 0.5 ml ONCE ONCE IM 07/01/22 20:45 07/01/22 20:46 DC 07/01/22 20:49 0.5 ML Vital Signs/I&O 07/01/22 07/01/22 20:24 22:22 Temp 36.3 Pulse 103 71 Resp 20 20 B/P (MAP) 187/103 (131) 165/93 Pulse Ox 94 94 O2 Delivery Room Air Room Air Blood Pressure Mean: 131 Progress Progress Note #1: Progress Note xray left hand to check for foreign body or bony injury. Update tetanus booster. Plan on stitches to repair the laceration. Progress Note #2: Progress Note No obvious bony abnormality or foreign body seen on the x-rays. She does have arthritic changes to the joints. Patient tolerated laceration repair with stitches well without any immediate complication. Pressure dressing applied by nurse to help with bleeding and bruising since patient is on Eliquis. Counseled to try and elevate her hand and use ice packs to help with bruising and swelling as well. Diagnostic Imaging Diagonstic Imaging: Xray Plain Films/CT/US/NM/MRI: hand Comments [facility]. [place], [place] NAME: ENMANUEL ANAYA [facility] REC#: [id number] PT STATUS: REG ER : 1960 PHYSICIAN: GREYSON GREEN MD ADMIT DATE: 07/01/22/ER FS Signed Date of Exam:07/01/22 HAND 3 VIEW LEFT INDICATION: Fall with left hand injury and pain. EXAMINATION: AP, oblique and lateral views of left hand. FINDINGS: No acute fracture or malalignment is identified. There is marked joint space narrowing, marginal spurring and fragmentation at the 1st carpometacarpal joint. Mild interphalangeal joint space narrowing is also noted, most pronounced at the 5th digit. Laceration is seen adjacent to the distal head of 5th metacarpal. There is no evidence of radiopaque foreign body. There is ulnar minus variation. IMPRESSION: Medial hand laceration without acute osseous abnormality identified. Marked degenerative findings are present at the 1st carpometacarpal joint. Dictated by: Dictated on workstation # [id number] Dict: 07/01/222048 Trans: 07/01/222107 [facility] [id number] Interpreted by: SIS JAMESON MD Electronically signed by: SIS JAMESON MD 07/01/222107 Reviewed: Reviewed by Me Departure Impression Primary Impression: Laceration of left hand without foreign body Qualified Codes: S61.412A - Laceration without foreign body of left hand, initial encounter Additional Impressions: Fall at home Qualified Codes: W19.XXXA - Unspecified fall, initial encounter; Y92.009 - Unspecified place in unspecified non-institutional (private) residence as the place of occurrence of the external cause Strain of muscle, fascia and tendon of left hip, initial encounter Contusion of left elbow, initial encounter Disposition: 01 HOME, SELF-CARE Condition: Stable Departure-Patient Inst. Decision time for Depature: 22:17 Referrals: [facility] (PCP) Primary Care Physician RAYMOND LUBIN APRN (Family) Primary Care Physician Patient Instructions: Laceration Repair With Stitches ED, Muscle Strain ED, Minor Contusion ED, Preventing Falls ED Add. Discharge Instructions: Use ice pack or cold pack for 10 to 15 minutes every few hours as needed to help with bruising and swelling. Try to keep your hand elevated above heart level to help with bruising and swelling. After 24 hours of keeping the wound clean and dry you could remove the dressing and wash with soap and water. Do not soak your hand longer than it takes to wash and clean it. The stitches can be removed in 10 to 14 days. Be seen sooner if you have concerns for infection such as redness streaking up your hand, fever over 101 Fahrenheit, pus draining from the wound. You could return here to the emergency department to have the stitches removed or you could follow-up with your primary care provider All discharge instructions reviewed with patient and/or family. Voiced understanding. GREYSON GREEN MD Jul 01, 2022 20:40
[2022-07-01] MEDS ORDERED: TETANUS,DIPTH,PERTUSS P/F (BOOSTRIX) 0.5 ML VIAL IM ONE (20:45)
--- NOTE | 2022-07-01 20:54 | Diagnostic Imaging Report ---
INDICATION: Fall with left hand injury and pain. EXAMINATION: AP, oblique and lateral views of left hand. FINDINGS: No acute fracture or malalignment is identified. There is marked joint space narrowing, marginal spurring and fragmentation at the 1st carpometacarpal joint. Mild interphalangeal joint space narrowing is also noted, most pronounced at the 5th digit. Laceration is seen adjacent to the distal head of 5th metacarpal. There is no evidence of radiopaque foreign body. There is ulnar minus variation. IMPRESSION: Medial hand laceration without acute osseous abnormality identified. Marked degenerative findings are present at the 1st carpometacarpal joint. Dictated by: Dictated on workstation # [id number]
[2022-07-01 22:22] VITALS: BP 165/93
== END 2022-07-01 22:24 | disposition home or self-care (01) ==
LOC: EDUNIT# 20:19 → ER FS 20:21
DX: S61.412A Laceration without foreign body of left hand, initial encounter (principal); S76.012A Strain of muscle, fascia and tendon of left hip, initial encounter; S50.02XA Contusion of left elbow, initial encounter; I48.91 Unspecified atrial fibrillation; E66.9 Obesity, unspecified; Z68.44 Body mass index [BMI] 60.0-69.9, adult; Z23 Encounter for immunization; Z28.310 Unvaccinated for COVID-19; Z79.01 Long term (current) use of anticoagulants; W01.0XXA Fall on same level from slipping, tripping and stumbling without subsequent striking against object, initial encounter; W26.9XXA Contact with unspecified sharp object(s), initial encounter; Y92.009 Unspecified place in unspecified non-institutional (private) residence as the place of occurrence of the external cause
CPT/HCPCS: 12002; 73130; 90715

== ENCOUNTER 2023-05-12 15:58 | Emergency (ER) | payer MEDICARE, OTHER ==
[~2023-05-12] VITALS: Ht 167 cm; Wt 168.0 kg
[~2023-05-12 15:58] MED LIST changes: -LOSA100T57 PO; +LOSA100T58 PO
--- NOTE | 2023-05-12 16:16 | ED GU-Female ---
General Chief Complaint: - Reproductive Stated Complaint: UTI Nursing Triage Note: PT AMB TO RM 5 PT CO OF UTI SX, PAIN, BURNING AND BLOOD WHEN URINATES. PT STATES HAS SL FEVER LAST PM. STATES HAS SOME DIZZINESS AND NAUSESA Source: patient Exam Limitations: no limitations History of Present Illness Date Seen by Provider: May 12, 2023 Time Seen by Provider: 16:16 Initial Comments To ER with urinary frequency burning and occasionally blood when she urinates. Reports a questionable fever last night. She has some intermittent dizziness and nausea. Symptoms present for 2 to 3 months she states. She has not sought care for this because she "does not like doctors". She is here today because her sister is also being checked out in the emergency room. Symptoms are no worse today than they have been. Timing/Duration: other Severity/Quality: cramping Location: unknown Radiation: none Activities at Onset: none Prior Genitourinary Problems: none Associated Symptoms: abdominal pain Allergies and Home Medications Allergies Coded Allergies: Iodinated Contrast Media (Verified Allergy, Unknown, 07/16/19) cefazolin (Verified Allergy, Unknown, 05/12/23) dexamethasone (Unverified Adverse Reaction, Unknown, 07/15/19) dexamethasone sod phosphate (Unverified Adverse Reaction, Unknown, 07/15/19) diphenhydramine HCl (Unverified Adverse Reaction, Unknown, 07/15/19) Patient Home Medication List Home Medication List Reviewed: Yes Diclofenac Sodium (Diclofenac Sodium) 75 Mg Tablet.dr, 75 MG PO BID, (Reported) Entered as Reported by: RAYMOND ANAYA on 07/16/19835 Duloxetine HCl (Duloxetine HCl) 30 Mg Capsule.dr, 30 MG PO HS, (Reported) Entered as Reported by: RAYMOND ANAYA on 07/16/19 08 Gabapentin (Gabapentin) 600 Mg Tablet, 600 MG PO QID, (Reported) Entered as Reported by: RAYMOND ANAYA on 07/16/19835 Hydrocodone Bit/Acetaminophen (HYDROcodone/APAP 10/325 TABLET) 1 Ea Tab, 1 TAB PO Q6H Prescribed by: YAYO OLIVAS on 04/21/21 5086 Levothyroxine Sodium (Levothyroxine Sodium) 25 Mcg Tablet, 25 MCG PO DAILY, (Reported) Entered as Reported by: RAYMOND ANAYA on 07/16/19 0836 Levothyroxine Sodium (Levothyroxine Sodium) 200 Mcg Tablet, 200 MCG PO DAILY, (Reported) Entered as Reported by: RAYMOND ANAYA on 07/16/19835 Losartan Potassium (Losartan Potassium) 100 Mg Tablet, 100 MG PO DAILY, (Reported) Entered as Reported by: RAYMOND ANAYA on 07/16/1936 Nitrofurantoin Monohyd/M-Cryst (Macrobid 100 mg Capsule) 100 Mg Capsule, 1 TAB PO BID Prescribed by: ALVA LI on 02/18/21 0210 Ondansetron (Ondansetron Odt) 4 Mg Tab.rapdis, 4 MG PO Q6H PRN for NAUSEA/VOMITING Prescribed by: CORWIN CASANOVA on 04/04/21 0329 Review of Systems Review of Systems Constitutional: see HPI EENTM: see HPI Respiratory: no symptoms reported Cardiovascular: no symptoms reported Genitourinary: no symptoms reported Musculoskeletal: no symptoms reported Skin: no symptoms reported Psychiatric/Neurological: No Symptoms Reported Past Gpilsmv-Dextzr-Zfidor Hx Patient Social History Tobacco Use?: No Substance use?: No Alcohol Use?: No Pt feels they are or have been: No Immunizations Up To Date Tetanus Booster (TDap): Unknown Seasonal Allergies Seasonal Allergies: No Past Medical History Surgery/Hospitalization HX: sinus surgery, thyroidectomy, CHRONIC BACK PAIN, HTN, GB Surgeries: Yes (sinus surgery) Parathyroidectomy, Thyroidectomy Respiratory: No Cardiac: Yes Atrial Fibrillation, Hypertension Neurological: Yes Neuropathy 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 Genitourinary: Yes UTI-Chronic Gastrointestinal: No Musculoskeletal: Yes Arthritis, Rheumatoid Arthritis, Chronic Back Pain Endocrine: Yes Hypothyroidsim, Lupus HEENT: No Cancer: No Psychosocial: No Integumentary: No Family Medical History Colon cancer 19 MOTHER Completed stroke 19 MOTHER Myocardial infarction 19 FATHER Heart Disease, Cancer, Stroke Mother (69 ): cancer unknown type Father ( at 60): Heart attack One brother: stroke three sisters: one dx with lupus Physical Exam Vital Signs Vital Signs - First Documented 05/12/23 16:05 Temp 36.5 Pulse 87 Resp 20 B/P (MAP) 166/103 (124) Pulse Ox 96 Capillary Refill : Height, Weight, BMI Height: 5'6.00" Weight: 331lbs. 0oz. 150.861783rh; 60.00 BMI Method:Stated General Appearance: WD/WN, no apparent distress, obese Neck: non-tender, full range of motion Respiratory: no respiratory distress, no accessory muscle use Gastrointestinal: normal bowel sounds, non tender, soft Neurologic/Psychiatric: alert, normal mood/affect, oriented x 3 Skin: normal color, warm/dry Procedures/Interventions Suture Size: 4-0 Progress/Results/Core Measures Suspected Sepsis SIRS Temperature: Pulse: Respiratory Rate: Laboratory Tests 05/12/23 16:27: White Blood Count 9.7 Blood Pressure / Mean: Laboratory Tests 05/12/23 16:27: Creatinine 0.83, Platelet Count 215 Results/Orders Lab Results Laboratory Tests Test 05/12/23 16:15 05/12/23 16:27 Range/Units Urine Color ROSS H Urine Clarity CLEAR Urine pH 6.0 5-9 Urine Specific [place] 1.025 H 1.016-1.022 Urine Protein 2+ H NEGATIVE Urine Glucose (UA) NEGATIVE NEGATIVE Urine Ketones NEGATIVE NEGATIVE Urine Nitrite NEGATIVE NEGATIVE Urine Bilirubin NEGATIVE NEGATIVE Urine Urobilinogen 1.0 < = 1.0 MG/DL Urine Leukocyte Esterase 1+ H NEGATIVE Urine RBC (Auto) 3+ H NEGATIVE Urine RBC 10-25 H /HPF Urine WBC 2-5 /HPF Urine Squamous Epithelial Cells RARE /HPF Urine Crystals NONE /LPF Urine Bacteria TRACE /HPF Urine Casts NONE /LPF Urine Mucus NEGATIVE /LPF Urine Culture Indicated NO White Blood Count 9.7 4.3-11.0 10^3/uL Red Blood Count 5.41 H 3.80-5.11 10^6/uL Hemoglobin 15.8 11.5-16.0 g/dL Hematocrit 52 35-52 % Mean Corpuscular Volume 96 80-99 fL Mean Corpuscular Hemoglobin 29 25-34 pg Mean Corpuscular Hemoglobin Concent 30 L 32-36 g/dL Red Cell Distribution Width 14.1 10.0-14.5 % Platelet Count 215 130-400 10^3/uL Mean Platelet Volume 11.5 9.0-12.2 fL Immature Granulocyte % (Auto) 0 % Neutrophils (%) (Auto) 64 42-75 % Lymphocytes (%) (Auto) 27 12-44 % Monocytes (%) (Auto) 7 0-12 % Eosinophils (%) (Auto) 1 0-10 % Basophils (%) (Auto) 1 0-10 % Neutrophils # (Auto) 6.2 1.8-7.8 10^3/uL Lymphocytes # (Auto) 2.6 1.0-4.0 10^3/uL Monocytes # (Auto) 0.7 0.0-1.0 10^3/uL Eosinophils # (Auto) 0.1 0.0-0.3 10^3/uL Basophils # (Auto) 0.1 0.0-0.1 10^3/uL Immature Granulocyte # (Auto) 0.0 0.0-0.1 10^3/uL Sodium Level 142 135-145 MMOL/L Potassium Level 4.4 3.6-5.0 MMOL/L Chloride Level 101 98-107 MMOL/L Carbon Dioxide Level 32 21-32 MMOL/L Anion Gap 9 5-14 MMOL/L Blood Urea Nitrogen 17 7-18 MG/DL Creatinine 0.83 0.60-1.30 MG/DL Estimat Glomerular Filtration Rate 81 BUN/Creatinine Ratio 20 Glucose Level 88 70-105 MG/DL Calcium Level 9.2 8.5-10.1 MG/DL My Orders Orders - LUCERO MARIN APRN Ua Culture If Indicated (05/12/23 16:09) Cbc With Automated Diff (05/12/23 16:10) Basic Metabolic Panel (05/12/23 16:10) Ed Iv/Invasive Line Start (05/12/23 16:10) Vital Signs/I&O 05/12/23 16:05 Temp 36.5 Pulse 87 Resp 20 B/P (MAP) 166/103 (124) Pulse Ox 96 Capillary Refill : Departure Communication (Admissions) Hematuria noted on urinalysis, no pyuria or nitrites. Her pain is 2 out of 10 which is consistent with what it has been for the past 2 to 3 months. She will need CT to further evaluate the hematuria and likely urology referral. However, this does not need to be done in the emergency room today as her symptoms are no different or worse than they have been for the past 3 months. She needs to call her primary care provider on Sunday for follow-up. Impression Primary Impression: Hematuria Additional Impression: Dysuria Disposition: 01 HOME, SELF-CARE Condition: Stable Departure-Patient Inst. Decision time for Depature: 16:45 Referrals: [facility] (PCP) Primary Care Physician RAYMOND LUBIN APRN (Family) Primary Care Physician Patient Instructions: Dysuria, Adult (DC) Add. Discharge Instructions: 1. Call your primary care provider Sunday to discuss further evaluation of the blood in your urine which may include a CT scan and urology referral. No evidence of urinary tract infection today. All discharge instructions reviewed with patient and/or family. Voiced understanding. LUCERO MARIN APRN May 12, 2023 16:16
[2023-05-12 16:26] LABS: BILIRUBIN,URINE NEGATIVE (NEGATIVE); CLARITY,URINE CLEAR; COLOR,URINE AMBER; GLUCOSE, URINE (UA) NEGATIVE (NEGATIVE); KETONES,URINE NEGATIVE (NEGATIVE); LEUKOCYTE ESTERASE ,URINE 1+ (NEGATIVE); NITRITE,URINE NEGATIVE (NEGATIVE); PROTEIN,URINE 2+ (NEGATIVE)
[2023-05-12 16:30] LABS: BASOPHILS # (AUTO) 0.1 10^3/uL (0.0-0.1); BASOPHILS % (AUTO) 1 % (0-10); EOSINOPHILS # (AUTO) 0.1 10^3/uL (0.0-0.3); EOSINOPHILS % (AUTO) 1 % (0-10); HEMATOCRIT 52 % (35-52); HEMOGLOBIN 15.8 g/dL (11.5-16.0); LYMPHOCYTES # (AUTO) 2.6 10^3/uL (1.0-4.0); LYMPHOCYTES % (AUTO) 27 % (12-44); MEAN CORPUSCULAR HEMOGLOBIN 29 pg (25-34); MEAN CORPUSCULAR HGB CONC 30 g/dL (32-36); MEAN CORPUSCULAR VOLUME 96 fL (80-99); MEAN PLATELET VOLUME 11.5 fL (9.0-12.2); MONOCYTES # (AUTO) 0.7 10^3/uL (0.0-1.0); MONOCYTES % (AUTO) 7 % (0-12); NEUTROPHILS # (AUTO) 6.2 10^3/uL (1.8-7.8); NEUTROPHILS % (AUTO) 64 % (42-75); PLATELET COUNT 215 10^3/uL (130-400); WHITE BLOOD COUNT 9.7 10^3/uL (4.3-11.0)
[2023-05-12 16:34] LABS: BACTERIA,URINE TRACE /HPF; SQUAMOUS EPITHELIAL CELL,UR RARE /HPF
[2023-05-12 16:41] LABS: POTASSIUM 4.4 MMOL/L (3.6-5.0)
[2023-05-12 16:42] LABS: CALCIUM 9.2 MG/DL (8.5-10.1)
[2023-05-12 16:47] LABS: CREATININE SERUM 0.83 MG/DL (0.60-1.30)
[2023-05-12 17:20] VITALS: BP 139/99
== END 2023-05-12 17:23 | disposition home or self-care (01) ==
LOC: EDUNIT# 15:58 → ER 15:59
DX: R30.0 Dysuria (principal); R31.9 Hematuria, unspecified; E66.9 Obesity, unspecified; Z68.44 Body mass index [BMI] 60.0-69.9, adult
CPT/HCPCS: 36415; 80048; 81000; 85025